=== PATIENT | male | born 1945 | race Caucasian/White ===

== ENCOUNTER → 2019-12-17 | Outpatient (CLI) | payer MEDICARE, OTHER ==
--- NOTE | 2019-12-17 09:33 | Diagnostic Imaging Report ---
X-ray KUB History: Kidney stones Comparison: None. Findings: The study is submitted on 2 images. There is presence of at least 3 calcific densities overlying the right kidney. One measures approximately 7.4 mm. The other measures approximately 20 mm. A third density measures 7 mm. There is no calcific density overlying the left kidney. There is no calcific density seen along the course of the ureters. Multiple small pelvic densities most likely represent pelvic phleboliths. Another density in the right iliac fossa overlies the:. Incidental findings: No aggressive bony lesions. Lung bases clear. Copious amounts of fecal matter in the colon. Surgical clarke in the right inguinal fossa. Vascular calcification. Impression: At least 3 right renal calculi as above. Signed by: Danny Mccall MD on 12/17/2019 9:30 AM
--- NOTE | 2019-12-17 09:41 | Diagnostic Imaging Report ---
Renal ultrasound Comparison: 09/14/2012 Clinical History: UTI Technique: Sonographic evaluation of the kidneys was performed. Multiple images were submitted for interpretation, using a low-frequency curved transducer. Right kidney: The kidney measures 9.7 x 6.2 x 5 cm. The cortical echogenicity is within normal limits. The cortex measures 1.6 cm. There is no evidence of a focal mass. There is no evidence of hydronephrosis. There is no evidence of a shadowing stone. There is no evidence of a cyst. There is no evidence of a perinephric fluid collection. Flow is visualized to the right kidney. Left kidney: The kidney measures 9.9 x 5.6 x 4.9 cm cm. The cortical echogenicity is within normal limits. The cortex measures 1.8 cm. There is no evidence of a focal mass. There is no evidence of hydronephrosis. There is no evidence of a shadowing stone. There is ultrasonographic evidence of a simple midpole renal cyst measuring approximately 0.8 cm. There is no evidence of a perinephric fluid collection. Flow is visualized to the left kidney. Survey images of the bladder demonstrate no abnormality. The post void residual is 109.1 cc. The prostate gland measures 2.6 x 2.6 x 3.2 cm with a volume of 11.3 cc. Impression: No structural abnormality of the visualized kidney and parts of the urinary tract. No calculi. No hydronephrosis. Signed by: Danny Mccall MD on 12/17/2019 9:38 AM
== END ==
LOC: US 08:33
PROVIDERS: ATTEND Urology
DX: N20.0 Calculus of kidney (principal); N39.0 Urinary tract infection, site not specified
CPT/HCPCS: 74018; 76770; 76857

== ENCOUNTER 2020-04-16 14:28 | Emergency (ER) | payer MEDICARE, OTHER ==
--- NOTE | 2020-04-16 14:30 | NUR ---
BLADDER SCAN 115
--- OUTSIDE RECORDS SUMMARY | 2020-04-16 15:09 | XMS REPORT | Clinical Summary ---
Author Author [facility] Address Unknown Phone Unavailable Care Team Providers Care Pusher Operator Name Role Phone Asked, No Pcp PCP Unavailable Allergies Not on File Medications Not on file Active Problems Not on file Encounters Care Team Description Date Type Specialty Jayda Alfonso MD Bilateral pulmonary embolism (HCC) 11/08/2019 Hospital Radiology Encounter Jayda Alfonso MD Acute embolism and thrombosis of unspeci fied deep veins of right lower extremity (HCC) 11/08/2019 [facility] Procedural Cardiolo gy Encounter 11/08/2019 Travel 11/05/2019 Travel 10/27/2019 Travel Jayda Alfonso MD Other pulmonary embolism without acute c or pulmonale (HCC) (Primary Dx); Bilateral pulmonary embolism (HCC); Acute embolism and thrombosis of unspecified deep veins of right lower extremity (HCC); Dyspnea and respiratory abnormalities 10/18/2019 Transcribe Access Orders after 04/16/2019 Social History Date Tobacco Use Types Packs/Day Years Used Never Assessed Sex Assigned at Date Recorded Not on file Last Filed Vital Signs Not on file Plan of Treatment Health Maintenance Due Date Last Done Comments COLONOSCOPY SCREENING 1996 SHINGLES VACCINES (#1) 1996 INFLUENZA VACCINE 01/08/2020 08/17/2019 65+ PNEUMOCOCCAL VACCINE Completed 10/28/2012 Procedures Comments Procedure Name Priority Date/Time Associated Diag nosis NM LUNG PERFUSION IMAGING Routine 11/08/2019 Bila teral pulmonary 12:55 PM CDT embolism (HCC) US DUPLEX VENOUS LOWER Routine 11/08/2019 Acute e mbolism and EXTREMITY RIGHT 11:44 AM CDT thrombosis of unspe cified deep veins of right lower extremity (HCC) after 04/16/2019 Results * NM Lung Perfusion Imaging (11/08/2019 12:55 PM CDT) Specimen Narrative Performed At PROCEDURE: NM LUNG PERFUSION IMAGING [facility] INDICATION: Pulmonary embolism. COMPARISON: No relevant comparison im aging. TECHNIQUE: The patient was injected wit h 5 mCi of Tc-99m MAA, IV. Planar images of the chest were obtained. FINDINGS: Small to moderate-sized def ects are noted in the lung bases. No large size defects. IMPRESSION: 1. Low probability for acute PE. 2. No evidence for significant chroni c PE. [facility]-[id number] Procedure Note Interface, Radiology Results Incoming - 11/08/2019 1:16 PM CDT PROCEDURE: NM LUNG PERFUSION IMAGING INDICATION: Pulmonary embolism. COMPARISON: No relevant comparison imaging. TECHNIQUE: The patient was injected with 5 mCi of Tc-99m MAA, IV. Planar images of the chest were obtained. FINDINGS: Small to moderate-sized defects are noted in the lung bases. No large size defects. IMPRESSION: 1. Low probability for acute PE. 2. No evidence for significant chronic PE. [facility]-[id number] Performing Organization Address City/State/ZIP Code P gurpreet Number [facility] [address] [place] [address] * duplex venous lower extremity (11/08/2019 11:44 AM CDT) Specimen Narrative Performed At [facility] Vascular U ltrasound Laboratory Lower Extr emity Venous Report [id number], [address] [address], [place] [address] Pat.Name: CEASAR ARGUETA.ID: [id number] .Date: 11/08/2019 Refer.MD: JAYDA ALFONSO MD Exam Time: 11:24:00 AM Study Type:LE Venous Height: 67in Weight: 177lb BSA: 1.92 m2 Age: 11 1945,89Y Sex: MALE Sonogrphr: Aarti Harris RVT Pat. Stat.:Outpatient Tape Vol: JJ, CPT - 4: 96720 Echo Event ID:[id number] Order ID: [id number] Reason for Study:Follow up on history o f DVT in RLE. History of PE. Procedures: Colorflow, Grayscale/2D, Pu lsed wave Doppler Race: C SUMMARY: * Normal Reflux Criteria: < 0.5 secon ds * Abnormal Reflux Criteria: > or equa l to 0.5 seconds DUPLEX SCAN OBSERVATIONS Deep Veins Superficial Veins Right Left Right Left EIV GSV (prox) Normal CFV Normal Normal (above knee) Femoral Normal GSV (dist) Normal Profunda Normal (below knee) Popliteal Normal PT (prox) Normal SSV Normal PT (dist) Normal Peroneal Normal Gastrocs Normal RIGHT:There is normal compressibility w ith no evidence of echogenic material noted within the lumen of the visualized veins.Colorflow and Doppler signals are normal. LEFT:There is normal compressibility wi th no evidence of echogenic material noted within the lumen of the common femoral vein.Colorflow and Doppler signals are normal. PRELIMINARY FINDINGS 1. No evidence of venous thrombosis of visualized veins. 2. Incidental finding- enlarged lymph n odes seen in the right groin region. PHYSICIAN INTERPRETATION Venous examination of the right lower e xtremity and left groin demonstrated no evidence of venous thro mbosis in the visualized veins. Normal compressibility and augmentation of all veins visualized. Incidental finding- enlarged lymph node s seen in the right groin region. FINDINGS: Signed 11/08/2019 02:20 PM Polo Flores MD, RPVI Procedure Note Interface, Radiology Results In - 11/08/2019 2:20 PM CDT Vascular Ultrasound Laboratory Lower Extremity Venous Report [id number] [address], [place] [address] Pat.Name: CEASAR ARGUETA.ID: [id number] .Date: 11/08/2019 Refer.MD: JAYDA ALFONSO MD Exam Time: 11:24:00 AM Study Type:LE Venous Height: 67in Weight: 177lb BSA: 1.92 m2 Age: 11 1945,89Y Sex: MALE Sonogrphr: Aarti Harris RVT Pat. Stat.:Outpatient Tape Vol: JJ, CPT - 4: 30762 Echo Event ID:[id number] Order ID: [id number] Reason for Study:Follow up on history of DVT in RLE. History of PE. Procedures: Colorflow, Grayscale/2D, Pulsed wave Doppler Race: C SUMMARY: * Normal Reflux Criteria: < 0.5 seconds * Abnormal Reflux Criteria: > or equal to 0.5 seconds DUPLEX SCAN OBSERVATIONS Deep Veins Superficial Veins Right Left Right Left EIV GSV (prox) Normal CFV Normal Normal (above knee) Femoral Normal GSV (dist) Normal Profunda Normal (below knee) Popliteal Normal PT (prox) Normal SSV Normal PT (dist) Normal Peroneal Normal Gastrocs Normal RIGHT:There is normal compressibility with no evidence of echogenic material noted within the lumen of the visualized veins.Colorflow and Doppler signals are normal. LEFT:There is normal compressibility with no evidence of echogenic material noted within the lumen of the common femoral vein.Colorflow and Doppler signals are normal. PRELIMINARY FINDINGS 1. No evidence of venous thrombosis of v isualized veins. 2. Incidental finding- enlarged lymph no abdirizak seen in the right groin region. PHYSICIAN INTERPRETATION Venous examination of the right lower extremity and left groin demonstrated no evidence of venous thrombosis in the visualized veins. Normal compressibility and augmentation of all veins visualized. Incidental finding- enlarged lymph nodes seen in the right groin region. FINDINGS: Signed 11/08/2019 02:20 PM Polo Flores MD, RPVI Performing Organization Address City/State/ZIP Code [facility] Number [facility] [address] [place] [address] after 04/16/2019 Insurance Type Payer Benefit Subscriber ID Effective Phone Address Plan / Dates Group Medicare MEDICARE MEDICARE [id number] 2011- JAVIER, PART A AND Present [place] Commercial [employer] OF [id number] 2012-P MARGARET rose Advance Directives For more information, please contact: [phone] Patient Mathematician Explanation Type Date Recorded Advance Directives, Living Will and Medical Power of [place]
--- OUTSIDE RECORDS SUMMARY | 2020-04-16 15:09 | XMS REPORT | Clinical Summary ---
Author Author LISET [facility] Address Unknown Phone Unavailable Care Team Providers Care [facility] [employer] Name Role Phone John Garrett MD PCP [phone] Allergies Comments Active Allergy Reactions Severity Noted Date Clopidogrel 06/20/2019 Medications End Date Status Medication Sig Dispensed Refills Start Date Active ALLOPURINOL ORAL Take 300 mg 0 by mouth daily . Active atorvastatin (LIPITOR) 80 Take 80 mg by 0 MG tablet mouth daily. 06/26/2020 Active aspirin 81 MG EC tablet Take 1 tablet 0 (81 mg total) 0 by mouth daily Ok to resume 1 week post op on 06/28/19. 06/26/2020 Active metoprolol (LOPRESSOR) 25 Take 0.5 0 06/09 MG tablet tablets (12.5 0 mg total) by mouth 2 (two) times daily. 01/27/2021 Active busPIRone (BUSPAR) 10 MG Take 1 tablet 0 01/27 tablet (10 mg total) 0 by mouth 2 (two) times daily. Active lactulose (CHRONULAC) 20 Take 15 mLs 0 01/27 gram/30 mL solution (10 g total) 0 by mouth 3 (three) times daily as needed. 01/28/2021 Active alfuzosin (UROXATRAL) 10 Take 1 tablet 0 01/28 mg 24 hr tablet (10 mg total) 0 by mouth daily with dinner You already have this at home. 01/29/2021 Active phenytoin (DILANTIN) 200 Take 1 60 capsule 3 0 MG ER capsule capsule (200 0 mg total) by mouth 2 (two) times daily No more refills through my office.. 01/28/2021 Active amantadine HCL Take 1 0 (SYMMETREL) 100 mg capsule (100 0 capsule mg total) by mouth daily You ALready have this at home. 01/28/2020 Discontinued (Stop Taking at Discharge) omega-3 fatty Take by mouth 0 acids-vitamin E (FISH daily. OIL) 1,000 mg Cap 06/20/2019 Discontinued (Error) lisinopril Take 10 mg by 0 (PRINIVIL,ZESTRIL) 10 MG mouth daily. tablet 06/27/2019 Discontinued (Reorder) aspirin 81 MG EC tablet Take 1 tablet 0 (81 mg total) 9 by mouth daily. 07/16/2019 nitroglycerin (NITROSTAT) Put 1 pill 90 tablet 1 0.4 MG SL tablet under tongue 9 every 5min as needed for chest pain.No more than 3 doses in 15min. 06/21/2019 Discontinued ticagrelor (BRILINTA) 90 Take 1 tablet 60 tablet 3 mg Tab tablet (90 mg total) 9 by mouth 2 (two) times daily. 01/28/2020 Discontinued (Stop Taking at Discharge) losartan (COZAAR) 100 MG Take 100 mg 0 tablet by mouth daily. 06/27/2019 Discontinued (Stop Taking at Discharge) metoprolol (TOPROL-XL) 25 Take 25 mg by 0 MG 24 hr tablet mouth daily. 07/28/2019 amantadine HCl Take 10 mLs 600 mL 0 (SYMMETREL) 50 mg/5 mL (100 mg 0 solution total) by mouth 2 (two) times daily for 30 days. 01/28/2020 Discontinued (Stop Taking at Discharge) amLODIPine (NORVASC) 2.5 Take 1 tablet 0 06/28 MG tablet (2.5 mg 0 total) by mouth daily. 01/28/2020 Discontinued (Stop Taking at Discharge) ondansetron (ZOFRAN) 4 Inject 2 mLs 20 mL 0 mg/2 mL injection (4 mg total) 0 intravenously every 8 (eight) hours as needed. 07/07/2019 HYDROcodone-acetaminophen Take 1 tablet 30 tablet 0 (NORCO 5-325) 5-325 mg by mouth 0 per tablet every 6 (six) hours as needed for Pain (moderate pain 4-6) for up to 10 days. Max Daily Amount: 4 tablets 01/28/2020 Discontinued (Stop Taking at Discharge) morphine 2 mg/mL Inject 1 mL 0 injection (2 mg total) 0 intravenously every 4 (four) hours as needed (severe pain 7-10). Max Daily Amount: 12 mg 01/28/2020 Discontinued (Stop Taking at Discharge) senna-docusate (SENOKOT Take 1 tablet 0 S) 8.6-50 mg per tablet by mouth 2 0 (two) times daily. 07/27/2019 bisacodyl (DULCOLAX) 5 mg Take 2 30 tablet 0 EC tablet tablets (10 0 mg total) by mouth daily as needed for Constipation for up to 30 days. 07/07/2019 bisacodyl (DULCOLAX) 10 Place 1 12 0 mg suppository suppository suppository 0 (10 mg total) rectally daily as needed for up to 10 days. 01/28/2020 Discontinued (Stop Taking at Discharge) hydrALAZINE (APRESOLINE) Inject 0.5 1 mL 0 0 20 mg/mL injection mLs (10 mg 0 total) intravenously every 15 (fifteen) minutes as needed (goal SBP<130). 01/28/2020 Discontinued (Stop Taking at Discharge) labetalol (NORMODYNE, Inject 2 mLs 0 06/27/19 2 TRANDATE) 5 mg/mL Syrg (10 mg total) 0 intravenously every 15 (fifteen) minutes as needed (High Blood Pressure SBP>180). 01/28/2020 Discontinued (Stop Taking at Discharge) white petrolatum-mineral Place 1 0 06/27 oil 80-20 % Oint application 0 into both eyes nightly. 07/11/2019 chlorhexidine (PERIDEX) Use as 120 mL 0 0.12 % solution directed 15 0 mLs in the mouth or throat 2 (two) times daily for 14 days. 01/28/2020 Discontinued (Stop Taking at Discharge) famotidine, PF, 20 mg/2 Inject 2 mLs 0 mL Soln (20 mg total) 0 intravenously 2 (two) times daily. 01/28/2020 Discontinued (Stop Taking at Discharge) midazolam (VERSED) 1 Inject 1 mL 0 mg/mL Soln injection (1 mg total) 0 intravenously every 2 (two) hours as needed (anxiety/agit ation). Max Daily Amount: 12 mg 01/28/2020 Discontinued (Stop Taking at Discharge) pantoprazole (PROTONIX) Inject 40 mg 0 in D5W (MBP) IVPB intravenously 0 daily. 01/28/2020 Discontinued (Stop Taking at Discharge) calcium gluconate IVPB Inject 1 g 0 02 intravenously 0 as needed (For Serum ionized Calcium 1 to 1.1 mMol/L). 01/28/2020 Discontinued (Stop Taking at Discharge) calcium gluconate IVPB Inject 2 g 0 02 intravenously 0 as needed (For Serum ionized Calcium 0.85 to 0.99 mMol/L). 01/28/2020 Discontinued (Stop Taking at Discharge) polyethylene glycol Take 17 g by 14 each 0 06/28 (GLYCOLAX) 17 gram packet mouth daily. 0 07/11/2019 benzoyl peroxide 2.5 % Apply 1 0 02 Crea application 0 topically 2 (two) times daily for 14 days. 01/29/2020 Discontinued amantadine HCL Take 1 0 (SYMMETREL) 100 mg capsule (100 0 capsule mg total) by mouth daily. Active Problems Problem Noted Date Seizure 01/27/2020 Left acute arterial ischemic stroke, MCA (middle cere bral artery) 06/21/2019 Hemorrhagic stroke 06/21/2019 Cerebral edema 06/21/2019 Midline shift of brain due to hematoma 06/21/2019 Encephalopathy 06/21/2019 Bilateral carotid artery disease 06/21/2019 CAD (coronary artery disease) 06/21/2019 HTN (hypertension) 06/21/2019 Acute respiratory failure 06/21/2019 TIA (transient ischemic attack) 06/20/2019 Aphasia 06/20/2019 Chest pain, unspecified type 07/10/2018 NSTEMI (non-ST elevated myocardial infarction) 07/10 CAD S/P percutaneous coronary angioplasty 06/30/2013 Encounters Care Team Description Date Type Specialty Gladys Jaimes MD Daniel, Jamuna V., MD Seizure (HCC) (Primary Dx) 01/27/2020 [facility] dicine - Encounter 01/29/2020 01/27/2020 Travel Jaya Gifford MD 06/21/2019 Anesthesia Event Carlos Mohan MD CRANIOTOMY 06/21/2019 Surgery Steven Srinivasan MD Neason, MD Joe Nunez, MD Jennifer Farnsworth, MD Riya Desai, José Antonio Romero MD TIA (transient ischemic attack) (Primary Dx); Aphasia; Hemorrhagic stroke (HCC); Left acute arterial ischemic stroke, MCA (middle cerebral artery) (HCC); Dysphagia, unspecified type; Impaired mobility and ADLs 06/20/2019 [facility] dicine - Encounter 06/27/2019 06/20/2019 Orders Only [facility] dicine 06/20/2019 Travel after 04/16/2019 Family History Medical History Relation Name Comments Coronary artery disease Father Fatal [place] Deep vein thrombosis Mother Relation Name Status Comments Father Mother Other Social History Date Tobacco Use Types Packs/Day Years Used Quit: 06/30/1978 Former Smoker Smokeless Tobacco: Never Used Drinks/Week oz/Week Comments Alcohol Use No Sex Assigned at Date Recorded Not on file Last Filed Vital Signs Reading Time Taken Comments Vital Sign 147/82 01/29/2020 11:11 AM CDT Blood Pressure 79 01/29/2020 11:11 AM CDT Pulse 36 C (96.8 F) 01/29/2020 11:11 AM CDT Temperature 18 01/29/2020 11:11 AM CDT Respiratory Rate 99% 01/29/2020 11:11 AM CDT Oxygen Saturation 24% 06/23/2019 11:12 PM [facility]ELER Inhaled Oxygen Concentration 88.5 kg (195 lb) 01/27/2020 9:39 AM CDT Weight 182.9 cm (6') 01/27/2020 9:39 AM CDT Height 26.45 01/27/2020 9:39 AM CDT Body Mass Index Plan of Treatment Health Maintenance Due Date Last Done Comments COLON CANCER SCREENING 1945 COLONOSCOPY PNEUMOCOCCAL 65+ YRS (1 2011 of 1 - [id number]) MEDICARE ANNUAL WELLNESS 04/10/2012 (YEAR 2 or FIRST YEAR if no IPPE) INFLUENZA VACCINE (#1) 2020 Implants Device Identifier Shelf Expiration Date Model / Serial / L ot Implanted Type Area Manufactur er 421.527 / / Cvr Bur-Hl Lp-Neuro 17mm Ti Ns IMPLANTS SYNTHES :SY 421.527 - [id number] [employer]TH[employer] [place] Implanted: Qty: 2 on 06/21/2019 by Carlos Mohan MD at [facility] 421.502 / / Plt Str Lp-Neuro 2h 12mm Ti Ns IMPLANTS SYNTHES :SY 421.502 - [id number] [employer]TH[employer] [place] Implanted: Qty: 2 on 06/21/2019 by Carlos Mohan MD at [facility] .104.05 / / Scr Sd Mtrxneu 4mm Ti Ns IMPLANTS SYNTHES:SY .104.05 - [id number] NTHES [place] Implanted: Qty: 12 on 06/21/2019 by Carlos Mohan MD at [facility] [id number] 03/18/2020 [id number] / / [id number] [employer]nergy [employer] 2.50 X 12 [place] Implanted: Qty: 1 on 07/15/2018 by John Garnett MD at [facility] 04/08/2019 [id number] / / 6f Angioseal TERUMO Implanted: Qty: 1 on 07/15/2018 by John Zaidi MD at [facility] Description:6 F angioseal deploed in RFA [id number] / / Synergy 3.0x12mm [place] Implanted: Qty: 1 on 07/15/2018 by John Garnett MD at [facility] Procedures Comments Procedure Name Priority Date/Time Associated Diag nosis PHENYTOIN LEVEL, TOTAL STAT 01/29/2020 2:27 PM CDT PHENYTOIN LEVEL, TOTAL Routine 01/29/2020 AND FREE 5:52 AM CDT CBC (HEMOGRAM ONLY) Routine 01/29/2020 5:52 AM CDT BASIC METABOLIC PANEL (7) Routine 01/29/2020 5:52 AM CDT CARBAMAZEPINE LEVEL Routine 01/29/2020 5:52 AM CDT TROPONIN I STAT 01/29/2020 5:52 AM CDT EEG AWAKE AND DROWSY Routine 01/28/2020 8:11 AM CDT CBC (HEMOGRAM ONLY) Routine 01/28/2020 1:22 AM CDT BASIC METABOLIC PANEL (7) Routine 01/28/2020 1:22 AM CDT TROPONIN I STAT 01/28/2020 1:22 AM CDT COMPREHENSIVE METABOLIC STAT 01/27/2020 PANEL 1:03 PM CDT TROPONIN I STAT 01/27/2020 1:03 PM CDT XR CHEST 1 VIEW STAT 01/27/2020 PORTABLE/BEDSIDE 11:09 AM CDT SARS-COV2/RT-PCR ([facility] & STAT 01/27/2020 REF LABS) 10:45 AM CDT URINALYSIS W/ REFLEX STAT 01/27/2020 URINE CULTURE 10:44 AM CDT CBC W/PLT COUNT & AUTO STAT 01/27/2020 DIFFERENTIAL 10:41 AM CDT CBC W/PLT COUNT & AUTO STAT 01/27/2020 DIFFERENTIAL 10:[address] SPINE CERVICAL WITHOUT STAT 01/27/2020 IV CONTRAST 10:[address] BRAIN WITHOUT IV STAT 01/27/2020 CONTRAST 10:29 AM CDT REPORT OF PROCEDURE - 06/30/2019 ENDOSCOPY SCAN 10:00 AM [facility] UROLOGY REPORT - SCAN 06/29/2019 3:24 PM [facility]AND [facility]OVELER RHYTHM STRIP - SCAN 06/29/2019 3:23 PM [facility]ER POCT-GLUCOSE METER Routine 06/27/2019 1:17 PM [facility]ER POCT-GLUCOSE METER Routine 06/27/2019 5:49 AM [facility]ER PHOSPHORUS Routine 06/27/2019 5:10 AM [facility] MAGNESIUM Routine 06/27/2019 5:10 AM S[facility] SHOVELER CBC (HEMOGRAM ONLY) Routine 06/27/2019 5:10 AM [facility]ER POCT-GLUCOSE METER Routine 06/26/2019 11:57 PM [facility]ER XR ABDOMEN / KUB 1 VIEW STAT 06/26/2019 9:28 PM [facility]ER POCT-GLUCOSE METER Routine 06/26/2019 5:59 PM [facility]ER POCT-GLUCOSE METER Routine 06/26/2019 12:58 PM S[facility]ER POCT-GLUCOSE METER Routine 06/26/2019 6:57 AM [facility]ER PHOSPHORUS Routine 06/26/2019 5:49 AM S[facility]OVELER MAGNESIUM Routine 06/26/2019 5:49 AM SAND SHOVELER CBC (HEMOGRAM ONLY) Routine 06/26/2019 5:49 AM SAND [facility]ELER XR ABDOMEN / KUB 1 VIEW STAT 06/26/2019 5:13 AM SAND SHOVELER POCT-GLUCOSE METER Routine 06/25/2019 10:13 PM [facility]ER RHYTHM STRIP - SCAN 06/25/2019 3:50 PM [facility]ER XR ESOPH SWALLOW FUNCTION Routine 06/25/2019 W/CINE VIDEO 11:34 AM [facility]ER POCT-GLUCOSE METER Routine 06/25/2019 6:23 AM [facility]ER PHOSPHORUS Routine 06/25/2019 4:45 AM [facility]ER MAGNESIUM Routine 06/25/2019 4:45 AM SAND [facility]OVELER CBC (HEMOGRAM ONLY) Routine 06/25/2019 4:45 AM SAND SHOVELER POCT-GLUCOSE METER Routine 06/25/2019 12:51 AM S[facility]OVELER POCT-GLUCOSE METER Routine 06/24/2019 5:30 PM SAND SHOVELER POCT-GLUCOSE METER Routine 06/24/2019 12:28 PM SAND SHOVELER POCT-GLUCOSE METER Routine 06/24/2019 6:13 AM [facility]ER PHOSPHORUS Routine 06/24/2019 3:44 AM [facility]ER MAGNESIUM Routine 06/24/2019 3:44 AM [facility]OVELER BASIC METABOLIC PANEL (7) Routine 06/24/2019 3:44 AM [facility] CBC (HEMOGRAM ONLY) Routine 06/24/2019 3:44 AM [facility]ER POCT-GLUCOSE METER Routine 06/23/2019 11:17 PM [facility]ER TRANSFUSION SERVICE 06/23/2019 REPORT - SCAN 6:[address] BRAIN WITHOUT IV BRAXTON 06/23/2019 CONTRAST 5:00 PM [facility]ER XR CHEST 1 VIEW Routine 06/23/2019 PORTABLE/BEDSIDE 2:19 PM [facility] POCT-GLUCOSE METER Routine 06/23/2019 12:57 PM S[facility]OVELER POCT-GLUCOSE METER Routine 06/23/2019 6:05 AM [facility]ER PHOSPHORUS Routine 06/23/2019 5:42 AM S[facility]ELER MAGNESIUM Routine 06/23/2019 5:42 AM SAND [facility]OVELER BASIC METABOLIC PANEL (7) Routine 06/23/2019 5:42 AM [facility]ER CBC (HEMOGRAM ONLY) Routine 06/23/2019 5:42 AM [facility]ER LIPID PANEL Routine 06/23/2019 5:42 AM SAND SHOVELER POCT-GLUCOSE METER Routine 06/23/2019 12:27 AM SAND SHOVELER PREPARE LEUKO-REDUCED STAT 06/22/2019 PLATELETS 11:54 PM SAND SHOVELER ECHOCARDIOGRAM REPORT - 06/22/2019 SCAN 9:22 PM [facility]ER POCT-GLUCOSE METER Routine 06/22/2019 6:29 PM [facility]ER PHOSPHORUS Routine 06/22/2019 6:24 PM [facility]ER POTASSIUM Routine 06/22/2019 6:24 PM S[facility]ER MAGNESIUM Routine 06/22/2019 6:24 PM [facility] TRANSFUSION SERVICE 06/22/2019 REPORT - SCAN 6:02 PM [facility]ER XR ABDOMEN / KUB 1 VIEW STAT 06/22/2019 12:06 PM [facility]ER 2D ECHO W/ DOPPLER Routine 06/22/2019 (CW/PW/COLOR) 9:23 AM [facility] PHOSPHORUS Routine 06/22/2019 3:12 AM S[facility]ER MAGNESIUM Routine 06/22/2019 3:12 AM S[facility] SHOVELER BASIC METABOLIC PANEL (7) Routine 06/22/2019 3:12 AM [facility]ER CBC (HEMOGRAM ONLY) Routine 06/22/2019 3:12 AM [facility]ER LIPID PANEL Routine 06/22/2019 3:12 AM S[facility]ELER TRANSFUSE LEUKO-REDUCED STAT(After 06/21/2019 PLATELETS Hours 12:23 PM SAND SHOVELER Page Staff) TISSUE EXAM AP Routine 06/21/2019 10:56 AM [facility]ER CRANIOTOMY 06/21/2019 Brain bleed (HCC) 9:05 AM [facility]ER POCT-P2Y12 PLATELET Routine 06/21/2019 AGGREGATION 8:00 AM [facility] HEMOGLOBIN A1C Routine 06/21/2019 7:19 AM [facility]ER POCT-GLUCOSE METER Routine 06/21/2019 6:[address] BRAIN WITHOUT IV BRAXTON 06/21/2019 CONTRAST 6:05 AM [facility]ER TRANSFUSE LEUKO-REDUCED STAT(After 06/21/2019 PLATELETS Hours 5:28 AM SAND SHOVELER Page Staff) ABORH, MANUAL STAT 06/21/2019 2:16 AM [facility]ER CBC W/PLT COUNT & AUTO Routine 06/21/2019 DIFFERENTIAL 1:43 AM [facility]ER LIPID PANEL Routine 06/21/2019 1:43 AM [facility]ER HEPATIC FUNCTION PANEL Routine 06/21/2019 1:43 AM [facility]ER MAGNESIUM Routine 06/21/2019 1:43 AM S[facility]ER CBC W/PLT COUNT & AUTO Routine 06/21/2019 DIFFERENTIAL 1:43 AM SAND [facility]ELER BASIC METABOLIC PANEL (7) Routine 06/21/2019 1:43 AM [facility]ER POCT-GLUCOSE METER Routine 06/21/2019 1:32 AM S[facility]ER TYPE AND SCREEN, STAT 06/21/2019 AUTOMATED 1:[address]/CTA CAROTID STAT 06/20/2019 11:32 PM S[facility]ER CTA BRAIN STAT 06/20/2019 11:32 PM [facility]ER POCT-GLUCOSE METER Routine 06/20/2019 10:55 PM S[facility]ER MR BRAIN WITHOUT IV STAT 06/20/2019 CONTRAST 10:24 PM [facility]ER CONT WAVE PULSED DOPPLER Routine 06/20/2019 9:11 PM S[facility]ER CTA BRAIN STAT 06/20/2019 6:[address]/CTA CAROTID STAT 06/20/2019 6:51 PM SAND SHOVELER CBC W/PLT COUNT & AUTO STAT 06/20/2019 DIFFERENTIAL 6:27 PM S[facility] SH[facility]ER B-TYPE NATRIURETIC FACTOR STAT 06/20/2019 (BNP) 6:27 PM SAND SH[facility]ER PT/APTT STAT 06/20/2019 6:27 PM SAND SH[facility]ER CBC W/PLT COUNT & AUTO STAT 06/20/2019 DIFFERENTIAL 6:27 PM SAND SHOVELER TROPONIN I STAT 06/20/2019 6:27 PM SAND SHOVELER MAGNESIUM STAT 06/20/2019 6:27 PM SAND SHOVELER BASIC METABOLIC PANEL (7) STAT 06/20/2019 6:27 PM SAND SHOVELER POCT-GLUCOSE METER Routine 06/20/2019 6:[address] BRAIN/STROKE TEST STAT 06/20/2019 DESIGN 6:14 PM SAND [facility]ER ECG 12-LEAD Routine 06/20/2019 6:06 PM SAND [facility]ELER Procedure Note - Interface, External Ris In - 06/21/2019 6:17 AM S[facility]ER Ventricula r Rate 67 BPM Atrial Rate 67 BPM P-R Interval 178 ms QRS Duration 88 ms Q-T Interval 370 ms QTC Calculatio n(Bazett) 390 ms P [place] 36 degrees R [place] 9 degrees T [place] 22 degrees Normal sinus rhythm Inferior infarct (cited on or before 6) Cannot rule out Anterior infarct , age undetermin ed Abnormal ECG When compared with ECG of 9 18:05, Nonspecifi c T wave abnormalit y now evident in Inferior leads QT has shortened ECG 12-LEAD STAT 06/20/2019 6:06 PM SAND SH[facility]ER after 04/16/2019 Results * Phenytoin level, total (01/29/2020 2:27 PM CDT) Pathologist [facility] Phenytoin 7.0 (L) 10.0 - 20.0 ug/mL [facility] Specimen Blood Narrative Performed At Jingle Writer ID - GRANT Leal [facility] Performing Organization Address City/State/Zipcode Ph one Number [place] [phone] [place], [place] [address] [facility] * Troponin I (01/29/2020 5:52 AM CDT) Only the most recent of 4 results within the time period is included. Pathologist [facility] Troponin I 0.01 0.00 - 0.03 ng/mL [facility] Specimen Blood Narrative Performed At Troponin I (TnI) levels must be interpreted in the co ntext of the presenting [facility] symptoms and the clinical findings. Elevated TnI leve ls indicate myocardial [facility] damage, but are not specific for ischem ic heart disease. Elevated TnI levels are seen in patients with other cardiac con ditions (including myocarditis and congestive heart failure), and slight T nI elevations occur in patients with other conditions, including sepsis, shae al failure, acidosis, acute neurological disease, and persistent tachyarrhythmia . Jingle Writer ID - GRANT M Performing Organization Address City/State/Zipcode Ph one Number [address] [place] * CBC (Hemogram only) (01/29/2020 5:52 AM CDT) Only the most recent of 8 results within the time period is included. WBC 6.9 3.5 - 10.5 K/L [facility] RBC 3.88 (L) 4.63 - 6.08 M/L [facility] Hemoglobin 12.2 (L) 13.7 - 17.5 GM/DL [facility] Hematocrit 35.8 (L) 40.1 - 51.0 % [facility] MCV 92.3 (H) 79.0 - 92.2 fL [facility] MCH 31.4 25.7 - 32.2 pg [facility] MCHC 34.1 32.3 - 36.5 GM/DL [facility] RDW 15.9 (H) 11.6 - 14.4 % [facility] Platelets 275 150 - 450 K/CU MM [facility] MPV 8.9 (L) 9.4 - 12.4 fL [facility] nRBC 0 0 - 0 /100 WBC [facility] Specimen Blood Performing Organization Address City/State/Zipcode Ph one Number [facility] [address] [place], [place] [address] [facility] * Phenytoin level, total and free (01/29/2020 5:52 AM CDT) Phenytoin 9.0 (L) 10.0 - 20.0 ug/mL [facility] MAN Comment: HOSPITAL Testing performed at [facility]. Dilantin, Free 0.55 (L) 1.00 - 2.00 mcg/ml [facility] RMAN Comment: HOSPITAL Testing performed at [facility]. Specimen Blood Performing Organization Address City/[facility] Ph one Number [facility] [address], [address] [place] [address] * Carbamazepine level (01/29/2020 5:52 AM CDT) Carbamazepine 4.1 4.0 - 12.0 ug/mL [facility] Specimen Blood Narrative Performed At Jingle Writer ID - GRANT Leal [facility] Performing Organization Address City/[facility] Ph one [facility] [place] [phone] [place], [place] [address] [facility] * Basic Metabolic Panel (01/29/2020 5:52 AM CDT) Only the most recent of 7 results within the time period is included. Sodium 132 (L) 136 - 145 meq/L [facility] Potassium 4.4 3.5 - 5.1 meq/L [facility] Chloride 99 98 - 107 meq/L [facility] CO2 24 22 - 29 meq/L [facility] BUN 12 7 - 21 mg/dL [facility] Creatinine 0.92 0.57 - 1.25 mg/dL [facility] Glucose 103 70 - 105 mg/dL [facility] Calcium 9.7 8.4 - 10.2 mg/dL [facility] EGFR 81Comment: ESTIMATED GFR IS mL/min/1.[address] [facility] NOT ACCURATE CREATININE [facility] CLEARANCE IN PREDICTING MEDICAL CENTER GLOMERULAR FILTRATION RATE. ESTIMATED GFR IS NOT APPLICABLE FOR DIALYSIS PATIENTS. Specimen Blood Narrative Performed At Jingle Writer SHEN - GRANT Leal [facility] Performing Organization Address City/State/Zipcode Ph one Number [facility] [address] [place], [place] [address] [facility] * EEG AWAKE AND DROWSY (01/28/2020 8:11 AM CDT) Specimen Narrative Performed At Date(s) of EE01/28/2020 GE RIS Date of report: 01/28/2020 Start time: 7:36 AM Stop time: 8:11 AM ACC#: [id number] EEG #: [id number] CPT: 53626 ICD10: R56.9 HISTORY: 74 year old male had witnessed GTC with postictal confusion, last seizure was 09/2019. Patient had ac ethan ischemic that progressed to hemorrhagic stroke 06/2019 MEDICATIONS THAT COULD AFFECT EEG: Allo purinol, amlodipine, Aspirin, Atorvastatin, Famotidine, Hydralazine, Labetalol, Losartan, Metoprolol, Midazolam, Morphine, Ondans etron, Pantoprazole, Senna docusate TECHNICAL SUMMARY: This is a digital video-EEG recorded wi 32 input channels reviewed with bipolar and referential montages u sing the modified combinatorial system nomenclature. DESCRIPTION OF RECORD: During a maximally alert state, the pos terior dominant rhythm was 8 Hz and well regulated over the right oc cipital area. The background over the right hemisphere is represente d by 5-7 hz frequencies. The activity over the left hemisphere is do minated by a moderate voltage 1.5 - 3 hz slow waves. The background a mplitudes over the left fronto-central region are higher in vol tage and sharply configured. Rare epileptiform sharp waves are prese nt in the left central region (C3). Drowsy or sleep patterns were not observed. EVENTS: No clinical or electrographic s eizures were recorded. HV: Hyperventilation was not performed. PHOTIC STIMULATION: Flash stimulation w as performed 1-33 Hz. Photic stimulation was physiologic and didn't elicit any abnormal discharges IMPRESSION: Abnormal awake EEG - Mild diffuse background slowing - Focal slowing over the left hemispher e - amplitude asymmetry in the left front o-central area (breach effect) - Rare epileptiform sharp waves in the left central region (C3. CLINICAL CORRELATION: The background sl owing as seen in this record indicate the presence of a mild encepha lopathy. The focal slow activity indicates the presence of a le alvaro affecting broadly the left hemisphere. The background asymmet ry suggests the presence of an underlying skull defect (breach effect) . The epileptiform sharp waves indicate the presence of a lesion with a propensity towards the generation of epileptic seizures. Olivia Keenan MD Neurophysiology/Epilepsy Fellow Attending note: I reviewed this EEG rec ord and I agree with the details of the report. Janel Jalloh MD, PhD Neurophysiology/Epilepsy attending. Procedure Note Interface, External Ris In - 01/28/2020 2:35 PM CDT Date(s) of EE01/28/2020 Date of report: 01/28/2020 Start time: 7:36 AM Stop time: 8:11 AM ACC#: [id number] EEG #: [id number] CPT: 90963 ICD10: R56.9 HISTORY: 74 year old male had witnessed GTC with postictal confusion, last seizure was 09/2019. Patient had acute ischemic that progressed to hemorrhagic stroke 06/2019 MEDICATIONS THAT COULD AFFECT EEG: Allopurinol, amlodipine, Aspirin, Atorvastatin, Famotidine, Hydralazine, Labetalol, Losartan, Metoprolol, Midazolam, Morphine, Ondansetron, Pantoprazole, Senna docusate TECHNICAL SUMMARY: This is a digital video-EEG recorded with 32 input channels reviewed with bipolar and referential montages using the modified combinatorial system nomenclature. DESCRIPTION OF RECORD: During a maximally alert state, the posterior dominant rhythm was 8 Hz and well regulated over the right occipital area. The background over the right hemisphere is represented by 5-7 hz frequencies. The activity over the left hemisphere is dominated by a moderate voltage 1.5 - 3 hz slow waves. The background am plitudes over the left fronto-central region are higher in voltage and sharply configured. Rare epileptiform sharp waves are present in the left central region (C3). Drowsy or sleep patterns were not observed. EVENTS: No clinical or electrographic seizures were recorded. HV: Hyperventilation was not performed. PHOTIC STIMULATION: Flash stimulation was performed 1-33 Hz. Photic stimulation was physiologic and didn't elicit any abnormal discharges IMPRESSION: Abnormal awake EEG - Mild diffuse background slowing - Focal slowing over the left hemisphere - amplitude asymmetry in the left fronto -central area (breach effect) - Rare epileptiform sharp waves in the l eft central region (C3. CLINICAL CORRELATION: The background slowing as seen in this record indicate the presence of a mild encephalopathy. The focal slow activity indicates the presence of a lesion affecting broadly the left hemisphere. The background asymmetry suggests the presence of an underlying skull defect (breach effect). The epileptiform sharp waves indicate the presence of a lesion with a propensity towards the generation of epileptic seizures. Olivia Keenan MD Neurophysiology/Epilepsy Fellow Attending note: I reviewed this EEG record and I agree with the details of the report. Janel Jalloh MD, PhD Neurophysiology/Epilepsy attending. Performing Organization Address City/State/Zipcode Ph one Number GE RIS * Comprehensive metabolic panel (01/27/2020 1:03 PM CDT) Protein, Total 7.3 6.0 - 8.3 gm/dL [facility] Albumin 4.1 3.5 - 5.0 g/dL [facility] Alkaline 128 40 - 150 U/L [facility] Total Bilirubin 0.4 0.2 - 1.2 mg/dL [facility] Sodium 129 (L) 136 - 145 meq/L [facility] Potassium 4.5 3.5 - 5.1 meq/L [facility] Chloride 94 (L) 98 - 107 meq/L [facility] CO2 25 22 - 29 meq/L [facility] BUN 8 7 - 21 mg/dL [facility] Creatinine 0.80 0.57 - 1.25 mg/dL [facility] Glucose 106 (H) 70 - 105 mg/dL [facility] Calcium 9.2 8.4 - 10.2 mg/dL [facility] AST 18 5 - 34 U/L [facility] ALT 23 6 - 55 U/L [facility] EGFR 95Comment: ESTIMATED GFR IS mL/min/1.[address] [facility] NOT ACCURATE CREATININE [facility] CLEARANCE IN PREDICTING [facility] CENTER GLOMERULAR FILTRATION RATE. ESTIMATED GFR IS NOT APPLICABLE FOR DIALYSIS PATIENTS. Specimen Blood Narrative Performed At Jingle Writer ID - NTP [facility] Performing Organization Address City/State/Zipcode Ph one Number [facility] [address] [address] [facility] C[facility] * XR chest 1 view portable / bedside (01/27/2020 11:09 AM CDT) Only the most recent of 2 results within the time period is included. Specimen Narrative Performed At FINAL REPORT [facility] CLINICAL HISTORY: sob TECHNIQUE: 1 view of the chest. COMPARISON: 06/23/2019 IMPRESSION: There are mildly prominent lung marking s. There is no lobar consolidation or significant pleural fl uid. The cardiomediastinal silhouette is magnified by technique. Signed: Waylon Trevino MD Report Verified Date/Time: 01/27/2020 11:25:20 Reading [facility] Reading Room Procedure Note Interface, External Ris In - 01/27/2020 11:30 AM CDT FINAL REPORT CLINICAL HISTORY: sob TECHNIQUE: 1 view of the chest. COMPARISON: 06/23/2019 IMPRESSION: There are mildly prominent lung markings. There is no lobar consolidation or significant pleural fluid. The cardiomediastinal silhouette is magnified by technique. Signed: Waylon Trevino MD Report Verified Date/Time: 01/27/2020 11:25:20 Reading Location: [facility] Radiology Reading Room Performing Organization Address City/State/Zipcode Ph one Number GE R[facility] * SARS-CoV2/RT-PCR (Asymptomatic ONLY) (01/27/2020 10:45 AM CDT) SARS-COV2/RT-PC Negative Not Detected, [facility] R Negative, See [facility] external report for MEDICAL CENTER linked test SARS-COV-2 [facility]ON [facility] PERFORMING LAB [facility] Specimen Other - Nasopharyngeal wall structure (body structure) Narrative Performed At Negative result for this test determine s that SARS-CoV-2 RNA was not present in [facility] the specimen above the Limit of Detecti on (LOD). However, Negative results do [facility] not preclude SARS-CoV-2 infection and s hould not be used as the sole basis for treatment or patient management decisio ns. Negative results must be combined with clinical observations, patient his tory, and epidemiological information. A false negative result may occur if a sp ecimen is improperly collected, transported or handled. A false negat jackie result should be considered if patient's recent exposures or clinical presentation indicate that COVID-19 (SARS-CoV-2) is likely and diagnostic t ests for other causes of illness are negative. Re-testing should be consid ered in cases of suspected false negatives. The limit of detection for this assay i s 800 copies/mL. This SARS CoV-2 test is a real-time RT- PCR test intended for the qualitative detection of nucleic acid from SARS-CoV -2 in a nasopharyngeal swab specimen collected from individuals suspected of COVID-19 by their healthcare provider. This test has not been Food and Drug Ad ministration (FDA) cleared or approved. This is a modified version of an appr caroline Emergency Use Authorization (EUA) and is in the process of review by the FDA. Once authorized by the FDA, the issued EUA will be effective until the declaration that circumstances exist justifying the authorization of the robert rgency use of in vitro diagnostic tests for detection and/or diagnosis of COVID -19 is terminated under Section 564(b)(2) of the Act or the EUA is revoked under Section 564(g) of the Act. Fact Sheet for Healthcare Providers: https://www.JobSerf/sites/default/files/product/documents/Fact_Sheet_HC_Provi bwgc_Btmf_NEAG-JmO-6.pdf Fact Sheet for Healthcare Patients: https://www.[employer]/sites/default/files/product/documents/Fact_Sheet_Patients _Stnm_WEHA-JxW-6.pdf Performing Laboratory: [place] [address] Performing Organization Address City/State/Zipcode Ph one Number [address] [facility] * Urinalysis w/Microscopic + Reflex to Culture (01/27/2020 10:44 AM CDT) Color, UA Light Yellow [facility] Clarity, UA Clear [facility] Specific 1.014 1.001 - 1.035 [facility] [place] pH, UA 6.0 5.0 - 8.0 [facility] Protein, UA 30 mg/dL (A) Negative [facility] Glucose, UA Negative Negative [facility] Ketones, UA Trace (A) Negative [facility] Bilirubin, UA Negative Negative [facility] Blood, UA Negative Negative [facility] Nitrite, UA Negative Negative [facility] Leukocytes, UA Negative Negative [facility] Urobilinogen, 0.2 0.2 - 1.0 mg/dL [facility] RBC, UA <1 /HPF [facility] WBC, UA 1 /HPF [facility] Mucus Rare [facility] Specimen Source [facility] Specimen Urine Narrative Performed At Jingle Writer ID - [auto] [facility] Jingle Writer ID - [facility] Performing Organization Address City/State/Zipcode Ph one Number [facility] [address] [facility], [place] [address] MEDICAL CENTER * CBC with platelet count + automated diff (01/27/2020 10:41 AM CDT) Only the most recent of 3 results within the time period is included. WBC 4.9 3.5 - 10.5 K/L [facility] RBC 2.74 (L) 4.63 - 6.08 M/L [facility] Hemoglobin 8.5 (L) 13.7 - 17.5 GM/DL [facility] Hematocrit 26.1 (L) 40.1 - 51.0 % [facility] MCV 95.3 (H) 79.0 - 92.2 fL [facility] MCH 31.0 25.7 - 32.2 pg [facility] MCHC 32.6 32.3 - 36.5 GM/DL [facility] RDW 15.7 (H) 11.6 - 14.4 % [facility] Platelets 143 (L) 150 - 450 K/CU MM [facility] MPV 9.0 (L) 9.4 - 12.4 fL [facility] nRBC 0 0 - 0 /100 WBC [facility] % Neutros 73 % [facility] % Lymphs 11 % [facility] % Monos 11 % [facility] % Eos 4 % [facility] % Baso 1 % [facility] # Neutros 3.57 1.78 - 5.38 K/L [facility] # Lymphs 0.55 (L) 1.32 - 3.57 K/L [facility] # Monos 0.51 0.30 - 0.82 K/L [facility] # Eos 0.18 0.04 - 0.54 K/L [facility] # Baso 0.05 0.01 - 0.08 K/L [facility] Immature 0 0 - 1 % [facility] Specimen Blood Performing Organization Address City/State/Zipcode Ph one Number [facility] [address] [place], [place] [address] [address] * CT spine cervical without IV contrast (01/27/2020 10:29 AM CDT) Specimen Narrative Performed At FINAL REPORT [facility] [place]) CT Cervical spine CLINICAL HISTORY: Neck pain, initial ex am SEIZURES TECHNIQUE: Contiguous axial images of t he cervical spine with coronal and sagittal reformations to assess the alignment. This exam was performed according to the departmental dose optimization program which includes automated exposure contr ol, adjustment of the mA and/or kV according to the patient size , and/or use of an iterative reconstruction technique. COMPARISON: None FINDINGS: The vertebral body heights are preserve d without fracture or dislocation. There is no prevertebral s oft tissue swelling. There is straightening of the cervical curvature with maintained alignment. Allowing for the lack of intrathecal co ntrast, there is no critical appearing central canal stenosis. There are scattered subcentimeter lymph nodes in the neck. There is biapical emphysematous disease. IMPRESSION: No cervical fracture or dislocation. Signed: Waylon Trevino MD Report Verified Date/Time: 01/27/2020 11:49:52 Reading Location: [facility] Reading Room Procedure Note Interface, External Ris In - 01/27/2020 11:52 AM CDT FINAL REPORT CT Cervical spine CLINICAL HISTORY: Neck pain, initial exam SEIZURES TECHNIQUE: Contiguous axial images of the cervical spine with coronal and sagittal reformations to assess the alignment. This exam was performed according to the departmental dose optimization program which includes automated exposure control, adjustment of the mA and/or kV according to the patient size, and/or use of an iterative reconstruction technique. COMPARISON: None FINDINGS: The vertebral body heights are preserved without fracture or dislocation. There is no prevertebral soft tissue swelling. There is straightening of the cervical curvature with maintained alignment. Allowing for the lack of intrathecal contrast, there is no critical appearing central canal stenosis. There are scattered subcentimeter lymph nodes in the neck. There is biapical emphysematous disease. IMPRESSION: No cervical fracture or dislocation. Signed: Waylon Trevino MD Report Verified Date/Time: 01/27/2020 11:49:52 Reading Location: [facility] Radiology Reading Room Performing Organization Address City/State/Zipcode Ph one Number [employer] [facility] * CT brain without IV contrast (01/27/2020 10:29 AM CDT) Only the most recent of 3 results within the time period is included. Specimen Narrative Performed At FINAL REPORT [facility] CT Head without contrast CLINICAL HISTORY: Altered mental status SEIZURES TECHNIQUE: Contiguous axial CT images t hrough the head without contrast. This exam was performed accor ding to the departmental dose optimization program which includes aut omated exposure control, adjustment of the mA and/or kV accordin g to the patient size, and/or use of an iterative reconstruction tech nique. COMPARISON: 06/23/2019 FINDINGS: There is no CT evidence of acute infarc t or intracranial hemorrhage. The previously acute left middle cerebr al artery distribution infarct is now chronic with encephalomalacia pr imarily in the posterior division. There is periventricular and subcortical white matter hypodensity which is nonspecific but co mpatible with chronic microvascular ischemic change. There ar e atherosclerotic calcifications of the intracranial circ ulation. There is generalized parenchymal volume loss without hydroce phalus, midline shift, or apparent mass effect. There are no extr a-axial fluid collections. A left-sided craniotomy is again seen. Th e visualized paranasal sinuses are well-aerated. IMPRESSION: No CT evidence of acute infarct, hemorr zahira, or hydrocephalus. Chronic left middle cerebral artery dis tribution infarct. Signed: Waylon Trevino MD Report Verified Date/Time: 01/27/2020 11:42:33 Reading Location: [facility] Radiolo [facility] Reading Room Procedure Note Interface, External Ris In - 01/27/2020 11:44 AM CDT FINAL REPORT CT Head without contrast CLINICAL HISTORY: Altered mental status SEIZURES TECHNIQUE: Contiguous axial CT images through the head without contrast. This exam was performed according to the departmental dose optimization program which includes automated exposure control, adjustment of the mA and/or kV according to the patient size, and/or use of an iterative reconstruction technique. COMPARISON: 06/23/2019 FINDINGS: There is no CT evidence of acute infarct or intracranial hemorrhage. The previously acute left middle cerebral artery distribution infarct is now chronic with encephalomalacia primarily in the posterior division. There is periventricular and subcortical white matter hypodensity which is nonspecific but compatible with chronic microvascular ischemic change. There are atherosclerotic calcifications of the intracranial circulation. There is generalized parenchymal volume loss without hydrocephalus, midline shift, or apparent mass effect. There are no extra-axial fluid collections. A left-sided craniotomy is again seen. The visualized paranasal sinuses are well-aerated. IMPRESSION: No CT evidence of acute infarct, hemorrhage, or hydrocephalus. 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 Signed: Waylon Trevino MD Report Verified Date/Time: 01/27/2020 11:42:33 Reading Location: [facility] Radiology Reading Room Performing Organization Address City/State/Zipcode Ph one Number [facility] * EKG-SCANNED (06/30/2019 10:00 AM SAND SHOVELER) Narrative Performed At This result has an attachment that is n ot available. * UROLOGY REPORT - SCAN (06/29/2019 3:24 PM SAND SHOVELER) Narrative Performed At This result has an attachment that is n ot available. * RHYTHM STRIP - SCAN (06/29/2019 3:23 PM SAND SHOVELER) Only the most recent of 2 results within the time period is included. Narrative Performed At This result has an attachment that is n ot available. * POC-Glucose meter (06/27/2019 1:17 PM SAND SHOVELER) Only the most recent of 21 results within the time period is included. POC-Glucose 134 (H)Comment: : TESTED AT 70 - 110 mg/dL [facility] [address] [place] [id number]: Jingle Writer/Meeting Planner ID MEDICAL [facility]ENTER = [id number] for ARLENE HAGAIL Specimen Blood Performing Organization Address [facility] one [address] [facility] * Phosphorus (06/27/2019 5:10 AM SAND SHOVELER) Only the most recent of 7 results within the time period is included. Phosphorus 2.9 2.3 - 4.7 mg/dL [facility] Specimen Blood Narrative Performed At Jingle Writer ID - PAPA Collins [facility] Performing Organization Address [facility] one [address] [facility] * Magnesium (06/27/2019 5:10 AM SAND SHOVELER) Only the most recent of 9 results within the time period is included. Magnesium 2.0 1.6 - 2.6 mg/dL [facility] Specimen Blood Narrative Performed At Jingle Writer ID - PAPA L [facility] Performing Organization Address [facility] one [address] [facility] * XR abdomen / KUB 1 view (06/26/2019 9:28 PM SAND SHOVELER) Only the most recent of 3 results within the time period is included. Specimen Narrative Performed At FINAL REPORT [facility] CLINICAL HISTORY: to check [employer] placm ent TECHNIQUE: RAD, ABDOMEN/KUB, 1 VIEW AP COMPARISON: Plain radiograph the abdome n dated 06/26/2019. FINDINGS: Interval retraction of the weighted tip feeding tube with tip overlying the expected location of the first portion the duodenum. Otherwise unchanged examination the int erval. Nonspecific bowel gas pattern. Retained contrast material in the large bowel. Signed: Doug Mays MD Report Verified Date/Time: 06/26/2019 21:46:50 Procedure Note Interface, External Ris In - 06/26/2019 9:49 PM SAND SHOVELER FINAL REPORT CLINICAL HISTORY: to check [employer] placment TECHNIQUE: RAD, ABDOMEN/KUB, 1 VIEW AP COMPARISON: Plain radiograph the abdomen dated 06/26/2019. FINDINGS: Interval retraction of the weighted tip feeding tube with tip overlying the expected location of the first portion the duodenum. Otherwise unchanged examination the interval. Nonspecific bowel gas pattern. Retained contrast material in the large bowel. Signed: Doug Mays MD Report Verified Date/Time: 06/26/2019 21:46:50 Performing Organization Address City/State/Zipcode Ph one Number GE [facility] * FL esoph swallow funct with cine video (06/25/2019 11:34 AM SAND SHOVELER) Specimen Narrative Performed At FINAL REPORT GE [facility] Modified barium swallow exam with [facility] h pathology service CLINICAL HISTORY: Evaluation for aspira tion - discussed with GEOGRAPHY PROFESSOR, MBSS 06/25 IMPRESSION: Please see the speech pathology service report for details. Barium contrast of multiple consistenci es is given to the patient to swallow. Fluoroscopic observation is pe rformed during swallowing. Aspiration was observed with administra tion of thin liquid. Deep penetration was observed with administr ation of nectar thick liquid. Fluoro time: 2.1 min Number of images: 1 Signed: Dominick Holman MD Report Verified Date/Time: 06/25/2019 15:09:11 Reading Location: [address] [address] Procedure Note Interface, External Ris In - 06/25/2019 3:11 PM SAND SHOVELER FINAL REPORT Modified barium swallow exam with speech pathology service CLINICAL HISTORY: Evaluation for aspiration - discussed with GEOGRAPHY PROFESSOR, MBSS 06/25 IMPRESSION: Please see the speech pathology service report for details. Barium contrast of multiple consistencies is given to the patient to swallow. Fluoroscopic observation is performed during swallowing. Aspiration was observed with administration of thin liquid. Deep penetration was observed with administration of nectar thick liquid. Fluoro time: 2.1 min Number of images: 1 Signed: Dominick Holman MD Report Verified Date/Time: 06/25/2019 15:09:11 Reading Location: [address] [address] Performing Organization Address [facility]/[place] Ph one Number GE [facility] * TRANSFUSION SERVICE REPORT - SCAN (06/23/2019 6:01 PM SAND SHOVELER) Only the most recent of 2 results within the time period is included. Narrative Performed At This result has an attachment that is n ot available. * Lipid panel (06/23/2019 5:42 AM SAND SHOVELER) Only the most recent of 3 results within the time period is included. Triglycerides 58 mg/dL [facility] Cholesterol 110 mg/dL [facility] HDL 43 mg/dL [facility] LDL Calculated 55 mg/dL [facility] Specimen Blood Narrative Performed At Triglyceride Reference Range: [facility] Low Risk <150 [facility] Borderline 150-199 High Risk 200-499 Very High Risk >=500 Cholesterol Reference Range: Low Risk <200 Borderline 200-239 High Risk >240 HDL Cholesterol Reference Range: Low Risk >=60 High Risk <40 LDL Cholesterol Reference Range: Optimal <100 Near Optimal 100-129 Borderline 130-159 High 160-189 Very High >=190 Jingle Writer ID - [place] Performing Organization Address [facility]/[place] Ph one Number [place] [address] MEDICAL CENTER * Prepare Leuko-Red PLT (06/22/2019 11:54 PM SAND SHOVELER) Unit ABO O Pos SAFETRACE TX UNIT NUMBER [id number] SAFETRACE TX Status TX_TIMEINCHART SAFETRACE TX Blood Bank PLATELETS SAFETRACE TX Product PRODUCT CODE [id number] SAFETRACE TX Unit ABO O Pos SAFETRACE TX UNIT NUMBER [id number] SAFETRACE TX Status TX_TIMEINCHART SAFETRACE TX Blood Bank PLATELETS SAFETRACE TX Product PRODUCT CODE [id number] SAFETRACE TX Specimen Blood Performing Organization Address City/State/Zipcode Ph one Number SAFETRACE [place] * ECHOCARDIOGRAM REPORT - SCAN (06/22/2019 9:22 PM SAND SHOVELER) Narrative Performed At This result has an attachment that is n ot available. * Potassium (06/22/2019 6:24 PM SAND SHOVELER) Potassium 4.0 3.5 - 5.1 meq/L [facility] Specimen Blood Narrative Performed At Jingle Writer ID - DB [facility] 8 hours after PO replacement completed [facility] Performing Organization Address City/State/[facility] Ph one Number [place] [address] MEDICAL CENTER * 2D Echo W/Doppler(CW/PW/Color) (06/22/2019 9:23 AM SAND SHOVELER) Ejection SLE ECHO Fraction [facility] Specimen Narrative Performed At Transthoracic Echocardiography Report (TTE) [facility] ECH O HEARTLAB Demographics [facility] Patient Name CEASAR ARGUETA ate of Study 06/22/2019 BERNY Gender Male Visit Number [id number] Race Unknown Room Number 7519 Number Date of 1945 Referring Physician Age 74 year(s) Product Development Chemist Macie Blanco [facility] Interpreting Physician BISMARK Cmaarena Procedure Type of Study TTE procedure:LIMITED 2D EC HOCARDIOGRAM, 2DECHO W DOPPLER(CW/PW/COLOR) (Ro utine) Indications:Stroke . Clinical History CAD;PCIX2 07/28;NSTEMI;HTN;HLD;CVA/TIA. Contrast Medium: Definity. Height: 68 inches Weight: 90.72 kg (200 lbs) BSA: 2.04 m^2 BMI: 30.41 kg/m^2 HR: 89 bpm BP: 161/96 mmHg Summary IV saline contrast injection was negati ve for a PFO (patent foramen ovale) at rest and post Valsalva . The left ventricle is chamber size (by PSLAX dimension) is normal (male - LVIDd 4.2-5.8cm) . Mild septal hypertro phy is present. The following segment(s) appear hypokinetic: apical s eptum . The other segments contract normally. Estimated LVEF by qualitative assessment is normal (>60%) . There is minimal aortic stenosis. AoV a alvin at rest by continuity equation is in the range of 2.0 cm2. AoV area by planimtery is in the range of 2.0 cm2. Estimated peak systolic PA pressure is 30-35 mmHg . Signature Findings Left Ventricle The left rahel tricle is chamber size (by PSLAX dime nsion) is normal (male - LVIDd 4.2-5.8cm) . Mild septal hypertrophy is present. The following segment(s) appear hypokinetic: apical sept um . The other segments contract normally. Maren mated LVEF by qualitative assessment is normal (>60 %) . Left Atrium LA size is normal (16-34 ml/m2) . Right Ventricle The right ve ntricular chamber size and systolic func tion are within normal limits. Right Atrium RA size is normal. Atrial Septum IV saline c ontrast injection was negative for a PFO (pat ent foramen ovale) at rest and post Valsalva . Aortic Valve Mild AoV cu sp thickening. Mild AoV cusp calcification. Ther e is minimal aortic stenosis. AoV area at rest by continuity equation is in the rang e of 2.0 cm2. AoV area by planimtery is in the range of 2.0 cm2. Mitral Valve Mild MV jules flet thickening. Tricuspid Valve TV structure is normal. Maren mated peak systolic PA pressure is 30-35 mmHg . Pulmonic Valve Normal PV st ructure and function by limited views and Doppler. Aorta Aortic root size (Sinus of Valsalva diameter) is mild ly dilated. 3.7 cm Pericardium No signifi cant pericardial effusion is visualized. IVC/SVC/PA/PV/Pleural The estimated R A pressure by IVC dynamics 5-10mmHg . Chambers/Structures Left Atrium LA Volume: 48.69 ml LA Area: 17.86 cm^2 LA Vol. Index: 24 ml/m^2 Left Ventricle LVIDd: 4.21 cm LVEDV:79.09 ml LVIDs: 2.86 cm LVESV:23.44 ml LV Septum Diastolic: 1.36 cm LVEF 2D Cube: 68.6 % LV PW Diastolic: 1.09 cm LV FS: 32.1 % LVOT Diameter: 2.14 cm LVEF: 70.4 % Doppler/Quantitative Measurements Mitral Valve MV Peak E-Wave: 0.88 m/s MV Peak A-Wave: 0.94 m/s E/A Ratio: 0.93 Peak Gradient: 3.11 mmHg Deceleration Time: 296.1 msec MV Davi. Peak: Aortic Valve Peak Velocity: 3.02 m/s Mean Velocity: 1.9 m/s Peak Gradient: 36.39 mmHg Mean Gradient: 17.43 mmHg AV Area (continuity): 2.02 cm^2 AV VTI: 52.6 cm AV DVI: 0.56 LVOT Peak Velocity: 1.6 m/s Peak Gradient: 10.18 mmHg Mean Velocity: 1 m/s Mean Gradient: 5.02 mmHg LVOT Diameter: 2.14 cm LVOT VTI: 29.51 cm LVOT Area: 3.6 cm^2 LVOT SV:106.09 ml LVOT CO: 9.44 l/min LVOT CI: 4.63 l/min/m^2 Procedure Note Interface, External Ris In - 06/22/2019 2:49 PM SAND SHOVELER Transthoracic Echocardiography Report (TTE) Demographics Patient Name CEASAR ARGUETA Date of Study 06/22/2019 BERNY Gender Male Visit Number [id number] Race Unknown Room Number 7519 Number Date of 1945 Referring Physician Age 74 year(s) Product Development Chemist Macie Blanco RDCS Interpreting Physician BISMARK Camarena Procedure Type of Study TTE procedure:LIMITED 2D ECHOCARDIOGRAM, 2DECHO W DOPPLER(CW/PW/COLOR) (Routine) Indications:Stroke . Clinical History CAD;PCIX2 07/28;NSTEMI;HTN;HLD;CVA/TIA. Contrast Medium: Definity. Height: 68 inches Weight: 90.72 kg (200 lbs) BSA: 2.04 m^2 BMI: 30.41 kg/m^2 HR: 89 bpm BP: 161/96 mmHg Summary IV saline contrast injection was negative for a PFO (patent foramen ovale) at rest and post Valsalva . The left ventricle is chamber size (by PSLAX dimension) is normal (male - LVIDd 4.2-5.8cm) . Mild septal hypertrophy is present. The following segment(s) appear hypokinetic: apical septum . The other segments contract normally. Estimated LVEF by qualitative assessment is normal (>60%) . There is minimal aortic stenosis. AoV area at rest by continuity equation is in the range of 2.0 cm2. AoV area by planimtery is in the range of 2.0 cm2. Estimated peak systolic PA pressure is 30-35 mmHg . Signature Findings Left Ventricle The left ventricle is chamber size (by PSLAX dimension) is normal (male - LVIDd 4.2-5.8cm) . Mild septal hypertrophy is present. The following segment(s) appear hypokinetic: apical septum . The other segments contract normally. Estimated LVEF by qualitative assessment is normal (>60%) . Left Atrium LA size is normal (16-34 ml/m2) . Right Ventricle The right ventricular chamber size and systolic function are within normal limits. Right Atrium RA size is normal. Atrial Septum IV saline contrast injection was negative for a PFO (patent foramen ovale) at rest and post Valsalva . Aortic Valve Mild AoV cusp thickening. Mild AoV cusp calcification. There is minimal aortic stenosis. AoV area at rest by continuity equation is in the range of 2.0 cm2. AoV area by planimtery is in the range of 2.0 cm2. Mitral Valve Mild MV leaflet thickening. Tricuspid Valve TV structure is normal. Estimated peak systolic PA pressure is 30-35 mmHg . Pulmonic Valve Normal PV structure and function by limited views and Doppler. Aorta Aortic root size (Sinus of Valsalva diameter) is mildly dilated. 3.7 cm Pericardium No significant pericardial effusion is visualized. IVC/SVC/PA/PV/Pleural The estimated RA pressure by IVC dynamics 5-10mmHg . Chambers/Structures Left Atrium LA Volume: 48.69 ml LA Area: 17.86 cm^2 LA Vol. Index: 24 ml/m^2 Left Ventricle LVIDd: 4.21 cm LVEDV:79.09 ml LVIDs: 2.86 cm LVESV:23.44 ml LV Septum Diastolic: 1.36 cm LVEF 2D Cube: 68.6 % LV PW Diastolic: 1.09 cm LV FS: 32.1 % LVOT Diameter: 2.14 cm LVEF: 70.4 % Doppler/Quantitative Measurements Mitral Valve MV Peak E-Wave: 0.88 m/s MV Peak A-Wave: 0.94 m/s E/A Ratio: 0.93 Peak Gradient: 3.11 mmHg Deceleration Time: 296.1 msec MV Davi. Peak: Aortic Valve Peak Velocity: 3.02 m/s Mean Velocity: 1.9 m/s Peak Gradient: 36.39 mmHg Mean Gradient: 17.43 mmHg AV Area (continuity): 2.02 cm^2 AV VTI: 52.6 cm AV DVI: 0.56 LVOT Peak Velocity: 1.6 m/s Peak Gradient: 10.18 mmHg Mean Velocity: 1 m/s Mean Gradient: 5.02 mmHg LVOT Diameter: 2.14 cm LVOT VTI: 29.51 cm LVOT Area: 3.6 cm^2 LVOT SV:106.09 ml LVOT CO: 9.44 l/min LVOT CI: 4.63 l/min/m^2 Performing Organization Address City/State/Zipcode Ph one Number [facility]ART[facility] MKCKESSON CPACS * Transfuse Leuko-Red PLT (06/21/2019 12:23 PM SAND SHOVELER) Only the most recent of 2 results within the time period is included. * Tissue Exam (06/21/2019 10:56 AM SAND SHOVELER) Case Report Surgical Pathology Report [facility] Case: [id number] [facility] Authorizing Provider: Carlos Mohan MD Collected: 06/21/2019 1056 Ordering Location: [place] [address] ICU Received: 06/21/2019 1103 Pathologist: Kelton Brewer MD Specimen: Soft Tissue, Other, left temporal hemorrhage DIAGNOSIS BRAIN, LEFT TEMPORAL, [facility] [place] Electro nically CRANIOTOMY AND EVACUATION: [facility] signed by Kelton Brewer - BLOOD CLOT [facility] MD Celso on -SMALL FRAGMENTS OF 06/29/2019 at 6:37 LEPTOMENINGES PM Signing Pathologist Direct Phone Line: [phone] CPT Code(s) 38463 [facility] CLINICAL Pre and postop diagnosis: LISET ALVAREZ HISTORY Brain bleed [facility] SPECIMEN SOURCE Left temporal hemorrhage [facility] Received fresh labeled with [facility] DANIELA KRAFT DESCRIPTION the patient's name, accession [facility] number and "left temporal MEDICAL CENTER hemorrhage" is a 4 x 3 x 1.5 cm aggregate of multiple, irregular clotted blood fragments. The specimen is serially sectioned and no gross lesions are identified. The specimen is entirely submitted in A1-A5. CG/pl MICROSCOPIC A. Performed. [facility] Specimen Tissue - Soft tissue (navigational concept) Performing Organization Address City/State/Zipcode Ph one Number [facility] [address] [place] [address] MEDICAL CENTER * POCT-P2Y12 PLATELET AGGREGATION (06/21/2019 8:00 AM SAND SHOVELER) POC-P2Y12 Plt 119 [facility]U [facility] Specimen Blood - Entire left upper arm (body structure) Narrative Performed At RANGE INFORMATION: PRU reference range is 194-418. Post Drug Results: Lower PRU [facility] levels are associated with expected ant iplatelet effect. Values may be below the [facility] stated reference range above. The post- drug PRU values reported in the [employer]Now P2Y12 package insert are [id number]. Performing Organization Address City/[facility] Ph one Number [address] [address] [facility] * Hemoglobin A1c (06/21/2019 7:19 AM SAND SHOVELER) Hemoglobin A1C 6.8 (H) 4.3 - 6.1 % [facility] Specimen Blood Performing Organization Address [facility] Ph one Number [address] [facility] * ABORH, manual (06/21/2019 2:16 AM SAND SHOVELER) ABO Grouping A [facility] Rh Factor POS [facility] Specimen Blood Performing Organization Address [facility]/[place] Ph one Number [address] [address] [facility] * Hepatic function panel (06/21/2019 1:43 AM SAND SHOVELER) Protein, Total 7.1Comment: Specimen slightly 6.0 - 8.3 gm/dL [facility] hemformerly [facility] Albumin 3.7Comment: Specimen slightly 3.5 - 5.0 g/dL [facility] hemolyzed [facility] Total Bilirubin 0.4Comment: Specimen slightly 0.2 - 1.2 mg/dL [facility] Bilirubin, 0.2Comment: Specimen slightly 0.1 - 0.5 mg/dL [facility] Alkaline 82 40 - 150 U/L [facility] Phosphatase [facility] AST 36 (H)Comment: Specimen 5 - 34 U/L [facility] ALT 54Comment: Specimen slightly 6 - 55 U/L C HI [facility] hemolyzed [facility] Specimen Blood Narrative Performed At Jingle Writer ID - GRANT Elvis [facility] Performing Organization Address City/[facility]/[place] Ph one Number [facility] [address] [place], [place] [address] [facility] * Type and screen, automated (06/21/2019 1:17 AM SAND SHOVELER) ABO/RH A POSITIVE [facility] Ab Scrn NEGATIVE [facility] Specimen Blood Performing Organization Address [facility]/[place] Ph one Haresh [address] [address] [phone] [facility] * CTA carotid (06/20/2019 11:32 PM SAND SHOVELER) Only the most recent of 2 results within the time period is included. Specimen Narrative Performed At FINAL REPORT [facility] [facility] EXAM: CT, CTANGIO BRAIN, CT, CAROTID, ANGIO CLINICAL INDICATION: Intracranial hemor rhage suspected. Worsening mental status. TECHNIQUE: Helical CT of the head witho ut IV contrast. Postcontrast CTA of the head and CTA of the neck wit h IV contrast. Multiplanar reconstructed images. 3D reconstruction s with MIP images were performed. This exam was performed acco rding to our departmental dose-optimization program, which includ es automated exposure control, adjustment of the mA and/or kV accordin g to patient size and/or use of iterative reconstruction technique. COMPARISON: CTA from four hours prior. FINDINGS: CT HEAD: Parenchyma: There is new acute intrapar enchymal hemorrhage centered at the posterior left temporal lobe con sistent with hemorrhagic conversion of the posterior left MCA te rritory infarction with measurements of approximately 7.5 x 4.1 x 5.2 cm (80 cc). There is associated effacement of the left later al ventricle with trace 0.2 shift of midline structures from left t o right increased compared to prior. No evidence of intraventricular extension of hemorrhage. No evidence of active extravasation when c orrelated to CTA. Extra-axial Collection: None Ventricular System: No hydrocephalus. Paranasal Sinuses: Predominantly prashant r Tympanomastoid Cavities: Normal Other: Atherosclerotic intracranial c alcifications are present. CTA HEAD: Anterior Circulation: Right intracranial internal carotid art cecilia (ICA): Moderate atherosclerotic narrowing of the cavern ous and supraclinoid segments. Right anterior cerebral artery (HELENA): N ormal Right middle cerebral artery (MCA): Nor mal Left intracranial internal carotid magdalena ry (ICA): Mild atherosclerotic narrowing of the cavernous and supracli noid segments. Left anterior cerebral artery (HELENA): No rmal Left middle cerebral artery (MCA): Norm al Anterior communicating artery (AComm): Present Posterior communicating arteries (PComm ): Left PComm present. Right PComm not well visualized. Posterior Circulation: Right posterior cerebral artery (TRUCKING MANAGER): Normal Left posterior cerebral artery (TRUCKING MANAGER): H ypoplastic P1 segment with the remainder of the left TRUCKING MANAGER supplied by t he left posterior communicating artery. Right vertebral artery (VA): Normal Left vertebral artery (VA): Normal Basilar artery (BA): Normal Other: Normal Dural Venous Sinuses: Normal CTA NECK: Aortic arch and proximal great vessels: Atherosclerotic changes without significant narrowing. Right carotid arterial system: Mild (<5 0%) internal carotid artery narrowing from atherosclerosis of the b ifurcation. Left carotid arterial system: Mild (<50 %) internal carotid artery narrowing within the ICA stent secondar y to posterior mural thrombus not changed compared to recent prior. Right vertebral artery: Severe atherosc lerotic narrowing at the origin with patency distally. Left vertebral artery: Severe atheroscl erotic narrowing at the origin Where applicable, evaluation of interna l carotid artery (ICA) stenosis was performed using NASCET-lik e criteria, where the site of greatest stenosis is compared to the di ameter of the ICA distal to the stenosis at a point where the ICA w alls become parallel. Neck Soft Tissues: Unremarkable Osseous Structures: No acute osseous abnormality Included Lung Apices: Centrilobular emp hysema. IMPRESSION: 1. 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 Trace shift of midline stru ctures from left to right increased compared to prior. 2. No short-term interval change on CTA of the head and neck. No acute interval vascular abnormality. Critical findings were relayed to the n eurology resident at 11:36 PM 06/20/2019. Signed: Scot Sotomayor MD Report Verified Date/Time: 06/21/2019 00:01:37 Procedure Note Interface, External Ris In - 06/21/2019 12:03 AM SAND SHOVELER FINAL REPORT EXAM: CT, CTANGIO BRAIN, CT, CAROTID, ANGIO CLINICAL INDICATION: Intracranial hemorrhage suspected. Worsening mental status. TECHNIQUE: Helical CT of the head without IV contrast. Postcontrast CTA of the head and CTA of the neck with IV contrast. Multiplanar reconstructed images. 3D reconstructions with MIP images were performed. This exam was performed according to our departmental dose-optimization program, which includes automated exposure control, adjustment of the mA and/or kV according to patient size and/or use of iterative reconstruction technique. COMPARISON: CTA from four hours prior. FINDINGS: CT HEAD: Parenchyma: There is new acute intraparenchymal hemorrhage centered at the posterior left temporal lobe consistent with hemorrhagic conversion of the posterior left MCA territory infarction with measurements of approximately 7.5 x 4.1 x 5.2 cm (80 cc). There is associated effacement of the left lateral ventricle with trace 0.2 shift of midline structures from left to right increased compared to prior. No evidence of intraventricular extension of hemorrhage. No evidence of active extravasation when correlated to CTA. Extra-axial Collection: None Ventricular System: No hydrocephalus. Paranasal Sinuses: Predominantly clear Tympanomastoid Cavities: Normal Other: Atherosclerotic intracranial calcifications are present. CTA HEAD: Anterior Circulation: Right intracranial internal carotid artery (ICA): Moderate atherosclerotic narrowing of the cavernous and supraclinoid segments. Right anterior cerebral artery (HELENA): Normal Right middle cerebral artery (MCA): Normal Left intracranial internal carotid artery (ICA): Mild atherosclerotic narrowing of the cavernous and supraclinoid segments. Left anterior cerebral artery (HELENA): Normal Left middle cerebral artery (MCA): Normal Anterior communicating artery (AComm): Present Posterior communicating arteries (PComm): Left PComm present. Right PComm not well visualized. Posterior Circulation: Right posterior cerebral artery (TRUCKING MANAGER): Normal Left posterior cerebral artery (TRUCKING MANAGER): Hypoplastic P1 segment with the remainder of the left TRUCKING MANAGER supplied by the left posterior communicating artery. Right vertebral artery (VA): Normal Left vertebral artery (VA): Normal Basilar artery (BA): Normal Other: Normal Dural Venous Sinuses: Normal CTA NECK: Aortic arch and proximal great vessels: Atherosclerotic changes without significant narrowing. Right carotid arterial system: Mild (<50%) internal carotid artery narrowing from atherosclerosis of the bifurcation. Left carotid arterial system: Mild (<50%) internal carotid artery narrowing within the ICA stent secondary to posterior mural thrombus not changed compared to recent prior. Right vertebral artery: Severe atherosclerotic narrowing at the origin with patency distally. Left vertebral artery: Severe atherosclerotic narrowing at the origin Where applicable, evaluation of internal carotid artery (ICA) stenosis was performed using NASCET-like criteria, where the site of greatest stenosis is compared to the diameter of the ICA distal to the stenosis at a point where the ICA schmid become parallel. Neck Soft Tissues: Unremarkable Osseous Structures: No acute osseous abnormality Included Lung Apices: Centrilobular emphysema. IMPRESSION: 1. Left MCA territory infarction with in terval large hemorrhagic conversion. Trace shift of midline structures from left to right increased compared to prior. 2. No short-term interval change on CTA of the head and neck. No acute interval vascular abnormality. Critical findings were relayed to the neurology resident at 11:36 PM 06/20/2019. Signed: Scot Sotomayor MD Report Verified Date/Time: 06/21/2019 00:01:37 Performing Organization Address City/State/Zipcode Ph one Number [employer] * CTA brain (06/20/2019 11:32 PM SAND SHOVELER) Only the most recent of 2 results within the time period is included. Specimen Narrative Performed At FINAL REPORT [facility] [facility] EXAM: CT, CTANGIO BRAIN, CT, CAROTID, ANGIO CLINICAL INDICATION: Intracranial hemor rhage suspected. Worsening mental status. TECHNIQUE: Helical CT of the head witho ut IV contrast. Postcontrast CTA of the head and CTA of the neck wit h IV contrast. Multiplanar reconstructed images. 3D reconstruction s with MIP images were performed. This exam was performed acco rding to our departmental dose-optimization program, which includ es automated exposure control, adjustment of the mA and/or kV accordin g to patient size and/or use of iterative reconstruction technique. COMPARISON: CTA from four hours prior. FINDINGS: CT HEAD: Parenchyma: There is new acute intrapar enchymal hemorrhage centered at the posterior left temporal lobe con sistent with hemorrhagic conversion of the posterior left MCA te rritory infarction with measurements of approximately 7.5 x 4.1 x 5.2 cm (80 cc). There is associated effacement of the left later al ventricle with trace 0.2 shift of midline structures from left t o right increased compared to prior. No evidence of intraventricular extension of hemorrhage. No evidence of active extravasation when c orrelated to CTA. Extra-axial Collection: None Ventricular System: No hydrocephalus. Paranasal Sinuses: Predominantly prashant r Tympanomastoid Cavities: Normal Other: Atherosclerotic intracranial c alcifications are present. CTA HEAD: Anterior Circulation: Right intracranial internal carotid art cecilia (ICA): Moderate atherosclerotic narrowing of the cavern ous and supraclinoid segments. Right anterior cerebral artery (HELENA): N ormal Right middle cerebral artery (MCA): Nor mal Left intracranial internal carotid magdalena ry (ICA): Mild atherosclerotic narrowing of the cavernous and supracli noid segments. Left anterior cerebral artery (HELENA): No rmal Left middle cerebral artery (MCA): Norm al Anterior communicating artery (AComm): Present Posterior communicating arteries (PComm ): Left PComm present. Right PComm not well visualized. Posterior Circulation: Right posterior cerebral artery (TRUCKING MANAGER): Normal Left posterior cerebral artery (TRUCKING MANAGER): H ypoplastic P1 segment with the remainder of the left TRUCKING MANAGER supplied by t he left posterior communicating artery. Right vertebral artery (VA): Normal Left vertebral artery (VA): Normal Basilar artery (BA): Normal Other: Normal Dural Venous Sinuses: Normal CTA NECK: Aortic arch and proximal great vessels: Atherosclerotic changes without significant narrowing. Right carotid arterial system: Mild (<5 0%) internal carotid artery narrowing from atherosclerosis of the b ifurcation. Left carotid arterial system: Mild (<50 %) internal carotid artery narrowing within the ICA stent secondar y to posterior mural thrombus not changed compared to recent prior. Right vertebral artery: Severe atherosc lerotic narrowing at the origin with patency distally. Left vertebral artery: Severe atheroscl erotic narrowing at the origin Where applicable, evaluation of interna l carotid artery (ICA) stenosis was performed using NASCET-lik e criteria, where the site of greatest stenosis is compared to the di ameter of the ICA distal to the stenosis at a point where the ICA w alls become parallel. Neck Soft Tissues: Unremarkable Osseous Structures: No acute osseous abnormality Included Lung Apices: Centrilobular emp hysema. IMPRESSION: 1. 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 Trace shift of midline stru ctures from left to right increased compared to prior. 2. No short-term interval change on CTA of the head and neck. No acute interval vascular abnormality. Critical findings were relayed to the n eurology resident at 11:36 PM 06/20/2019. Signed: Scot Sotomayor MD Report Verified Date/Time: 06/21/2019 00:01:37 Procedure Note Interface, External Ris In - 06/21/2019 12:03 AM SAND SHOVELER FINAL REPORT EXAM: CT, CTANGIO BRAIN, CT, CAROTID, ANGIO CLINICAL INDICATION: Intracranial hemorrhage suspected. Worsening mental status. TECHNIQUE: Helical CT of the head without IV contrast. Postcontrast CTA of the head and CTA of the neck with IV contrast. Multiplanar reconstructed images. 3D reconstructions with MIP images were performed. This exam was performed according to our departmental dose-optimization program, which includes automated exposure control, adjustment of the mA and/or kV according to patient size and/or use of iterative reconstruction technique. COMPARISON: CTA from four hours prior. FINDINGS: CT HEAD: Parenchyma: There is new acute intraparenchymal hemorrhage centered at the posterior left temporal lobe consistent with hemorrhagic conversion of the posterior left MCA territory infarction with measurements of approximately 7.5 x 4.1 x 5.2 cm (80 cc). There is associated effacement of the left lateral ventricle with trace 0.2 shift of midline structures from left to right increased compared to prior. No evidence of intraventricular extension of hemorrhage. No evidence of active extravasation when correlated to CTA. Extra-axial Collection: None Ventricular System: No hydrocephalus. Paranasal Sinuses: Predominantly clear Tympanomastoid Cavities: Normal Other: Atherosclerotic intracranial calcifications are present. CTA HEAD: Anterior Circulation: Right intracranial internal carotid artery (ICA): Moderate atherosclerotic narrowing of the cavernous and supraclinoid segments. Right anterior cerebral artery (HELENA): Normal Right middle cerebral artery (MCA): Normal Left intracranial internal carotid artery (ICA): Mild atherosclerotic narrowing of the cavernous and supraclinoid segments. Left anterior cerebral artery (HELENA): Normal Left middle cerebral artery (MCA): Normal Anterior communicating artery (AComm): Present Posterior communicating arteries (PComm): Left PComm present. Right PComm not well visualized. Posterior Circulation: Right posterior cerebral artery (TRUCKING MANAGER): Normal Left posterior cerebral artery (TRUCKING MANAGER): Hypoplastic P1 segment with the remainder of the left TRUCKING MANAGER supplied by the left posterior communicating artery. Right vertebral artery (VA): Normal Left vertebral artery (VA): Normal Basilar artery (BA): Normal Other: Normal Dural Venous Sinuses: Normal CTA NECK: Aortic arch and proximal great vessels: Atherosclerotic changes without significant narrowing. Right carotid arterial system: Mild (<50%) internal carotid artery narrowing from atherosclerosis of the bifurcation. Left carotid arterial system: Mild (<50%) internal carotid artery narrowing within the ICA stent secondary to posterior mural thrombus not changed compared to recent prior. Right vertebral artery: Severe atherosclerotic narrowing at the origin with patency distally. Left vertebral artery: Severe atherosclerotic narrowing at the origin Where applicable, evaluation of internal carotid artery (ICA) stenosis was performed using NASCET-like criteria, where the site of greatest stenosis is compared to the diameter of the ICA distal to the stenosis at a point where the ICA schmid become parallel. Neck Soft Tissues: Unremarkable Osseous Structures: No acute osseous abnormality Included Lung Apices: Centrilobular emphysema. IMPRESSION: 1. Left MCA territory infarction with in terval large hemorrhagic conversion. Trace shift of midline structures from left to right increased compared to prior. 2. No short-term interval change on CTA of the head and neck. No acute interval vascular abnormality. Critical findings were relayed to the neurology resident at 11:36 PM 06/20/2019. Signed: Scot Sotomayor MD Report Verified Date/Time: 06/21/2019 00:01:37 Performing Organization Address City/State/Zipcode Ph one Number [facility] * MR brain without IV contrast (06/20/2019 10:24 PM SAND SHOVELER) Specimen Narrative Performed At FINAL REPORT [facility] EXAM: MR, BRAIN, WITHOUT CONTRAST CLINICAL INDICATION: TIA. Neurologic deficit. TECHNIQUE: Sagittal and coronal T1-w an d axial T2-FLAIR, GRE, fat-saturated T2-w, and diffusion-w doc ges of the brain with ADC maps. COMPARISON: None. FINDINGS: Parenchyma: There is a late acute to cheney bacute infarction with mild restricted diffusion in the left superi or temporal gyrus of the posterior left MCA territory (putative Wernicke territory). Associated T2/FLAIR signal. Petechial h emorrhage is present. Mild associated edema and mass effect withou t shift of midline structures. Scattered foci of T2 hyperintensity are present in the cerebral white matter that are nonspecific but compati ble with mild chronic microvascular ischemic changes. Extra-axial Collection: FLAIR nonsupp ression and the sulci adjacent to the infarction. Ventricular System: No hydrocephalus Major Intracranial Flow Voids: Normal Osseous Structures: Expected marrow s ignal. Included Orbits: Prior bilateral lens s urgery Paranasal Sinuses: Predominantly prashant r Tympanomastoid Cavities: Normal IMPRESSION: Late acute to subacute infarction in th e left superior temporal gyrus with petechial hemorrhage. Adjacent sul ci with FLAIR nonsuppression suggestive of either venous congestion or small subarachnoid hemorrhage. Background of mild chronic white matter ischemic changes. Signed: Scot Sotomayor MD Report Verified Date/Time: 06/20/2019 22:53:06 Procedure Note Interface, External Ris In - 06/20/2019 10:56 PM SAND SHOVELER FINAL REPORT EXAM: MR, BRAIN, WITHOUT CONTRAST CLINICAL INDICATION: TIA. Neurologic deficit. TECHNIQUE: Sagittal and coronal T1-w and axial T2-FLAIR, GRE, fat-saturated T2-w, and diffusion-w images of the brain with ADC maps. COMPARISON: None. FINDINGS: Parenchyma: There is a late acute to subacute infarction with mild restricted diffusion in the left superior temporal gyrus of the posterior left MCA territory (putative Wernicke territory). Associated T2/FLAIR signal. Petechial hemorrhage is present. Mild associated edema and mass effect without shift of midline structures. Scattered foci of T2 hyperintensity are present in the cerebral white matter that are nonspecific but compatible with mild chronic microvascular ischemic changes. Extra-axial Collection: FLAIR nonsuppression and the sulci adjacent to the infarction. Ventricular System: No hydrocephalus Major Intracranial Flow Voids: Normal Osseous Structures: Expected marrow signal. 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 Adjacent sulci with FLAIR nonsuppression suggestive of either venous congestion or small subarachnoid hemorrhage. Background of mild chronic white matter ischemic changes. Signed: Scot Sotomayor MD Report Verified Date/Time: 06/20/2019 22:53:06 Performing Organization Address [facility] one Number RIS * PT/PTT (06/20/2019 6:27 PM SAND SHOVELER) Protime 13.3 11.9 - 14.2 seconds [facility] INR 1.0 <=5.9 [facility] PTT 27.6 22.5 - 36.0 seconds [facility] Specimen Blood Narrative Performed At Effective 11/04/2018: PT Reference Range Change [facility] New: 11.9-14.2 Previous: 11.7-14.7 [facility] [place] [address] RECOMMENDED COUMADIN/WARFARIN INR THERA PY RANGES STANDARD DOSE: 2.0-3.0 Includes: PROP HYLAXIS for venous thrombosis, systemic embolization; TREATMENT for venous thro mbosis and/or pulmonary embolus. HIGH RISK: Target INR is 2.5-3.5 for pa tients wiht mechanical heart valves. Performing Organization Address [facility] one Number [place] [phone] * B-type Natriuretic Factor (BNP) (06/20/2019 6:27 PM SAND SHOVELER) BNP 50 0 - 100 pg/mL [facility] Specimen Blood Narrative Performed At Jingle Writer ID - RIANNA Medina [facility] Performing Organization Address [facility] one Number [place] [phone] [place] [address] * CT brain/stroke protocol (06/20/2019 6:14 PM SAND SHOVELER) Specimen Narrative Performed At FINAL REPORT GE RIS CT, BRAIN/STROKE PROTOCOL CLINICAL INDICATION: Neuro deficit(s) , subacute r/o cva COMPARISON: None TECHNIQUE: Noncontrast axial CT imagi ng of the brain and skull. DOSE REDUCTION: Dose modulation, iterat jackie reconstruction, and/or weight-based adjustment of the mA/kV wa s utilized to reduce the radiation dose to as low as reasonably achievable. FINDINGS: No intracranial hemorrhage, midline anthony ft or mass effect. Midline structures are normally developed. Mild chronic microvascular ischemic changes of the periventricular and subcortical white matter are present. No hydrocephalus. Orbits are within normal limits. No obstructive paranasal sinus disease. IMPRESSION: No acute intracranial findings Findings discussed with ED staff by Dr. Sharma If there is persistent clinical concern for intracranial pathology, MR examination is recommended for furth er characterization. Signed: Evette Sharma MD Report Verified Date/Time: 06/20/2019 18:17:13 Reading Location: [facility] C013 Neuro Re ading Room Procedure Note Interface, External Ris In - 06/20/2019 6:19 PM SAND SHOVELER FINAL REPORT CT, BRAIN/STROKE PROTOCOL CLINICAL INDICATION: Neuro deficit(s), subacute r/o cva COMPARISON: None TECHNIQUE: Noncontrast axial CT imaging of the brain and skull. DOSE REDUCTION: Dose modulation, iterative reconstruction, and/or weight-based adjustment of the mA/kV was utilized to reduce the radiation dose to as low as reasonably achievable. FINDINGS: No intracranial hemorrhage, midline shift or mass effect. Midline structures are normally developed. Mild chronic microvascular ischemic changes of the periventricular and subcortical white matter are present. No hydrocephalus. Orbits are within normal limits. No obstructive paranasal sinus disease. IMPRESSION: No acute intracranial findings Findings discussed with ED staff by Dr. Sharma If there is persistent clinical concern for intracranial pathology, MR examination is recommended for further characterization. Signed: Evette Sharma MD Report Verified Date/Time: 06/20/2019 18:17:13 Reading Location: [facility] B1 C013V Neuro Reading Room Performing Organization Address City/State/Zipcode Ph one Number [facility] RIS * ECG 12 lead (06/20/2019 6:06 PM SAND SHOVELER) Specimen Narrative Performed At Ventricular Rate 67 BPM GE MUSE Atrial Rate 67 BPM P-R Interval 178 ms QRS Duration 88 ms Q-T Interval 370 ms QTC Calculation(Bazett) 390 ms P [place] 36 degrees R [place] 9 degrees T [place] 22 degrees Normal sinus rhythm Inferior infarct (cited on or before ) Cannot rule out Anterior infarct , age undetermined Abnormal ECG When compared with ECG of 10-JUL-2018 1 8:05, Nonspecific T wave abnormality now evid ent in Inferior leads QT has shortened Confirmed by MD ETHEL, PEE ([id number] ) on 06/22/2019 6:48:24 AM Procedure Note Interface, External Ris In - 06/22/2019 6:48 AM SAND SHOVELER Ventricular Rate 67 BPM Atrial Rate 67 BPM P-R Interval 178 ms QRS Duration 88 ms Q-T Interval 370 ms QTC Calculation(Bazett) 390 ms P [place] 36 degrees R [place] 9 degrees T [place] 22 degrees Normal sinus rhythm Inferior infarct (cited on or before 17-OCT-2005) Cannot rule out Anterior infarct , age undetermined Abnormal ECG When compared with ECG of 10-JUL-2018 18:05, Nonspecific T wave abnormality now evident in Inferior leads QT has shortened Confirmed by MD ETHEL, PEE ([id number]) on 06/22/2019 6:48:24 AM Performing Organization Address City/State/Zipcode Ph one Number GE DAT after 04/16/2019 Insurance Type Payer Benefit Subscriber ID Effective Phone Address Plan / Dates Group Medicare MEDICARE MEDICARE A [id number] 2011- B Present [facility] SUPPLEMENT/INDIVIDUAL MUTUAL OF [id number] 2012-P MARGARET rose CDC REVIEW CDC REVIEW [id number] 2020- [place] [address] [phone] (Home) [place] [address] Advance Directives For more information, please contact: [phone] Date Inactivated Comments Code Status Date Activated 06/27/2019 10:13 PM Full Code 06/21/2019 12:24 AM This code status was determined by: Spouse 06/21/2019 12:22 AM Full Code 06/20/2019 9:04 PM This code status was determined by: Patient 06/20/2019 6:02 PM Full Code 07/15/2018 11:51 AM This code status was determined by: Patient 07/15/2018 11:49 AM Full Code 07/10/2018 6:56 PM This code status was determined by: Patient 06/30/2013 6:12 PM All possible means of suppor t including;cardiac massage, mechanical ventilation, and defibrillation will be used to support life. Code ONE 06/30/2013 6:55 AM
--- OUTSIDE RECORDS SUMMARY | 2020-04-16 15:10 | XMS REPORT | Continuity of Care Document ---
Author Author [facility] t Organization [facility] Address [address] [place] [address] Phone Unavailable Care Team Providers Care Space Officer Name Role Phone Asked, Pcp No PCP Unavailable KIRTI BIRD Attphys Unavailable Fiona SOFIA, Kirti Attphys Tony SOFIA, Darian Resendiz Attphys CEDRIC BLEVINS Attphys Unavailable Kaden SOFIA, Ruel Attphys LOWELL SRINIVASAN Attphys Unavailable Craig SOFIA, Lowell Harris Attphys Rob SOFIA, Shirley Noriega Attphys Joe SOFIA, Berny Bear Attphys Jennifer SOFIA, Lynn Fox Attphys Riya SOFIA, Nick Chou Attphys Ирина SOFIA, [place] Attphys [phone] Marques SOFIA, Neel Gonzalez Attphys CLIFTON SEGURA Attphys Unavailable Darian MALDONADO Admphys Unavailable SHIRLEY RIVAS Admphys Unavailable LISANDRA TARANGO Admphys Unavailable Payers Payer Name Policy Type Policy Number Effective Date Expiration Date S david MEDICAREMEDICARE A [id number] 2010-PresentMedicare [id number] 2011 00:00:00 [facility]PPLE[facility]/INDIVIDUALMUTUAL OF [id number] 2012-Pre sentMedigap [id number] 2012 00:00:00 [facility] REVIEWCDC [id number] [id number] 2020 00:00:00 [facility] MEDICAREMEDICARE PART A AND [id number] 2010-PresentHOU [place], [place]Med[place] [id number] 2011 00:00:00 Javier Oliver MUTUAL OF OMAHAMUTUAL OF [id number] 2012-PresentCommercia l [id number] 2012 00:00:00 Javier Coxist Problems Condition Name Condition Details Condition Category Status Onset Date Resolution Date Last Treatment Date Treating Clinician Comments Source Seizure Seizure Disease Active 2020-01-27 00:00:00 [facility] Left acute arterial ischemic stroke, MCA (middle cereb ral artery) Left acute arterial ischemic stroke, MCA (middle cerebral artery) Disease Activ e 2019-06-21 00:00:00 [facility] Hemorrhagic stroke Hemorrhagic stroke Disease Active 2019-06-21 00:00:0 0 [facility] Cerebral edema Cerebral edema Disease Active 2019-06-21 00:00:00 [facility] Midline shift of brain due to hematoma Midline shift of brai n due to hematoma Disease Active 2019-06-21 00:00:00 [facility] Encephalopathy Encephalopathy Disease Active 2019-06-21 00:00:00 [facility] Bilateral carotid artery disease Bilateral carotid artery diseas e Disease Active 2019-06-21 00:00:00 [facility] CAD (coronary artery disease) CAD (coronary artery disease) Disease Active 2019-06-21 00:00:00 [facility] HTN (hypertension) HTN (hypertension) Disease Active 2019-06-21 00:00:0 0 [facility] Acute respiratory failure Acute respiratory failure Disease Ac tive 2019-06-21 00:00:00 [facility] TIA (transient ischemic attack) TIA (transient ischemic attack) Dis ease Active 2019-06-20 00:00:00 [facility] Aphasia Aphasia Disease Active 2019-06-20 00:00:00 [facility] Chest pain, unspecified type Chest pain, unspecified type Disease Active 2018-07-10 00:00:00 [facility] NSTEMI (non-ST elevated myocardial infarction) NSTEMI (non-ST elevated myocardial infarction) Disease Active 2018-07-10 00:00:00 [facility] CAD S/P percutaneous coronary angioplasty CAD S/P perc utaneous coronary angioplasty Disease Active 2013-06-30 00:00:00 [facility] Allergies, Adverse Reactions, Alerts Allergy Name Allergy Type Status Severity Reaction(s) Onset Date Inacti ve Date Treating Clinician Comments Source No Known Allergies DA Active U 2019-10-04 00:00:00 [facility] Clopidogrel Propensity to adverse reactions Active 2019 00:00:00 [facility] No Known Contrast Allergies DA Active U 2001-01-26 00:00: 00 [facility] No Known Drug Allergies DA Active U 2001-01-26 00:00:00 [facility] No Known Food Allergies DA Active U 2001-01-26 00:00:00 [facility] No Known Other Allergies DA Active U 2001-01-26 00:00:00 [facility] Family History Family Member Diagnosis Comments Start Date Stop Date Source Natural father Coronary artery disease [facility] Natural mother Deep vein thrombosis [facility] Social History Social Habit Start Date Stop Date Quantity Comments Source Sex Assigned At [facility] Tobacco use and exposure 2020-01-27 00:00:00 2020-01-27 00:00:00 Chuy kimball [facility] Alcohol intake 2020-01-27 00:00:00 2020-01-27 00:00:00 Current non-drinker of alcohol (finding) [facility] Humerae blaire History of tobacco use 1977-06-30 00:00:00 Current smoker [facility] Smoking Status Start Date Stop Date Source Former smoker 2020-01-27 00:00:00 2020-01-27 00:00:00 [facility] Medications Ordered Medication Name Filled Medication Name Start Date Stop Da te Current Medication? Ordering Clinician Indication Dosage Frequency Signature (SIG) Comments Components Source phenytoin (DILANTIN) 200 MG ER capsule 2020-01-09 3 00:00:00 2021-01-29 23:59:00 Yes 200mg Q.5D Take 1 capsule (200 mg total) by mouth 2 (two) times daily No more refills through my office.. [facility] ALLOPURINOL ORAL 2020-01-29 16:54:26 Yes 3 00mg QD Take 300 mg by mouth daily . [facility] atorvastatin (LIPITOR) 80 MG tablet 2020-01-29 16:54:26 Yes 80mg QD Take 80 mg by mouth daily. [facility] alfuzosin (UROXATRAL) 10 mg 24 hr tablet 2020-01 00:00:00 2021-01-28 23:59:00 Yes 10mg Take 1 tablet (10 mg total) by mouth daily with dinner You already have this at home. [facility] amantadine HCL (SYMMETREL) 100 mg capsule 01-28 00:00:00 2021-01-28 23:59:00 Yes 100mg QD Take 1 capsule (100 mg total) by mouth daily You ALready have this at home. [facility] amantadine HCL (SYMMETREL) 100 mg capsule 01-28 00:00:00 2020-01-29 00:00:00 No 100mg QD Take 1 capsule (100 mg total) b y mouth daily. [facility] omega-3 fatty acids-vitamin E (FISH OIL) 1,000 mg Cap 2020-01-28 12:01:01 2020-01-28 00:00:00 No QD Take by mouth daily. [facility] losartan (COZAAR) 100 MG tablet 2020-01-28 12:01: 00:00:00 No 100mg QD Take 100 mg by mouth daily. [facility] lactulose (CHRONULAC) 20 gram/30 mL solution 2020-01-28 00:00:00 Yes 10g Take 15 mLs (10 g total) by mouth 3 (three) times viktoria y as needed. [facility] busPIRone (BUSPAR) 10 MG tablet 2020-01-28 00:00:00 23:59:00 Yes 10mg Q.5D Take 1 tablet (10 mg total) by mouth 2 (two) ti mes daily. [facility] amLODIPine (NORVASC) 2.5 MG tablet 2019-06-28 00:00:00 00:00:00 No 2.5mg QD Take 1 tablet (2.5 mg total) by mouth keiko webb. [facility] pantoprazole (PROTONIX) in D5W (MBP) IVPB 06-28 00:00:00 2020-01-28 00:00:00 No 40mg QD Inject 40 mg intravenously viktoria y. [facility] polyethylene glycol (GLYCOLAX) 17 gram packet 20 28-06-19 00:00:00 2020-01-28 00:00:00 No 17g QD Take 17 g by mouth daily. [facility] amantadine HCl (SYMMETREL) 50 mg/5 mL solution 2 00:00:00 2019-07-28 23:59:00 No 100mg Q.5D Take 10 mLs (1 00 mg total) by mouth 2 (two) times daily for 30 days. [facility] metoprolol (TOPROL-XL) 25 MG 24 hr tablet 06-27 14:35:39 2019-06-27 00:00:00 No 25mg QD Take 25 mg by mouth daily. [facility] aspirin 81 MG EC tablet 2019-06-27 00:00:00 2020-06-26 23:59:00 No 81mg QD Take 1 tablet (81 mg total) by mouth blanquita ly Ok to resume 1 week post op on 1/20/20. [facility] metoprolol (LOPRESSOR) 25 MG tablet 2019-06-27 00:00:0 0 2020-06-26 23:59:00 No 12.5mg Q.5D Take 0.5 tablets (12.5 mg total) by mouth 2 (two) times daily. [facility] ondansetron (ZOFRAN) 4 mg/2 mL injection 2019-06 00:00:00 2020-01-28 00:00:00 No 4mg Inject 2 mLs ( 4 mg total) intravenously every 8 (eight) hours as needed. [facility] morphine 2 mg/mL injection 2019-06-27 00:00:00 2020-01-28 00:00: 00 No 2mg Inject 1 mL (2 mg total) intravenously e very 4 (four) hours as needed (severe pain 7-10). Max Daily Amount: 12 mg [facility] senna-docusate (SENOKOT S) 8.6-50 mg per tablet 2019-06-27 00:00:00 2020-01-28 00:00:00 No 1{tbl} Q.5D Take 1 tablet by mouth 2 (two) times daily. [facility] hydrALAZINE (APRESOLINE) 20 mg/mL injection 2019 00:00:00 2020-01-28 00:00:00 No 10mg Inject 0.5 mLs (10 mg total) intravenously every 15 (fifteen) minutes as needed (goal SBP<130). [facility] labetalol (NORMODYNE, TRANDATE) 5 mg/mL Syrg 00:00:00 2020-01-28 00:00:00 No 10mg Inject 2 mLs ( 10 mg total) intravenously every 15 (fifteen) minutes as needed (High Blood Pressure SBP>180). [facility] white petrolatum-mineral oil 80-20 % Oint 06-27 00:00:00 2020-01-28 00:00:00 No 1{application} QD Place 1 application into both eyes nightly. [facility] famotidine, PF, 20 mg/2 mL Soln 2019-06-27 00:00:00 00:00:00 No 20mg Q.5D Inject 2 mLs (20 mg total) intravenously 2 (two ) times daily. [facility] midazolam (VERSED) 1 mg/mL Soln injection 06-27 00:00:00 2020-01-28 00:00:00 No 1mg Inject 1 mL (1 mg total) intravenously every 2 (two) hours as needed (anxiety/agitation). Max Daily Amount: 12 mg [facility] calcium gluconate IVPB 2019-06-27 00:00:00 2020-01-28 00:00:00 No 1g Inject 1 g intravenously as needed (For Serum ionized Calcium 1 to 1.1 mMol/L). [facility] glucon[facility] 2019-06-27 00:00:2020-01-28 00:00:00 No 2g Inject 2 g intravenously as needed (For Serum ionized Calcium 0.85 to 0.99 mMol/L). [facility] bisacodyl (DULCOLAX) 5 mg EC tablet 2019-06-27 00:00:0 0 2019-07-27 23:59:00 No 10mg Take 2 tablets (10 mg total) by mouth daily as needed for Constipation for up to 30 days. [facility] chlorhexidine (PERIDEX) 0.12 % solution 00:00:00 2019-07-11 23:59:00 No 15mL Q.5D Use as directe d 15 mLs in the mouth or throat 2 (two) times daily for 14 days. [facility] benzoyl peroxide 2.5 % Crea 2019-06-27 00:00:00 2019-07-11 23:59 :00 No 1{application} Q.5D Apply 1 application topicall y 2 (two) times daily for 14 days. [facility] HYDROcodone-acetaminophen (NORCO 5-325) 5-325 mg per tablet 2019-06-27 00:00:00 2019-07-07 23:59:00 No 1{tbl} Take 1 tablet by mouth every 6 (six) hours as needed for Pain (moderate pain 4-6) for up to 10 days. Max Daily Amount: 4 tablets [facility] bisacodyl (DULCOLAX) 10 mg suppository 2019-06-09 9 00:00:00 2019-07-07 23:59:[address] 1 suppos itory (10 mg total) rectally daily as needed for up to 10 days. [facility] lisinopril (PRINIVIL,ZESTRIL) 10 MG tablet 06-20 20:51:44 2019-06-20 00:00:00 No 10mg QD Take 10 mg by mouth daily. [facility] nitroglycerin (NITROSTAT) 0.4 MG SL tablet 07-16 00:00:00 2019-07-16 23:59:00 No Put 1 pill und er tongue every 5min as needed for chest pain.No more than 3 doses in 15min. [facility] aspirin 81 MG EC tablet 2018-07-16 00:00:00 2019-06-27 00:00:00 No 81mg QD Take 1 tablet (81 mg total) by mouth daily. [facility] ticagrelor (BRILINTA) 90 mg Tab tablet 7 00:00:00 2019-06-21 00:00:00 No 90mg Q.5D Take 1 tablet (90 mg total) by m outh 2 (two) times daily. [facility] Vital Signs Vital Name Observation Time Observation Value Comments Source Systolic blood pressure 2020-01-29 11:11:00 147 mm[Hg] [facility] Diastolic blood pressure 2020-01-29 11:11:00 82 mm[Hg] [facility] Heart rate 2020-01-29 11:11:00 79 /min [facility] Body temperature 2020-01-29 11:11:00 36 Zenobia [facility] Respiratory rate 2020-01-29 11:11:00 18 /min [facility] Oxygen saturation in Arterial blood by Pulse oximetry 01-28 11:11:00 99 /min [facility] Body height 2020-01-27 09:39:00 182.9 cm [facility] Body weight 2020-01-27 09:39:00 88.451 kg [facility] BMI 2020-01-27 09:39:00 26.45 kg/m2 [facility] Procedures Procedure Date / Time Performed Performing Clinician Sour e PHENYTOIN LEVEL, TOTAL 2020-01-29 14:27:00 Pancho Rader [facility] TROPONIN I 2020-01-29 05:52:00 Fiona [facility] CARBAMAZEPINE LEVEL 2020-01-29 05:52:00 [facility] BASIC METABOLIC PANEL (7) 2020-01-29 05:52:00 [facility] CBC (HEMOGRAM ONLY) 2020-01-29 05:52:00 [facility] PHENYTOIN LEVEL, TOTAL AND FREE 2020-01-29 05:52:00 Pepe Sotelo [facility] EEG AWAKE AND DROWSY 2020-01-28 08:11:00 [facility] TROPONIN I 2020-01-28 01:22:00 Fiona [facility] BASIC METABOLIC PANEL (7) 2020-01-28 01:22:00 [facility] CBC (HEMOGRAM ONLY) 2020-01-28 01:22:00 [facility] TROPONIN I 2020-01-27 13:03:00 Fiona [facility] COMPREHENSIVE METABOLIC PANEL 2020-01-27 13:03:00 Fiona [facility] XR CHEST 1 VIEW PORTABLE/BEDSIDE 2020-01-27 11:09:00 [facility] REF LAB[facility]) 2020-01-27 10:45:00 [facility] URINALYSIS W/ REFLEX URINE CULTURE 2020-01-27 10:44:00 Kirti Bird [facility] CBC W/PLT COUNT & AUTO DIFFERENTIAL 2020-01-27 10:41:00 Fiona [place] [facility] CT BRAIN WITHOUT IV CONTRAST 2020-01-27 10:29:00 Bee Bird [facility] CT SPINE CERVICAL WITHOUT IV CONTRAST 2020-01-27 10:29:00 Dion cooper [place] [facility] NM LUNG PERFUSION IMAGING 2019-11-08 12:55:22 [place] US DUPLEX VENOUS LOWER EXTREMITY RIGHT 2019-11-08 11:44:00 Colom keshawn, Ruel Oliver REPORT OF PROCEDURE - ENDOSCOPY SCAN 2019-06-30 10:00:08 Pro vider, Default Scanning [facility] UROLOGY REPORT - SCAN 2019-06-29 15:24:09 Provider, Default Scan [facility] RHYTHM STRIP - SCAN 2019-06-29 15:23:54 Provider, Default Scanni [facility] POCT-GLUCOSE METER 2019-06-27 13:17:00 Riya [place] POCT-GLUCOSE METER 2019-06-27 05:49:00 Riya [place] CBC (HEMOGRAM ONLY) 2019-06-27 05:10:00 Minda Moreno [facility] MAGNESIUM 2019-06-27 05:10:00 Minda Moreno [facility] PHOSPHORUS 2019-06-27 05:10:00 Minda Moreno [facility] POCT-GLUCOSE METER 2019-06-26 23:57:00 Riya [place] XR ABDOMEN / KUB 1 VIEW 2019-06-26 21:28:00 Riya [place] POCT-GLUCOSE METER 2019-06-26 17:59:00 Riya [place] POCT-GLUCOSE METER 2019-06-26 12:58:00 Riya [place] POCT-GLUCOSE METER 2019-06-26 06:57:00 JenniferDominique nguyen [facility] CBC (HEMOGRAM ONLY) 2019-06-26 05:49:00 [facility] 2019-06-26 05:49:00 Minda Moreno [facility] PHOSPHORUS 2019-06-26 05:49:00 Minda Moreno [facility] XR ABDOMEN / KUB 1 VIEW 2019-06-26 05:13:00 José Antonio Ritter [facility] POCT-GLUCOSE METER 2019-06-25 22:13:00 Jennifer [facility] RHYTHM STRIP - SCAN 2019-06-25 15:50:13 Luh Robb [facility] XR ESOPH SWALLOW FUNCTION W/CINE VIDEO 2019-06-25 11:34:00 [facility]SE [facility] 2019-06-25 06:23:00 Jennifer [facility] CBC (HEMOGRAM ONLY) 2019-06-25 04:45:00 Minda Moreno [facility] MAGNESIUM 2019-06-25 04:45:00 Minda Moreno [facility] PHOSPHORUS 2019-06-25 04:45:00 Minda Moreno [facility] POCT-GLUCOSE METER 2019-06-25 00:51:00 Jennifer [facility] POCT-GLUCOSE METER 2019-06-24 17:30:00 Jennifer, [facility] POCT-GLUCOSE METER 2019-06-24 12:28:00 Jennifer, [facility] POCT-GLUCOSE METER 2019-06-24 06:13:00 Jennifer, [facility] CBC (HEMOGRAM ONLY) 2019-06-24 03:44:00 Moreno[facility] BASIC METABOLIC PANEL (7) 2019-06-24 03:44:00 Minda Moreno [facility] MAGNESIUM 2019-06-24 03:44:00 [facility] PHOSPHORUS 2019-06-24 03:44:00 Minda Moreno [facility] POCT-GLUCOSE METER 2019-06-23 23:17:00 Dominique Rodriguez [facility] TRANSFUSION SERVICE REPORT - SCAN 2019-06-23 18:01:49 Provid er, Default Scanning [facility] CT BRAIN WITHOUT IV CONTRAST 2019-06-23 17:00:00 Anderson Romano [facility] XR CHEST 1 VIEW PORTABLE/BEDSIDE 2019-06-23 14:19:00 Marissa Rodriguez [facility] POCT-GLUCOSE METER 2019-06-23 12:57:00 [facility] PO[facility]SE METER 2019-06-23 06:05:00 Jennifer, [facility] LIPID PANEL 2019-06-23 05:42:00 Coleman [facility] CBC (HEMOGRAM ONLY) 2019-06-23 05:42:00 Minda Moreno [facility] BASIC METABOLIC PANEL (7) 2019-06-23 05:42:00 Minda Moreno [facility] MAGNESIUM 2019-06-23 05:42:00 [facility] PHOSPHORUS 2019-06-23 05:42:00 Minda Moreno [facility] POCT-GLUCOSE METER 2019-06-23 00:27:00 [facility] PREPARE LEUKO-REDUCED PLATELETS 2019-06-22 23:54:00 Lashay Luevano [facility] ECHOCARDIOGRAM REPORT - SCAN 2019-06-22 21:22:08 Richardson Robb lt Scanning [facility] POCT-GLUCOSE METER 2019-06-22 18:29:00 JenniferDominique Lynn [facility] MAGNESIUM 2019-06-22 18:24:00 [facility] 2019-06-22 18:24:00 [facility] PHOSPHORUS 2019-06-22 18:24:00 Minda Moreno [facility] TRANSFUSION SERVICE REPORT - SCAN 2019-06-22 18:02:59 Provid er, Default Scanning [facility] XR ABDOMEN / KUB 1 VIEW 2019-06-22 12:06:00 Chema Diaz [facility] 2D ECHO W/ DOPPLER (CW/PW/COLOR) 2019-06-22 09:23:08 Ranjeet Montoya [facility] LIPID PANEL 2019-06-22 03:12:00 Coleman [facility] CBC (HEMOGRAM ONLY) 2019-06-22 03:12:00 Minda Moreno [facility] BASIC METABOLIC PANEL (7) 2019-06-22 03:12:00 Minda Moreno [facility] MAGNESIUM 2019-06-22 03:12:00 Minda Moreno [facility] PHOSPHORUS 2019-06-22 03:12:00 Minda Moreno [facility] TRANSFUSE LEUKO-REDUCED PLATELETS 2019-06-21 12:23:02 Edgar Luevano [facility] TISSUE EXAM 2019-06-21 10:56:00 Carlos Mohan [facility] CRANIOTOMY 2019-06-21 09:05:00 Carlos Mohan [facility] POCT-P2Y12 PLATELET AGGREGATION 2019-06-21 08:00:00 Holland Hampton [facility] HEMOGLOBIN A1C 2019-06-21 07:19:00 Coleman [facility] POCT-GLUCOSE METER 2019-06-21 06:34:00 Hari Rivas [facility] CT BRAIN WITHOUT IV CONTRAST 2019-06-21 06:05:00 Raymon Luevano [facility] TRANSFUSE LEUKO-REDUCED PLATELETS 2019-06-21 05:28:29 Edgar Luevano nini Gisselle [facility] ABORH, MANUAL 2019-06-21 02:16:00 Amanda Barakat [facility] BASIC METABOLIC PANEL (7) 2019-06-21 01:43:00 Markie Briones [facility] MAGNESIUM 2019-06-21 01:43:00 Kemnade [facility] HEPATIC FUNCTION PANEL 2019-06-21 01:43:00 Kemnade [facility] LIPID PANEL 2019-06-21 01:43:00 Kemnade [facility] CBC W/PLT COUNT & AUTO DIFFERENTIAL 2019-06-21 01:43:00 Markie Estevez [facility] POCT-GLUCOSE METER 2019-06-21 01:32:00 Hari Rivas [facility] TYPE AND SCREEN, AUTOMATED 2019-06-21 01:17:00 Raymon Luevano [facility] CTA BRAIN 2019-06-20 23:32:00 Lashay Hagan I [facility] CT/CTA CAROTID 2019-06-20 23:32:00 Lashay Hagan CH I [facility] POCT-GLUCOSE METER 2019-06-20 22:55:00 Hari Rivas [facility] MR BRAIN WITHOUT IV CONTRAST 2019-06-20 22:24:00 Coleman Dover [facility] CONT WAVE PULSED DOPPLER 2019-06-20 21:11:51 Coleman Dover [facility] CT/CTA CAROTID 2019-06-20 18:51:00 Luis E Martel, Markie Au [facility] CTA BRAIN 2019-06-20 18:51:00 Markie Briones [facility] BASIC METABOLIC PANEL (7) 2019-06-20 18:27:00 Craig Steven Martinezsayda jones [facility] MAGNESIUM 2019-06-20 18:27:00 Craig [facility] TROPONIN I 2019-06-20 18:27:00 Craig [facility] PT/APTT 2019-06-20 18:27:00 Craig [facility] B-TYPE NATRIURETIC FACTOR (BNP) 2019-06-20 18:27:00 Craig [facility] CBC W/PLT COUNT & AUTO DIFFERENTIAL 2019-06-20 18:27:00 Craig [facility] POCT-GLUCOSE METER 2019-06-20 18:19:00 Craig [facility] BRAIN/STROKE TEST DESIGN 2019-06-20 18:14:00 Steven Srinivasan [facility] ECG 12-LEAD 2019-06-20 18:06:52 Unknown, Hl7 Doctor [facility] Plan of Care Planned Activity Planned Date Details Comments Source Future Scheduled Test 2020-02-08 00:00:00 INFLUENZA VACCINE (#1) [code = INFLUENZA VACCINE (#1)] [facility] Future Scheduled Test 2020-01-08 00:00:00 INFLUENZA VACCINE [code = INFLUENZA VACCINE] Javier Oliver Future Scheduled Test 2012-04-10 00:00:00 MEDICARE ANNUAL WE LLNESS (YEAR 2 or FIRST YEAR if no IPPE) [code = MEDICARE ANNUAL WELLNESS (YEAR 2 or FIRST YEAR if no IPPE)] [facility] Future Scheduled Test 2011 00:00:00 PNEUMOCOCCAL 65+ Y RS (1 of 1 - [id number] PCV13) [code = PNEUMOCOCCAL 65+ YRS (1 of 1 - [id number] PCV13)] [facility] Future Scheduled Test 1996 00:00:00 COLONOSCOPY SCREEN ING [code = COLONOSCOPY SCREENING] [facility] Scheduled Test 1996 00:00:00 SHINGLES VACCINES (#1) [code = SHINGLES VACCINES (#1)] [facility] Scheduled Test 1946 00:00:00 Screening for lyle head neoplasm of colon (procedure) [code = 382946216] [facility] Encounters Start Date/Time End Date/Time Encounter Type [facility] ID Source 2019-11-08 00:00:00 2019-11-08 00:00:00 Outpatient COLOMER, ALBE RTO [facility] [id number] [facility] 2019-11-08 00:00:00 2019-11-08 00:00:00 Outpatient COLOMER, ALBE RTO [facility] [id number] [facility] 2019-08-04 20:09:00 2019-08-04 17:42:00 Inpatient E [facility] MED 7502 [facility] Results Test Description Test Time Test Comments Results Result Comments Source Phenytoin level, total and free 2020-02-01 12:00:00 Test Item Phenytoin (test code = 3968-5) 9.0 ug/mL 10-20 L Testing performed at [facility]. Dilantin, Free (test code = 3969-3) 0.55 1.00- 2.00 mcg/ml L Testing performed at [facility]. Lab Interpretation (test code = 41774-0) [facility] AND [id number] 12:00:00 * Test Item Value Reference Range Interpretation Comments PHENYTOIN (DILANTIN) (BEAKER) (test code = 605) 9.0 ug/mL 10.0-2 0.0 L Testing performed at [facility]. PHENYTOIN FREE (BEAKER) (test code = 847) 0.55 mcg/ml 1.00-2.00 L Testing performed at [facility]. Phenytoin level, [id number] 15:25:00* Test Item Value Reference Range Interpretation Comments Phenytoin (test code = 3968-5) 7.0 ug/mL 10-20 L ANA (test code = ANA) Crayon Painter ID - GRANT M Lab Interpretation (test code = 16271-4) [facility], [id number] 15:25:00* Test Item Value Reference Range Interpretation Comments PHENYTOIN (DILANTIN) (BEAKER) (test code = 605) 7.0 ug/mL 10.0-2 0.0 L Crayon Painter ID - GRANT MCarbamazepine [id number] 07:24:00* Test Item Value Reference Range Interpretation Comments Carbamazepine Lvl (test code = 3432-2) 4.1 ug/mL 4-12 ANA (test code = ANA) Crayon Painter ID - GRANT M Lab Interpretation (test code = 47040-6) [facility] 07:24:00* Test Item Value Reference Range Interpretation Comments CARBAMAZEPINE LEVEL (BEAKER) (test code = 696) 4.1 ug/mL 4.0-12. 0 Crayon Painter ID - [facility] MTroponin [id number] 07:14:00* Test Item Value Reference Range Interpretation Comments Troponin I (test code = 56159-6) 0.01 ng/mL 0-0.03 ANA (test code = ANA) Troponin I (TnI) levels must be interpreted in the context of the presenting symptoms and the clinical findings. Elevated TnI levels indicate myocardial damage, but are not specific for ischemic heart disease. Elevated TnI levels are seen in patients with other cardiac conditions (including myocarditis and congestive heart failure), and slight TnI elevations occur in patients with other conditions, including sepsis, renal failure, acidosis, acute neurological disease, and persistent tachyarrhythmia.Crayon Painter ID - GRANT M Lab Interpretation (test code = 57551-6) [facility] [id number] 07:14:00* Test Item Value Reference Range Interpretation Comments TROPONIN I (BEAKER) (test code = 397) 0.01 ng/mL 0.00-0.03 Troponin I (TnI) levels must be interpreted in the context of the presenting sym ptoms and the clinical findings. Elevated TnI levels indicate myocardial damage, but are not specific for ischemic heart disease. Elevated TnI levels are seen in patients with other cardiac conditions (including myocarditis and congestive h eart failure), and slight TnI elevations occur in patients with other conditions , including sepsis, renal failure, acidosis, acute neurological disease, and per sistent tachyarrhythmia.Crayon Painter ID - GRANT MBasic Metabolic [id number] 07:05:00* Test Item Value Reference Range Interpretation Comments Sodium (test code = 2951-2) 132 meq/L 136-145 L Potassium (test code = 2823-3) 4.4 meq/L 3.5-5.1 Chloride (test code = 2075-0) 99 meq/L 98-107 CO2 (test code = 8-9) 24 meq/L 22-29 BUN (test code = 3094-0) 12 mg/dL 7-21 Creatinine (test code = 2160-0) 0.92 mg/dL 0.57-1.25 Glucose (test code = 2345-7) 103 mg/dL 70-105 Calcium (test code = 72499-5) 9.7 mg/dL 8.4-10.2 EGFR (test code = 90040-0) 81 mL/min/1.73 sq m ESTIMATED GFR IS NOT ACCURATE CREATININE CLEARANCE IN PREDICTING GLOMERULAR FILTRATION RATE. ESTIMATED GFR IS NOT APPLICABLE FOR DIALYSIS PATIENTS. ANA (test code = ANA) Crayon Painter ID - GRANT M Lab Interpretation (test code = 49696-8) Abnormal [facility] METABOLIC [id number] 07:05:00* Test Item Value Reference Range Interpretation Comments SODIUM (BEAKER) (test code = 381) 132 meq/L 136-145 L POTASSIUM (BEAKER) (test code = 379) 4.4 meq/L 3.5-5.1 CHLORIDE (BEAKER) (test code = 382) 99 meq/L 98-107 CO2 (BEAKER) (test code = 355) 24 meq/L 22-29 BLOOD UREA NITROGEN (BEAKER) (test code = 354) 12 mg/dL 7-21 CREATININE (BEAKER) (test code = 358) 0.92 mg/dL 0.57-1.25 GLUCOSE RANDOM (BEAKER) (test code = 652) 103 mg/dL 70-105 CALCIUM (BEAKER) (test code = 697) 9.7 mg/dL 8.4-10.2 EGFR (BEAKER) (test code = 1092) 81 mL/min/1.73 sq m ESTIMATED GFR IS NOT ACCURATE CREATININE CLEARANCE IN PREDICTING GLOMERULAR FILTRATION RATE. ESTIMATED GFR IS NOT APPLICABLE FOR DIALYSIS PATIENTS. Crayon Painter [facility] [place] [facility]2020-01-29 06:25:00* Test Item Value Reference Range Interpretation Comments WBC (test code = 6690-2) 6.9 3.5- 10.5 K/L RBC (test code = 789-8) 3.88 4.63- 6.08 M/L L MCHC (test code = 786-4) 34.1 32.3- 36.5 GM/DL L Hematocrit (test code = 4544-3) 35.8 % 40.1-51 L MCV (test code = 787-2) 92.3 fL 79-92.2 H MCH (test code = 785-6) 31.4 pg 25.7-32.2 RDW (test code = 788-0) 15.9 % 11.6-14.4 H Platelets (test code = 777-3) 275 150- 450 K/CU MM MPV (test code = 89970-2) 8.9 fL 9.4-12.4 L nRBC (test code = 413) 0 0- 0 /100 WBC Lab Interpretation (test code = 42145-5) Abnormal [facility] (HEMOGRAM ONLY)2020-01-29 06:25:00* Test Item Value Reference Range Interpretation Comments WHITE BLOOD CELL COUNT (BEAKER) (test code = 775) 6.9 K/ L 3.5- 10.5 RED BLOOD CELL COUNT (BEAKER) (test code = 761) 3.88 M/ L 4.63-6 .08 L HEMOGLOBIN (BEAKER) (test code = 410) 12.2 GM/DL 13.7-17.5 L HEMATOCRIT (BEAKER) (test code = 411) 35.8 % 40.1-51.0 L MEAN CORPUSCULAR VOLUME (BEAKER) (test code = 753) 92.3 fL 79. 0-92.2 H MEAN CORPUSCULAR HEMOGLOBIN (BEAKER) (test code = 751) 31.4 pg 25.7-32.2 MEAN CORPUSCULAR HEMOGLOBIN CONC (BEAKER) (test code = 752) 34.1 GM/DL 32.3-36.5 RED CELL DISTRIBUTION WIDTH (BEAKER) (test code = 412) 15.9 % 11.6-14.4 H PLATELET COUNT (BEAKER) (test code = 756) 275 K/CU MM 150-450 MEAN PLATELET VOLUME (BEAKER) (test code = 754) 8.9 fL 9.4-12 .4 L NUCLEATED RED BLOOD CELLS (BEAKER) (test code = 413) 0 /100 WBC 0 -0 EEG AWAKE AND [id number] 14:35:00Reason for exam:->SEIZURESDate(s) of EE01/28/2020 Date of report: 01/28/2020Start time: 7:36 AMStop time: 8:11 AM ACC#: [id number] #: [id number] CPT: 58990 ICD10: R56.9HISTORY: 74 year old male had witnessed GTC with postictal confusion, last seizure was 09/2019. Patient had acute ischemic that progressed to hemorrhagic stroke 06/2019MEDICATIONS THAT COULD AFFECT EEG: Allopurinol, amlodipine, Aspirin, Atorvastatin, Famotidine, Hydralazine, Labetalol, Losartan, Metoprolol, Midazolam, Morphine, Ondansetron, Pantoprazole, Senna docusateTECHNICAL SUMMARY: This is a digital video-EEG r ecorded with 32 input channels reviewed with bipolar and referential montages us ing the modified combinatorial system nomenclature. DESCRIPTION OF RECORD: Durin g a maximally alert state, the posterior dominant rhythm was 8 Hz and well regul ated over the right occipital area. The background over the right hemisphere is represented by 5-7 hz frequencies. The activity over the left hemisphere is sander nated by a moderate voltage 1.5 - 3 hz slow waves. The background amplitudes ove r the left fronto-central region are higher in voltage and sharply configured. R are epileptiform sharp waves are present in the left central region (C3). Drowsy or sleep patterns were not observed.EVENTS: No clinical or electrographic seizu res were recorded. HV: Hyperventilation was not performed. PHOTIC STIMULATION: F lash stimulation was performed 1-33 Hz. Photic stimulation was physiologic and d idn't elicit any abnormal discharges IMPRESSION: Abnormal awake EEG - Mild diffu se background slowing - Focal slowing over the left hemisphere- amplitude asymme try in the left fronto-central area (breach effect)- Rare epileptiform sharp wav es in the left central region (C3.CLINICAL CORRELATION: The background slowing a s seen in this record indicate the presence of a mild encephalopathy. The focal slow activity indicates the presence of a lesion affecting broadly the left syeda sphere. The background asymmetry suggests the presence of an underlying skull de fect (breach effect). The epileptiform sharp waves indicate the presence of a le alvaro with a propensity towards the generation of epileptic seizures.Olivia kaye MDNeurophysiology/Epilepsy FellowAttending note: I reviewed this EEG record and I agree with the details of the report.Corie Jalloh MD, PhDNeurophysiology /Epilepsy attending.ꦆ&#[id number]; AWAKE AND [id number] 14:35:00 Interface, External Ris In - 01/28/2020 2:35 PM CDTDate(s) of EE01/28/2020 D ate of report: 01/28/2020Start time: 7:36 AMStop time: 8:11 AM ACC#: [id number] #: [id number] CPT: 95808 ICD10: R56.9HISTORY: 74 year old male had witnessed GTC w ith postictal confusion, last seizure was 09/2019. Patient had acute ischemic evangelina t progressed to hemorrhagic stroke 06/2019MEDICATIONS THAT COULD AFFECT EEG: Allo purinol, amlodipine, Aspirin, Atorvastatin, Famotidine, Hydralazine, Labetalol, Losartan, Metoprolol, Midazolam, Morphine, Ondansetron, Pantoprazole, Senna docu sateTECHNICAL SUMMARY: This is a digital video-EEG recorded with 32 input channe ls reviewed with bipolar and referential montages using the modified combinatori al system nomenclature. DESCRIPTION OF RECORD: During a maximally alert state, t he posterior dominant rhythm was 8 Hz and well regulated over the right occipita l area. The background over the right hemisphere is represented by 5-7 hz freque ncies. The activity over the left hemisphere is dominated by a moderate voltage 1.5 - 3 hz slow waves. The background amplitudes over the left fronto-central re gion are higher in voltage and sharply configured. Rare epileptiform sharp waves are present in the left central region (C3). Drowsy or sleep patterns were not observed.EVENTS: No clinical or electrographic seizures were recorded. HV: Hyper ventilation was not performed. PHOTIC STIMULATION: Flash stimulation was perform ed 1-33 Hz. Photic stimulation was physiologic and didn't elicit any abnormal di scharges IMPRESSION: Abnormal awake EEG - Mild diffuse background slowing - Foca l slowing over the left hemisphere- amplitude asymmetry in the left fronto-centr al area (breach effect)- Rare epileptiform sharp waves in the left central regio n (C3.CLINICAL CORRELATION: The background slowing as seen in this record indica te the presence of a mild encephalopathy. The focal slow activity indicates the presence of a lesion affecting broadly the left hemisphere. The background asymm etry suggests the presence of an underlying skull defect (breach effect). The ep ileptiform sharp waves indicate the presence of a lesion with a propensity towar ds the generation of epileptic seizures.Olivia Keenan MDNeurophysiology/Epilep sy FellowAttending note: I reviewed this EEG record and I agree with the details of the report.Corie Jalloh MD, PhDNeurophysiology/Epilepsy attending.ⱊ& #[id number]; [facility] METABOLIC [id number] 02:18:00* Test Item Value Reference Range Interpretation Comments SODIUM (BEAKER) (test code = 381) 130 meq/L 136-145 L POTASSIUM (BEAKER) (test code = 379) 3.8 meq/L 3.5-5.1 CHLORIDE (BEAKER) (test code = 382) 97 meq/L 98-107 L CO2 (BEAKER) (test code = 355) 24 meq/L 22-29 BLOOD UREA NITROGEN (BEAKER) (test code = 354) 8 mg/dL 7-21 CREATININE (BEAKER) (test code = 358) 0.77 mg/dL 0.57-1.25 GLUCOSE RANDOM (BEAKER) (test code = 652) 92 mg/dL 70-105 CALCIUM (BEAKER) (test code = 697) 9.3 mg/dL 8.4-10.2 EGFR (BEAKER) (test code = 1092) 99 mL/min/1.73 sq m ESTIMATED GFR IS NOT ACCURATE CREATININE CLEARANCE IN PREDICTING GLOMERULAR FILTRATION RATE. ESTIMATED GFR IS NOT APPLICABLE FOR DIALYSIS PATIENTS. Crayon Painter ID - PIAYA LTROPONIN [id number] 02:17:00* Test Item Value Reference Range Interpretation Comments TROPONIN I (BEAKER) (test code = 397) 0.04 ng/mL 0.00-0.03 H Troponin I (TnI) levels must be interpreted in the context of the presenting sym ptoms and the clinical findings. Elevated TnI levels indicate myocardial damage, but are not specific for ischemic heart disease. Elevated TnI levels are seen in patients with other cardiac conditions (including myocarditis and congestive h eart failure), and slight TnI elevations occur in patients with other conditions , including sepsis, renal failure, acidosis, acute neurological disease, and per sistent tachyarrhythmia.Crayon Painter ID - PIAYA [facility] (HEMOGRAM ONLY)2020-01-28 02:03:00* Test Item Value Reference Range Interpretation Comments WHITE BLOOD CELL COUNT (BEAKER) (test code = 775) 5.6 K/ L 3.5- 10.5 RED BLOOD CELL COUNT (BEAKER) (test code = 761) 3.71 M/ L 4.63-6 .08 L HEMOGLOBIN (BEAKER) (test code = 410) 11.4 GM/DL 13.7-17.5 L HEMATOCRIT (BEAKER) (test code = 411) 33.7 % 40.1-51.0 L MEAN CORPUSCULAR VOLUME (BEAKER) (test code = 753) 90.8 fL 79. 0-92.2 Discordant MCV results compared to previous results; clinical correlation required. MEAN CORPUSCULAR HEMOGLOBIN (BEAKER) (test code = 751) 30.7 pg 25.7-32.2 MEAN CORPUSCULAR HEMOGLOBIN CONC (BEAKER) (test code = 752) 33.8 GM/DL 32.3-36.5 RED CELL DISTRIBUTION WIDTH (BEAKER) (test code = 412) 15.3 % 11.6-14.4 H PLATELET COUNT (BEAKER) (test code = 756) 242 K/CU MM 150-450 Discordant PLT results compared to previous results; clinical correlation required. MEAN PLATELET VOLUME (BEAKER) (test code = 754) 9.0 fL 9.4-12 .4 L NUCLEATED RED BLOOD CELLS (BEAKER) (test code = 413) 0 /100 WBC 0 -0 SARS-CoV2/RT-PCR (Asymptomatic ONLY)2020-01-27 15:36:00* Test Item Value Reference Range Interpretation Comments SARS-COV2/RT-PCR (test code = 89175-8) Negative N ot Detected, Negative, See external report for linked test SARS-COV-2 PERFORMING LAB (test code = 60874-8) [facility] ANA (test code = ANA) Negative result for this jena t determines that SARS-CoV-2 RNA was not present in the specimen above the Limit of Detection (LOD). However, Negative results do not preclude SARS-CoV-2 infection and should not be used as the sole basis for treatment or patient management decisions. Negative results must be combined with clinical observations, patient history, and epidemiological information. A false negative result may occur if a specimen is improperly collected, transported or handled. A false negative result should be considered if patient's recent exposures or clinical presentation indicate that COVID-19 (SARS-CoV-2) is likely and diagnostic tests for other causes of illness are negative. Re-testing should be considered in cases of suspected false negatives. The limit of detection for this assay is 800 copies/mL. This SARS CoV-2 test is a real-time RT-PCR test intended for the qualitative detection of nucleic acid from SARS-CoV-2 in a nasopharyngeal swab specimen collected from individuals suspected of COVID-19 by their healthcare provider. This test has not been Food and Drug Administration (FDA) cleared or approved. This is a modified version of an approved Emergency Use Authorization (EUA) and is in the process of review by the FDA. Once authorized by the FDA, the issued EUA will be effective until the declaration that circumstances exist justifying the authorization of the emergency use of in vitro diagnostic tests for detection and/or diagnosis of COVID-19 is terminated under Section 564(b)(2) of the Act or the EUA is revoked under Section 564(g) of the Act. Fact Sheet for Healthcare Providers:https://www.[employer].com/sites/default/files/product/documents/Fact_Shee g_DW_Zbtomywgi_Rncg_EYXE-HkY-2.pdf Fact Sheet for Healthcare Patients:https://www.[employer]/sites/default/files/pro duct/documents/Fuao_Zqpgs_Vyeqsrfp_Ojnf_SYZG-EcT-9.pdf Performing Laboratory:[facility] [place] [address] [facility] ([facility])2020-01-27 15:36:00* Test Item Value Reference Range Interpretation Comments SARS-COV2/RT-PCR (test code = 5142083) Negative N ot Detected, Negative, See external report for linked test SARS-COV-2 PERFORMING LAB (test code = 6394270) [facility] Negative result for this test determines that SARS-CoV-2 RNA was not present in the specimen above the Limit of Detection (LOD). However, Negative results do n ot preclude SARS-CoV-2 infection and should not be used as the sole basis for tr eatment or patient management decisions. Negative results must be combined with clinical observations, patient history, and epidemiological information. A false negative result may occur if a specimen is improperly collected, transported or handled. A false negative result should be considered if patient's recent expo sures or clinical presentation indicate that COVID-19 (SARS-CoV-2) is likely and diagnostic tests for other causes of illness are negative. Re-testing should be considered in cases of suspected false negatives.The limit of detection for this assay is 800 copies/mL.This SARS CoV-2 test is a real-time RT-PCR test intended for the qualitative detection of nucleic acid from SARS-CoV-2 in a nasopharyn geal swab specimen collected from individuals suspected of COVID-19 by their [facility] provider.This test has not been Food and Drug Administration (FDA) clear ed or approved. This is a modified version of an approved Emergency Use Authori zation (EUA) and is in the process of review by the FDA. Once authorized by [facility] FDA, the issued EUA will be effective until the declaration that circumstances exist justifying the authorization of the emergency use of in vitro diagnostic tests for detection and/or diagnosis of COVID-19 is terminated under Section 564 (b)(2) of the Act or the EUA is revoked under Section 564(g) of the Act.Fact She et for Healthcare Providers:https://www.[employer]/sites/default/files/product/d ocuments/Yabe_Yasyc_AZ_Qlorhgkoa_Givm_NGBR-RyC-1.pdfFact Sheet for Healthcare Pa johnshakas:https://www.[employer]/sites/default/files/product/documents/Fact_Sheet_P bhusuoo_Dkzf_RSTV-FjU-1.pdfPerforming Laboratory:[facility] r[address], [place] [address]AZCQGMIZ [id number] 13:43:00* Test Item Value Reference Range Interpretation Comments TROPONIN I (BEAKER) (test code = 397) < ng/mL 0.00-0.03 Troponin I (TnI) levels must be interpreted in the context of the presenting sym ptoms and the clinical findings. Elevated TnI levels indicate myocardial damage, but are not specific for ischemic heart disease. Elevated TnI levels are seen in patients with other cardiac conditions (including myocarditis and congestive h eart failure), and slight TnI elevations occur in patients with other conditions , including sepsis, renal failure, acidosis, acute neurological disease, and per sistent tachyarrhythmia.Crayon Painter ID - NTPComprehensive metabolic [id number] 13:34:00* Test Item Value Reference Range Interpretation Comments Protein, Total (test code = 2885-2) 7.3 6.0- 8.3 gm/dL Albumin (test code = 87674-7) 4.1 g/dL 3.5-5 Alkaline Phosphatase (test code = 6768-6) 128 U/L 40-150 Total Bilirubin (test code = 1975-2) 0.4 mg/dL 0.2-1.2 Sodium (test code = 2951-2) 129 meq/L 136-145 L Potassium (test code = 2823-3) 4.5 meq/L 3.5-5.1 Chloride (test code = 2075-0) 94 meq/L 98-107 L CO2 (test code = 2027-9) 25 meq/L 22-29 BUN (test code = 3094-0) 8 mg/dL 7-21 Creatinine (test code = 2160-0) 0.80 mg/dL 0.57-1.25 Glucose (test code = 2345-7) 106 mg/dL 70-105 H Calcium (test code = 79806-0) 9.2 mg/dL 8.4-10.2 AST (test code = 1920-8) 18 U/L 5-34 ALT (test code = 1742-6) 23 U/L 6-55 EGFR (test code = 61129-0) 95 mL/min/1.73 sq m ESTIMATED GFR IS NOT ACCURATE CREATININE CLEARANCE IN PREDICTING GLOMERULAR FILTRATION RATE. ESTIMATED GFR IS NOT APPLICABLE FOR DIALYSIS PATIENTS. ANA (test code = ANA) Crayon Painter ID - NTP Lab Interpretation (test code = 98020-7) [facility] [id number] 13:34:00* Test Item Value Reference Range Interpretation Comments TOTAL PROTEIN (BEAKER) (test code = 770) 7.3 gm/dL 6.0-8.3 ALBUMIN (BEAKER) (test code = 1145) 4.1 g/dL 3.5-5.0 ALKALINE PHOSPHATASE (BEAKER) (test code = 346) 128 U/L 40-150 BILIRUBIN TOTAL (BEAKER) (test code = 377) 0.4 mg/dL 0.2-1.2 SODIUM (BEAKER) (test code = 381) 129 meq/L 136-145 L POTASSIUM (BEAKER) (test code = 379) 4.5 meq/L 3.5-5.1 CHLORIDE (BEAKER) (test code = 382) 94 meq/L 98-107 L CO2 (BEAKER) (test code = 355) 25 meq/L 22-29 BLOOD UREA NITROGEN (BEAKER) (test code = 354) 8 mg/dL 7-21 CREATININE (BEAKER) (test code = 358) 0.80 mg/dL 0.57-1.25 GLUCOSE RANDOM (BEAKER) (test code = 652) 106 mg/dL 70-105 H CALCIUM (BEAKER) (test code = 697) 9.2 mg/dL 8.4-10.2 AST (SGOT) (BEAKER) (test code = 353) 18 U/L 5-34 ALT (SGPT) (BEAKER) (test code = 347) 23 U/L 6-55 EGFR (CLAY) (test code = 1092) 95 mL/min/1.73 sq m ESTIMATED GFR IS NOT ACCURATE CREATININE CLEARANCE IN PREDICTING GLOMERULAR FILTRATION RATE. ESTIMATED GFR IS NOT APPLICABLE FOR DIALYSIS PATIENTS. Crayon Painter ID - NTPCT, SPINE, CERVICAL, WO [id number] 11:49:00Reason for exam:->SEIZURESWhat is the patient's sedation requirement?->No SedationFINAL REPORT CT Cervical spine CLINICAL HISTORY: Neck pain, initial examSEIZURES TECHNIQUE: Contiguous axial images of the cervical spine with coronal and sagittal reformations to assess the alignment. This exam was p erformed according to the departmental dose optimization program which includes automated exposure control, adjustment of the mA and/or kV according to the romeo ent size, and/or use of an iterative reconstruction technique. COMPARISON: None FINDINGS: The vertebral body heights are preserved without fracture or dislocati on. There is no prevertebral soft tissue swelling. There is straightening of the cervical curvature with maintained alignment. Allowing for the lack of intrathe devin contrast, there is no critical appearing central canal stenosis. There are s cattered subcentimeter lymph nodes in the neck. There is biapical emphysematous disease. IMPRESSION: No cervical fracture or dislocation. Signed: Waylon Esteves MDReport Verified Date/Time: 01/27/2020 11:49:52 Reading Location: [facility] Radiology Reading Room spine cervical without IV [id number] 11:49:00 Interface, External Ris In - 01/27/2020 11:52 AM CDTFINAL REPORT PATIENT ID: [id number] Cervical spine CLINICAL HISTORY: Neck pain, initial examSEIZURES TECH NIQUE: Contiguous axial images of the cervical spine with coronal and sagittal r eformations to assess the alignment. This exam was performed according to the de partmental dose optimization program which includes automated exposure control, adjustment of the mA and/or kV according to the patient size, and/or use of an i terative reconstruction technique. COMPARISON: None FINDINGS: The vertebral body heights are preserved without fracture or dislocation. There is no prevertebral soft tissue swelling. There is straightening of the cervical curvature with fernando ntained alignment. Allowing for the lack of intrathecal contrast, there is no cr itical appearing central canal stenosis. There are scattered subcentimeter lymph nodes in the neck. There is biapical emphysematous disease. IMPRESSION: No cerv ical fracture or dislocation. Signed: Waylon Estevesort Verified Date/Time: 01/27/2020 11:49:52 Reading Location: [facility] Radiology Reading [facility], WITHOUT [id number] 11:42:00Reason for exam:->SEIZURESWhat is the patient's sedation requirement?->No SedationFINAL REPORT CT Head without contrast CLINICAL HISTORY: Altered mental statusSEIZURES TECHNIQUE: Contiguous axial CT images through the head without contrast. This exam was performed according to the departmental dose optimization program which includes automated exposure control, adjustment of t he mA and/or kV according to the patient size, and/or use of an iterative recons truction technique. COMPARISON: 06/23/2019 FINDINGS: There is no CT evidence of a cute infarct or intracranial hemorrhage. The previously acute left middle cerebr al artery distribution infarct is now chronic with encephalomalacia primarily in the posterior division. There is periventricular and subcortical white matter h ypodensity which is nonspecific but compatible with chronic microvascular ischem ic change. There are atherosclerotic calcifications of the intracranial circulat ion. There is generalized parenchymal volume loss without hydrocephalus, midline shift, or apparent mass effect. There are no extra-axial fluid collections. A l eft-sided craniotomy is again seen. The visualized paranasal sinuses are well-ae rated. IMPRESSION: No CT evidence of acute infarct, hemorrhage, or hydrocephalu s. 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 Signed: Andres Esteves MDReport Verified Date/Time: 01/27/2020 11:42:33 Reading Location: [facility] Radiology Reading Room brain without IV [id number] 11:42:00Interface, External Ris In - 01/27/2020 11:[address] Head without contrast CLINICAL HISTORY: Altered mental statusSEIZURES TECHNIQUE: Contiguous axial CT images through the [...] previously acute left middle cerebral artery distribution infar ct is now chronic with encephalomalacia primarily in the posterior division. The re is periventricular and subcortical white matter hypodensity which is nonspeci fic but compatible with chronic microvascular ischemic change. There are atheros clerotic calcifications of the intracranial circulation. There is generalized pa renchymal volume loss without hydrocephalus, midline shift, or apparent mass eff ect. There are no extra-axial fluid collections. A left-sided craniotomy is agai n seen. The visualized paranasal sinuses are well-aerated. IMPRESSION: No CT ev idence of acute infarct, hemorrhage, or hydrocephalus. Chronic left middle cereb ral artery distribution infarct. Signed: Waylon Esteves Verified Date/Ti me: 01/27/2020 11:42:33 Reading Location: [facility], 1 VIEW, NON [id number] 11:25:00Reason for exam:->sobShould this be performed at the bedside?->YesFINAL REPORT CLINICAL HISTORY: sob TECHNIQUE: 1 view of the chest. COMPARISON: 06/23/2019 IMPRESSION: There are mildly prominent lung markings. There is no lobar consolidation or significant pleural fluid. The cardiomediastinal silhouette is magnified by technique. Signed: Waylon Esteves Verified Date/Time: 01/27/2020 11:25:20 Reading Location: [facility] Radiology Reading Room chest 1 view portable / [id number] 11:25:00Interface, External Ris In - 01/27/2020 11:30 AM CDTFINAL REPORT CLINICAL HISTORY: sob TECHNIQUE: 1 view of the chest. COMPARISON: 06/23/2019 IMPRESSION: There are mildly prominent lung markings. There is no lobar con solidation or significant pleural fluid. The cardiomediastinal silhouette is mag nified by technique. Signed: Waylon Esteves MDReport Verified Date/Time: 020 11:25:20 Reading Location: [facility] Radiology Reading Room Electro nically signed by: WAYLON ESTEVES M.D. on 01/27/2020 11:25 AM [facility] w/Microscopic + Reflex to [id number] 11:02:00* Test Item Value Reference Range Interpretation Comments Color, UA (test code = 5778-6) Light Yellow Clarity, UA (test code = 5767-9) Clear Specific [place], UA (test code = 5811-5) 1.014 1.001-1.035 pH, UA (test code = 5803-2) 6.0 5.0-8.0 Protein, UA (test code = 92985-8) 30 mg/dL Negative A Glucose, UA (test code = 365) Negative Negative Ketones, UA (test code = 2514-8) Trace Negative A Bilirubin, UA (test code = 59065-2) Negative Negative Blood, UA (test code = 33348-8) Negative Negative Nitrite, UA (test code = 5802-4) Negative Negative Leukocytes, UA (test code = 5799-2) Negative Negative Urobilinogen, UA (test code = 84900-2) 0.2 mg/dL 0.2-1 RBC, UA (test code = 00861-4) <1 /HPF WBC, UA (test code = 5821-4) 1 /HPF Mucus (test code = 8247-9) Rare Specimen Source (test code = 2795) ANA (test code = ANA) Crayon Painter ID - [auto]Crayon Painter ID - alonso Lab Interpretation (test code = 18681-9) Abnormal [facility]/ REFLEX URINE [id number] 11:02:00* Test Item Value Reference Range Interpretation Comments COLOR (BEAKER) (test code = 470) Light Yellow CLARITY (BEAKER) (test code = 469) Clear SPECIFIC GRAVITY UA (BEAKER) (test code = 468) 1.014 1.001-1 .035 PH UA (BEAKER) (test code = 467) 6.0 5.0-8.0 PROTEIN UA (BEAKER) (test code = 464) 30 mg/dL Negative A GLUCOSE UA (BEAKER) (test code = 365) Negative Negative KETONES UA (BEAKER) (test code = 371) Trace Negative A BILIRUBIN UA (BEAKER) (test code = 462) Negative Negative BLOOD UA (BEAKER) (test code = 461) Negative Negative NITRITE UA (BEAKER) (test code = 465) Negative Negative LEUKOCYTE ESTERASE UA (BEAKER) (test code = 466) Negative Negat jackie UROBILINOGEN UA (BEAKER) (test code = 463) 0.2 mg/dL 0.2-1.0 RBC UA (BEAKER) (test code = 519) < /HPF WBC UA (BEAKER) (test code = 520) 1 /HPF MUCUS (BEAKER) (test code = 1574) Rare SOURCE(BEAKER) (test code = 2795) Crayon Painter ID - [auto]Crayon Painter ID - hankCBC with platelet count + automated diff 2020-01-27 10:55:00* Test Item Value Reference Range Interpretation Comments WBC (test code = 6690-2) 4.9 3.5- 10.5 K/L RBC (test code = 789-8) 2.74 4.63- 6.08 M/L L MCHC (test code = 786-4) 32.6 32.3- 36.5 GM/DL L Hematocrit (test code = 4544-3) 26.1 % 40.1-51 L MCV (test code = 787-2) 95.3 fL 79-92.2 H MCH (test code = 785-6) 31.0 pg 25.7-32.2 RDW (test code = 788-0) 15.7 % 11.6-14.4 H Platelets (test code = 777-3) 143 150- 450 K/CU MM L MPV (test code = 23602-9) 9.0 fL 9.4-12.4 L nRBC (test code = 413) 0 0- 0 /100 WBC % Neutros (test code = 429) 73 % % Lymphs (test code = 430) 11 % % Monos (test code = 431) 11 % % Eos (test code = 432) 4 % % Baso (test code = 437) 1 % # Neutros (test code = 670) 3.57 1.78- 5.38 K/L # Lymphs (test code = 414) 0.55 1.32- 3.57 K/L L # Monos (test code = 415) 0.51 0.30- 0.82 K/L # Eos (test code = 416) 0.18 0.04- 0.54 K/L # Baso (test code = 417) 0.05 0.01- 0.08 K/L Immature Granulocytes-Relative (test code = 2801) 0 % 0-1 Lab Interpretation (test code = 24871-7) Abnormal [facility] W/PLT COUNT & AUTO [id number] 10:55:00* Test Item Value Reference Range Interpretation Comments WHITE BLOOD CELL COUNT (BEAKER) (test code = 775) 4.9 K/ L 3.5- 10.5 RED BLOOD CELL COUNT (BEAKER) (test code = 761) 2.74 M/ L 4.63-6 .08 L HEMOGLOBIN (BEAKER) (test code = 410) 8.5 GM/DL 13.7-17.5 L HEMATOCRIT (BEAKER) (test code = 411) 26.1 % 40.1-51.0 L MEAN CORPUSCULAR VOLUME (BEAKER) (test code = 753) 95.3 fL 79. 0-92.2 H MEAN CORPUSCULAR HEMOGLOBIN (BEAKER) (test code = 751) 31.0 pg 25.7-32.2 MEAN CORPUSCULAR HEMOGLOBIN CONC (BEAKER) (test code = 752) 32.6 GM/DL 32.3-36.5 RED CELL DISTRIBUTION WIDTH (BEAKER) (test code = 412) 15.7 % 11.6-14.4 H PLATELET COUNT (BEAKER) (test code = 756) 143 K/CU MM 150-450 L MEAN PLATELET VOLUME (BEAKER) (test code = 754) 9.0 fL 9.4-12 .4 L NUCLEATED RED BLOOD CELLS (BEAKER) (test code = 413) 0 /100 WBC 0 -0 NEUTROPHILS RELATIVE PERCENT (BEAKER) (test code = 429) 73 % LYMPHOCYTES RELATIVE PERCENT (BEAKER) (test code = 430) 11 % MONOCYTES RELATIVE PERCENT (BEAKER) (test code = 431) 11 % EOSINOPHILS RELATIVE PERCENT (BEAKER) (test code = 432) 4 % BASOPHILS RELATIVE PERCENT (BEAKER) (test code = 437) 1 % NEUTROPHILS ABSOLUTE COUNT (BEAKER) (test code = 670) 3.57 K/ L 1.78-5.38 LYMPHOCYTES ABSOLUTE COUNT (BEAKER) (test code = 414) 0.55 K/ L 1.32-3.57 L MONOCYTES ABSOLUTE COUNT (BEAKER) (test code = 415) 0.51 K/ L 0. 30-0.82 EOSINOPHILS ABSOLUTE COUNT (BEAKER) (test code = 416) 0.18 K/ L 0.04-0.54 BASOPHILS ABSOLUTE COUNT (BEAKER) (test code = 417) 0.05 K/ L 0. 01-0.08 IMMATURE GRANULOCYTES-RELATIVE PERCENT (BEAKER) (test code = 2801) 0 % 0-1 CT ABDOMEN/PELVIS [id number] 14:36:00 [place] [address] Patient Name: JUANITO ARGUETA MR #: [id number] : 1945 Age/Sex: 74/M Req #: [id number] Adm Physician: Ordered by: CEDRIC BLEVINS MD Report #: [id number] Location: CT Room/Bed: Procedure: [id number] CT/CT ABDOMEN/ PELVIS WO Exam Date: 12/30/19 Exam Time: 1400 REPORT STATUS: Signed EXAM: CT Abdomen and Pelvis WITHOUT intravenous contrast INDICATION: Renal calculi C OMPARISON: Renal ultrasound 12/17/2019, KUB 12/17/2019 TECHNIQUE: Abdomen and pelvis were scanned utilizing a multidetector helical scanner from the lung b ase to the pubic symphysis without administration of IV contrast. Coronal and sagittal reformations were obtained. IV CONTRAST: None ORAL CONTRAS T: None COMPLICATIONS: None RADIATION DOSE: Total DLP: 825 mGy*cm Dose modulation, iterative reconstruction, and/or weight based a djustment of the mA/kV was utilized to reduce the radiation dose to as low as reasonably achievable. FINDINGS: LOWER THORAX: Bibasilar dependent sub segmental atelectasis. Coronary artery atherosclerotic calcifications. HE PATOBILIARY: No focal liver lesions. Unremarkable gallbladder. SPLEEN: No s plenomegaly. PANCREAS: No focal masses or ductal dilatation. ADRENALS: No adrenal nodules. KIDNEYS/URETERS: 2 mm right lower pole nonobstructive shae al calculi. No left renal calculi. No hydronephrosis or hydroureter. PELVIC ORGANS/BLADDER: The prostate measures 5.5 x 3.4 x 4.2 cm (volume estimate of 4 1 cc). PERITONEUM / RETROPERITONEUM: No free air or fluid. LYMPH NODES: N o lymphadenopathy. VESSELS: Moderate scattered atherosclerotic calcifications of the nonaneurysmal abdominal aorta and major branches. GI TRACT: No abn ormal bowel thickening. No bowel obstruction. Increased stool burden throughou t the colon. BONES AND SOFT TISSUES: No acute osseous injury. No suspicious lytic or blastic lesions. IMPRESSION: 2 mm nonobstructive right lower pole renal calculi. No hydronephrosis or hydroureter. Prostatomegaly. Signed by: Carl Pringle MD on 12/30/2019 2:42 PM Dictated By: CARL PRINGLE MD 1442 Transcribed By : LORI on 12/30/19 1442 COPY TO: CEDRIC BLEVINS MD RENAL RETROPERITONEAL [id number] 09:34:00 [place] [address] Patient Name: JUANITO ARGUETA MR #: [id number] : 1945 Age/Sex: 74/M Req #: [id number] [facility] Physician: Ordered by: CEDRIC BLEVINS MD Report #: [id number] Location: Room/Bed: Procedure: [id number] US/US RENAL RE TROPERITONEAL COMP Exam Date: 12/17/19 Exam Time: REPORT STATUS: Signed Renal u ltrasound Comparison: 09/14/2012 Clinical History: UTI Technique: Sonographic evaluation of the kidneys was performed. Multiple images were s ubmitted for interpretation, using a low-frequency curved transducer. Right kidney: The kidney measures 9.7 x 6.2 x 5 cm. The cortical echogenicity is w ithin normal limits. The cortex measures 1.6 cm. There is no evidence of a f ocal mass. There is no evidence of hydronephrosis. There is no evidence of a shadowing stone. There is no evidence of a cyst. There is no evidence of a perinephric fluid collection. Flow is visualized to the right kidney. Le ft kidney: The kidney measures 9.9 x 5.6 x 4.9 cm cm. The cortical echogenici ty is within normal limits. The cortex measures 1.8 cm. There is no evidence of a focal mass. There is no evidence of hydronephrosis. There is no eviden ce of a shadowing stone. There is ultrasonographic evidence of a simple midpo le renal cyst measuring approximately 0.8 cm. There is no evidence of a perin ephric fluid collection. Flow is visualized to the left kidney. Surve y images of the bladder demonstrate no abnormality. The post void residual is 109.1 cc. The prostate gland measures 2.6 x 2.6 x 3.2 cm with a volume of 1 1.3 cc. Impression: No structural abnormality of the visualized kidney an d parts of the urinary tract. No calculi. No hydronephrosis. Signed by: Esteban Rose MD on 12/17/2019 9:38 AM Dictated By: DANNY ROSE MD El ectronically Signed By: DANNY ROSE MD on 12/20/19848 Transcribed By: JACK SOLO on 12/20/19848 COPY TO: CEDRIC BLEVINS MD US PELVIC (NON OB) PÉREZ OR [id number] 09:34:00 [place] [address] Patient Name: JUANITO ARGUETA MR #: [id number] : 1945 Age/Sex: 74/M Req #: [id number] Adm Physician: Ordered by: CEDRIC BLEVINS MD Report #: [id number] Location: Room/Bed: Procedure: [id number] US/US PELVIC ( NON OB) PÉREZ OR F/U Exam Date: 12/17/19 Exam Time: 08 57 REPORT STATUS: Signed Renal u ltrasound Comparison: 09/14/2012 Clinical History: UTI Technique: Sonographic evaluation of the kidneys was performed. Multiple images were s ubmitted for interpretation, using a low-frequency curved transducer. Right kidney: The kidney measures 9.7 x 6.2 x 5 cm. The cortical echogenicity is w ithin normal limits. The cortex measures 1.6 cm. There is no evidence of a f ocal mass. There is no evidence of hydronephrosis. There is no evidence of a shadowing stone. There is no evidence of a cyst. There is no evidence of a perinephric fluid collection. Flow is visualized to the right kidney. Le ft kidney: The kidney measures 9.9 x 5.6 x 4.9 cm cm. The cortical echogenici ty is within normal limits. The cortex measures 1.8 cm. There is no evidence of a focal mass. There is no evidence of hydronephrosis. There is no eviden ce of a shadowing stone. There is ultrasonographic evidence of a simple midpo le renal cyst measuring approximately 0.8 cm. There is no evidence of a perin ephric fluid collection. Flow is visualized to the left kidney. Surve y images of the bladder demonstrate no abnormality. The post void residual is 109.1 cc. The prostate gland measures 2.6 x 2.6 x 3.2 cm with a volume of 1 1.3 cc. Impression: No structural abnormality of the visualized kidney an d parts of the urinary tract. No calculi. No hydronephrosis. Signed by: Esteban Rose MD on 12/17/2019 9:38 AM Dictated By: DANNY ROSE MD El ectronically Signed By: DANNY ROSE MD on 12/20/19848 Transcribed By: COM SOLO on 12/20/19848 COPY TO: CEDRIC BLEVINS MD ABDOMEN-1VIEW (KUB) 2019-12-17 09:26:00 [place] [address] Patient Name: JUANITO ARGUETA MR #: [id number] : 1945 Age/Sex: 74/M Req #: [id number] Adm Physician: Ordered by: CEDRIC BLEVINS MD Report #: [id number] Location: US Room/Bed: Procedure: [id number] DX/ABDOMEN-1VI EW (KUB) Exam Date: 12/17/19 Exam Time: 0830 REPORT STATUS: Signed X-ray KUB Hi story: Kidney stones Comparison: None. Findings: The study is submitte d on 2 images. There is presence of at least 3 calcific densities overlying th e right kidney. One measures approximately 7.4 mm. The other measures approxim ately 20 mm. A third density measures 7 mm. There is no calcific density overl katherin the left kidney. There is no calcific density seen along the course of th e ureters. Multiple small pelvic densities most likely represent pelvic phlebo liths. Another density in the right iliac fossa overlies the:. Incidental findings: No aggressive bony lesions. Lung bases clear. Copious amounts of fe devin matter in the colon. Surgical clarke in the right inguinal fossa. Vascula r calcification. Impression: At least 3 right renal calculi as above. Signed by: Danny Rose MD on 12/17/2019 9:30 AM Dictated By: DANNY BAHENA MD 9 Transcr ibed By: LORI on 12/17/19929 COPY TO: CEDRIC BLEVINS MD Us duplex venous lower [id number] 14:20:00Interface, Radiology Results In - 11/08/2019 2:20 PM CDT Vascular Ultrasound Laboratory Lower Extremity Venous Report [id number] [place] [address] Pat.Name: JUANITO ARGUETA Pat.ID: [id number] .Date: 11/08/2019 Refer.MD: RUEL PARK MD Exam Time: 11:24:00 AM Study Type:LE Venous Height: 67in Weight: 177lb BSA: 1.92 m2 Age: 11 1945,89Y Sex: MALE Sonogrphr: Aarti Harris RVT Pat. Stat.:Outpatient Tape Vol: JJ, CPT - 4: 60903 Echo Event ID:[id number] Order ID: [id number] Reason for Study:Follow up on history of DVT in RLE. History of PE.Procedures: Colorflow, Grayscale/2D, Pulsed wave DopplerRace: C -- SUMMARY: * Normal Reflux Criteria: < 0.5 seconds * Abnormal Reflux Criteria: > or equal to 0.5 secondsDUPLEX SCAN OBSERVATIONS Deep Veins Superficial Veins Right Left Right LeftEIV GSV (prox) Normal CFV Normal Normal (above knee)F emoral Normal GSV (dist) Normal Profunda Normal (below knee)Popliteal Normal P T (prox) Normal SSV Normal PT (dist) Normal Peroneal Normal Gastrocs Normal RIGHT:There is normal compressibility with no evidence of echogenicmaterial not ed within the lumen of the visualized veins.Colorflow andDoppler signals are nor mal. LEFT:There is normal compressibility with no evidence of echogenicmaterial noted within the lumen of the common femoral vein.Colorflowand Doppler signals are normal. PRELIMINARY FINDINGS1. No evidence of venous thrombosis of visua lized veins.2. Incidental finding- enlarged lymph nodes seen in the right groinr egion.PHYSICIAN INTERPRETATION Venous examination of the right lower extremity a nd left groindemonstrated no evidence of venous thrombosis in the visualized ve ins. Normal compressibility and augmentation of all veins visualized. Incidental finding- enlarged lymph nodes seen in the right groinregion. FINDINGS: Signed 11/08/2019 02:20 PMPolo Flores MD, RPVIChildress Regional Medical Center [facility] 2019-11-08 13:13:06 Interface, Radiology Results 11/08/2019 1:16 PM CDTPROCEDURE: MN LUNG PERFUSION IMAGINGINDICATION: Pulmonary embolism. COMPARISON: No relevant comparison imaging.TECHNIQUE: The patient was injected with 5 mCi of Tc-99m MAA, IV. Planar images of the chest were obtained. FINDINGS: Small to moderate-sized defects are noted in the lung bases. No large size defects. IMPRESSION: 1. Low probability for acute PE.2. No evidence for significant chronic PE.[facility]-[id number] METABOLIC [id number] 08:23:00* Test Item Value Reference Range Interpretation Comments SODIUM (test code = NA) 139 mEq/L 134-147 N POTASSIUM (test code = K) 3.6 mEq/L 3.4-5.0 N CHLORIDE (test code = CL) 103 mEq/L 100-108 N CARBON DIOXIDE (test code = CO2) 30 mEq/L 21-33 N ANION GAP (test code = GAP) 10 0-20 N GLUCOSE (test code = GLU) 102 mg/dL 70-110 N BLOOD UREA NITROGEN (test code = BUN) 13 mg/dL 7-18 N GLOMERULAR FILTRATION RATE (test code = GFR) 73.2 70-80 N Units of measure = ml/min/1.73 m2 CREATININE (test code = CREAT) 1.0 mg/dL 0.6-1.3 N CALCIUM (test code = CA) 9.2 mg/dL 8.0-10.5 N CBC W/AUTO [id number] 07:24:00* Test Item Value Reference Range Interpretation Comments WHITE BLOOD CELL (test code = WBC) 6.79 x10 3/uL 4.5-11.0 N RED BLOOD CELL (test code = RBC) 3.78 x10 6/uL 4.00-5.60 L HEMOGLOBIN (test code = HGB) 11.6 g/dL 12.5-16.9 L HEMATOCRIT (test code = HCT) 36.0 % 37.5-50.7 L MEAN CELL VOLUME (test code = MCV) 95.2 fL 81.0-99.0 N MEAN CELL HGB (test code = MCH) 30.7 pg 27.0-33.0 N MEAN CELL HGB CONCETRATION (test code = MCHC) 32.2 g/dL 33.0-37. 0 L RED CELL DISTRIBUTION WIDTH CV (test code = RDW) 15.7 % 11.5- 14.5 H RED CELL DISTRIBUTION WIDTH SD (test code = RDW-SD) 54.2 fL 37 .0-54.0 H PLATELET COUNT (test code = PLT) 273 x10 3/uL 150-400 N MEAN PLATELET VOLUME (test code = MPV) 10.6 fL 7.0-9.0 H NEUTROPHIL % (test code = NT%) 57.3 % 56.0-77.0 N IMMATURE GRANULOCYTE % (test code = IG%) 0.3 % 0.0-2.0 N LYMPHOCYTE % (test code = LY%) 28.6 % 14.0-32.0 N MONOCYTE % (test code = MO%) 9.0 % 4.8-9.0 N EOSINOPHIL % (test code = EO%) 3.8 % 0.3-3.7 H BASOPHIL % (test code = BA%) 1.0 % 0.0-2.0 N NUCLEATED RBC % (test code = NRBC%) 0.0 % 0-0 N NEUTROPHIL # (test code = NT#) 3.89 x10 3/uL 2.0-7.6 N IMMATURE GRANULOCYTE # (test code = IG#) 0.02 x10 3/uL 0.00-0.03 N LYMPHOCYTE # (test code = LY#) 1.94 x10 3/uL 1.0-3.8 N MONOCYTE # (test code = MO#) 0.61 x10 3/uL 0.1-0.8 N EOSINOPHIL # (test code = EO#) 0.26 x10 3/uL 0.0-0.2 H BASOPHIL # (test code = BA#) 0.07 x10 3/uL 0.0-0.2 N NUCLEATED RBC # (test code = NRBC#) 0.00 x10 3/uL 0.0-0.1 N MANUAL DIFF REQUIRED (test code = MDIFF) NO PROTHROMBIN [id number] 05:52:00* Test Item Value Reference Range Interpretation Comments PROTHROMBIN TIME PATIENT (test code = PTP) 38.3 SECONDS 9.3-12.9 H INTERNATIONAL NORMAL RATIO (test code = INR) 3.4 0.8-1.2 H TARGET INR BY INDICATION Indication INR1. Prophylaxis of venous thrombosis 2.0 - 3.0 (orthopedic surgery), Prophylaxis of venous thrombosis (other than high-risk surgery), Treatment of Deep Vein Thrombosis/Pulmonary Embolism, Prevention of systemic embolism - Tissue heart valves, Acute Myocardial Infarction (to prevent systemic embolism), Valvular heart disease, Atrial Fibrillation, Bileaflet mechanical valve in aortic position.2. Mechanical prosthetic valves (high risk), 2.5 - 3.5 Presence of Lupus Anticoagulant or Antiphospholipid Antibodies, Prevention of systemic embolism - Acute Myocardial Infarction (to prevent recurrent infarct). COMMENTS: INR X 10 DAYSBASIC METABOLIC [id number] 04:43:00* Test Item Value Reference Range Interpretation Comments SODIUM (test code = NA) 141 mEq/L 134-147 N POTASSIUM (test code = K) 3.6 mEq/L 3.4-5.0 N CHLORIDE (test code = CL) 108 mEq/L 100-108 N CARBON DIOXIDE (test code = CO2) 27 mEq/L 21-33 N ANION GAP (test code = GAP) 10 0-20 N GLUCOSE (test code = GLU) 87 mg/dL 70-110 N BLOOD UREA NITROGEN (test code = BUN) 11 mg/dL 7-18 N GLOMERULAR FILTRATION RATE (test code = GFR) 94.8 70-80 H Units of measure = ml/min/1.73 m2 CREATININE (test code = CREAT) 0.8 mg/dL 0.6-1.3 N CALCIUM (test code = CA) 8.7 mg/dL 8.0-10.5 N PROTHROMBIN [id number] 04:42:00* Test Item Value Reference Range Interpretation Comments PROTHROMBIN TIME PATIENT (test code = PTP) 39.2 SECONDS 9.3-12.9 H INTERNATIONAL NORMAL RATIO (test code = INR) 3.5 0.8-1.2 H TARGET INR BY INDICATION Indication INR1. Prophylaxis of venous thrombosis 2.0 - 3.0 (orthopedic surgery), Prophylaxis of venous thrombosis (other than high-risk surgery), Treatment of Deep Vein Thrombosis/Pulmonary Embolism, Prevention of systemic embolism - Tissue heart valves, Acute Myocardial Infarction (to prevent systemic embolism), Valvular heart disease, Atrial Fibrillation, Bileaflet mechanical valve in aortic position.2. Mechanical prosthetic valves (high risk), 2.5 - 3.5 Presence of Lupus Anticoagulant or Antiphospholipid Antibodies, Prevention of systemic embolism - Acute Myocardial Infarction (to prevent recurrent infarct). COMMENTS: INR X 10 DAYSCBC W/AUTO [id number] 04:42:00* Test Item Value Reference Range Interpretation Comments WHITE BLOOD CELL (test code = WBC) 6.40 x10 3/uL 4.5-11.0 N RED BLOOD CELL (test code = RBC) 3.84 x10 6/uL 4.00-5.60 L HEMOGLOBIN (test code = HGB) 11.6 g/dL 12.5-16.9 L HEMATOCRIT (test code = HCT) 36.4 % 37.5-50.7 L MEAN CELL VOLUME (test code = MCV) 94.8 fL 81.0-99.0 N MEAN CELL HGB (test code = MCH) 30.2 pg 27.0-33.0 N MEAN CELL HGB CONCETRATION (test code = MCHC) 31.9 g/dL 33.0-37. 0 L RED CELL DISTRIBUTION WIDTH CV (test code = RDW) 15.8 % 11.5- 14.5 H RED CELL DISTRIBUTION WIDTH SD (test code = RDW-SD) 54.4 fL 37 .0-54.0 H PLATELET COUNT (test code = PLT) 234 x10 3/uL 150-400 N MEAN PLATELET VOLUME (test code = MPV) 9.9 fL 7.0-9.0 H NEUTROPHIL % (test code = NT%) 53.6 % 56.0-77.0 L IMMATURE GRANULOCYTE % (test code = IG%) 0.3 % 0.0-2.0 N LYMPHOCYTE % (test code = LY%) 31.3 % 14.0-32.0 N MONOCYTE % (test code = MO%) 7.3 % 4.8-9.0 N EOSINOPHIL % (test code = EO%) 6.6 % 0.3-3.7 H BASOPHIL % (test code = BA%) 0.9 % 0.0-2.0 N NUCLEATED RBC % (test code = NRBC%) 0.0 % 0-0 N NEUTROPHIL # (test code = NT#) 3.43 x10 3/uL 2.0-7.6 N IMMATURE GRANULOCYTE # (test code = IG#) 0.02 x10 3/uL 0.00-0.03 N LYMPHOCYTE # (test code = LY#) 2.00 x10 3/uL 1.0-3.8 N MONOCYTE # (test code = MO#) 0.47 x10 3/uL 0.1-0.8 N EOSINOPHIL # (test code = EO#) 0.42 x10 3/uL 0.0-0.2 H BASOPHIL # (test code = BA#) 0.06 x10 3/uL 0.0-0.2 N NUCLEATED RBC # (test code = NRBC#) 0.00 x10 3/uL 0.0-0.1 N MANUAL DIFF REQUIRED (test code = MDIFF) NO COMPREHENSIVE METABOLIC [id number] 04:32:00* Test Item Value Reference Range Interpretation Comments SODIUM (test code = NA) 142 mEq/L 134-147 N POTASSIUM (test code = K) 3.6 mEq/L 3.4-5.0 N CHLORIDE (test code = CL) 110 mEq/L 100-108 H CARBON DIOXIDE (test code = CO2) 26 mEq/L 21-33 ANION GAP (test code = GAP) 10 0-20 N GLUCOSE (test code = GLU) 87 mg/dL 70-110 BLOOD UREA NITROGEN (test code = BUN) 13 mg/dL 7-18 GLOMERULAR FILTRATION RATE (test code = GFR) 94.8 70-80 H Units of measure = ml/min/1.73 m2 CREATININE (test code = CREAT) 0.8 mg/dL 0.6-1.3 TOTAL PROTEIN (test code = PROT) 7.2 g/dL 6.4-8.2 N ALBUMIN (test code = ALB) 3.10 g/dL 3.4-5.0 L CALCIUM (test code = CA) 9.1 mg/dL 8.0-10.5 N BILIRUBIN TOTAL (test code = BILT) 0.6 MG/DL <1.5 SGOT/AST (test code = AST) 20 IUnit/L 15-37 N SGPT/ALT (test code = ALT) 37 IUnit/L 15-65 N ALKALINE PHOSPHATASE TOTAL (test code = ALKP) 114 IUnit/L 20-125 N PROTHROMBIN [id number] 04:20:00* Test Item Value Reference Range Interpretation Comments PROTHROMBIN TIME PATIENT (test code = PTP) 31.8 SECONDS 9.3-12.9 H INTERNATIONAL NORMAL RATIO (test code = INR) 2.9 0.8-1.2 H TARGET INR BY INDICATION Indication INR1. Prophylaxis of venous thrombosis 2.0 - 3.0 (orthopedic surgery), Prophylaxis of venous thrombosis (other than high-risk surgery), Treatment of Deep Vein Thrombosis/Pulmonary Embolism, Prevention of systemic embolism - Tissue heart valves, Acute Myocardial Infarction (to prevent systemic embolism), Valvular heart disease, Atrial Fibrillation, Bileaflet mechanical valve in aortic position.2. Mechanical prosthetic valves (high risk), 2.5 - 3.5 Presence of Lupus Anticoagulant or Antiphospholipid Antibodies, Prevention of systemic embolism - Acute Myocardial Infarction (to prevent recurrent infarct). COMMENTS: INR X 10 DAYSCBC W/AUTO [id number] 04:18:00* Test Item Value Reference Range Interpretation Comments WHITE BLOOD CELL (test code = WBC) 6.29 x10 3/uL 4.5-11.0 RED BLOOD CELL (test code = RBC) 3.77 x10 6/uL 4.00-5.60 L HEMOGLOBIN (test code = HGB) 11.6 g/dL 12.5-16.9 L HEMATOCRIT (test code = HCT) 36.5 % 37.5-50.7 L MEAN CELL VOLUME (test code = MCV) 96.8 fL 81.0-99.0 MEAN CELL HGB (test code = MCH) 30.8 pg 27.0-33.0 N MEAN CELL HGB CONCETRATION (test code = MCHC) 31.8 g/dL 33.0-37. 0 L RED CELL DISTRIBUTION WIDTH CV (test code = RDW) 16.4 % 11.5- 14.5 H RED CELL DISTRIBUTION WIDTH SD (test code = RDW-SD) 58.6 fL 37 .0-54.0 H PLATELET COUNT (test code = PLT) 227 x10 3/uL 150-400 N MEAN PLATELET VOLUME (test code = MPV) 9.5 fL 7.0-9.0 H NEUTROPHIL % (test code = NT%) 49.8 % 56.0-77.0 L IMMATURE GRANULOCYTE % (test code = IG%) 0.2 % 0.0-2.0 N LYMPHOCYTE % (test code = LY%) 35.5 % 14.0-32.0 H MONOCYTE % (test code = MO%) 7.6 % 4.8-9.0 N EOSINOPHIL % (test code = EO%) 5.9 % 0.3-3.7 H BASOPHIL % (test code = BA%) 1.0 % 0.0-2.0 N NUCLEATED RBC % (test code = NRBC%) 0.0 % 0-0 N NEUTROPHIL # (test code = NT#) 3.14 x10 3/uL 2.0-7.6 N IMMATURE GRANULOCYTE # (test code = IG#) 0.01 x10 3/uL 0.00-0.03 N LYMPHOCYTE # (test code = LY#) 2.23 x10 3/uL 1.0-3.8 N MONOCYTE # (test code = MO#) 0.48 x10 3/uL 0.1-0.8 N EOSINOPHIL # (test code = EO#) 0.37 x10 3/uL 0.0-0.2 H BASOPHIL # (test code = BA#) 0.06 x10 3/uL 0.0-0.2 N NUCLEATED RBC # (test code = NRBC#) 0.00 x10 3/uL 0.0-0.1 N MANUAL DIFF REQUIRED (test code = MDIFF) NO PROTHROMBIN [id number] 14:21:00* Test Item Value Reference Range Interpretation Comments PROTHROMBIN TIME PATIENT (test code = PTP) 30.2 SECONDS 9.3-12.9 H INTERNATIONAL NORMAL RATIO (test code = INR) 2.7 0.8-1.2 H TARGET INR BY INDICATION Indication INR1. Prophylaxis of venous thrombosis 2.0 - 3.0 (orthopedic surgery), Prophylaxis of venous thrombosis (other than high-risk surgery), Treatment of Deep Vein Thrombosis/Pulmonary Embolism, Prevention of systemic embolism - Tissue heart valves, Acute Myocardial Infarction (to prevent systemic embolism), Valvular heart disease, Atrial Fibrillation, Bileaflet mechanical valve in aortic position.2. Mechanical prosthetic valves (high risk), 2.5 - 3.5 Presence of Lupus Anticoagulant or Antiphospholipid Antibodies, Prevention of systemic embolism - Acute Myocardial Infarction (to prevent recurrent infarct). COMMENTS: INR X 10 DAYS- MRI BRAIN WO/W [id number] 13:24:00 FAX: Berny Granda [phone] [place]: St: [facility] FAX: Gardenia Sánchez [phone] Name: JUANITO ARGUETA [facility] : 1945 Age/S: 74/M [address] [place] [address] Unit #: [id number] Loc: [place] [address] Phys: Gardenia Hancock MD Acct: [id number] Dis Date: Status: ADM IN PHONE #: [phone] Exam Date: 10/05/2019 1413 FAX #: [phone] Reason: new onset seizures EXAMS: CPT CODE: [id number] MRI BRAIN WO/W CONT 57447 MRI brain without and with contrast 10/05/2019 HIST ORY: New onset seizure. PROCEDURE: Multiplanar multisequence imagi ng of the brain was performed without and with contrast. 16 mL of gadolin ium were injected intravenously Comparison is made to CT per formed 10/04/2019 FINDINGS: There is mild atrophy. There are moder ate areas of increased FLAIR signal in the cerebral white matter. There i s encephalomalacia involving the left temporal lobe and left parietal lobe. Left lateral craniotomy defect is noted. There are areas of curv ilinear increased T1 signal within the left temporal lobe and left parieta l lobe. No midline shift or hydrocephalus is present. The visualized mas toid air cells are clear. There is no paranasal sinus air-fluid level. T he expected intracranial flow voids are present. Diffusion-weighted imagi ng demonstrates no acute ischemic event. No evidence for acute infarct is present. Blooming artifact in the left parietal lobe and left temporal l obe is noted. No abnormal enhancement is present on post contrast imaging . IMPRESSION: 1. 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 This may represent an epileptoge min focus. 2. No acute hemorrhage. No new infarct. 3. No abno rmal enhancement. 4. Baseline mild atrophy and moderate chronic microva scular ischemic changes. SL: [id number] at 1324 Reported and sig luis by: Drew Mansfield M.D. CC: Berny Palomino; Gardenia Chowdhury Technologist: Leonardo Golden, RT(R)(CT)(MR) Trnscrd Date/Time/By: 10/05/2019 (1324) : By: [email or web address] Orig Tonya nt D/T: S: 10/05/2019 (7643) PAGE 1 Signed Report URINALYSIS [id number] 23:26:00* Test Item Value Reference Range Interpretation Comments UA COLOR (test code = COLU) YELLOW YEL/STRAW UA APPEARANCE (test code = APPU) SL CLOUDY CLEAR UA GLUCOSE DIPSTICK (test code = DGLUU) NEGATIVE NEGATIVE UA BILIRUBIN DIPSTICK (test code = BILU) NEGATIVE NEGATIVE UA KETONE DIPSTICK (test code = KETU) TRACE NEGATIVE A UA SPECIFIC GRAVITY (test code = SGU) 1.015 1.005-1.030 N UA BLOOD DIPSTICK (test code = BRENDA) NEGATIVE NEGATIVE UA PH DIPSTICK (test code = NAFISA) 5.0 5.0-7.0 N UA PROTEIN DIPSTICK (test code = PROU) 1+ NEGATIVE A UA UROBILINIOGEN DIPSTICK (test code = URO) 0.2 mg/dL 0.2-1.0 UA NITRITE DIPSTICK (test code = SHANTI) NEGATIVE NEGATIVE UA LEUKOCYTE ESTERASE DIPSTICK (test code = LEUU) NEGATIVE NEGA TIVE UA RBC (test code = RBCU) 4-10 RBC/HPF 0-3 UA WBC NO REFLEX (test code = WBCUCL) 0-3 WBC/HPF 0-3 UA BACTERIA (test code = BACU) TRACE /HPF NONE SEEN UA SQUAMOUS CELLS (test code = SQU) NONE SEEN /HPF NONE SEEN UA MUCUS (test code = MUCU) TRACE /LPF NONE SEEN COMPREHENSIVE METABOLIC [id number] 22:57:00* Test Item Value Reference Range Interpretation Comments SODIUM (test code = NA) 140 mEq/L 134-147 N POTASSIUM (test code = K) 3.6 mEq/L 3.4-5.0 N CHLORIDE (test code = CL) 106 mEq/L 100-108 N CARBON DIOXIDE (test code = CO2) 13 mEq/L 21-33 L ANION GAP (test code = GAP) 25 0-20 H GLUCOSE (test code = GLU) 155 mg/dL 70-110 H BLOOD UREA NITROGEN (test code = BUN) 23 mg/dL 7-18 H GLOMERULAR FILTRATION RATE (test code = GFR) 45.9 70-80 L Units of measure = ml/min/1.73 m2 CREATININE (test code = CREAT) 1.5 mg/dL 0.6-1.3 H TOTAL PROTEIN (test code = PROT) 7.8 g/dL 6.4-8.2 N ALBUMIN (test code = ALB) 3.40 g/dL 3.4-5.0 N CALCIUM (test code = CA) 9.2 mg/dL 8.0-10.5 N BILIRUBIN TOTAL (test code = BILT) 0.4 MG/DL <1.5 N SGOT/AST (test code = AST) 24 IUnit/L 15-37 N SGPT/ALT (test code = ALT) 45 IUnit/L 15-65 N ALKALINE PHOSPHATASE TOTAL (test code = ALKP) 123 IUnit/L 20-125 N [id number] 22:57:00* Test Item Value Reference Range Interpretation Comments TROPONIN-I (test code = TROPI) < 0.015 ng/mL 0.000-0.045 N Negative: <= 0.045 Positive: >= 0.046 Correlation with serial results, other cardiac markers andclinical findings is necessary to determine the clinicalsignificance of this result. Results using different methodologies should not be comparedto one another as quantitative results may vary by method. - CT HEAD/BRAIN W/O [id number] 22:52:00 Name: BERNY ARGUETA [facility] : 1945 Age/S: 74 / M [address] [place] [address] Unit #: [id number] Loc: [place] [address] Phys: Gopal Cooper MD Acct: [id number] Dis Date: Status: PRE ER PHONE #: [phone] Exam Date: 10/04/20192226 FAX #: [phone] Reason: new onset seizure EXAMS: CPT CODE: [id number] CT HEAD/BRAIN W/O CONT 63470 Clinical Indication: New-onset seizures Comparison: None TECHNIQUE: CT images were obtained from the foramen magnum to the vertex without the use of intravenous contrast on a multidetector CT. Coronal and sagittal reconstructions were obtained. CT imaging performed at this location utilizes radiation dose optimization techniques which include one or more of the following: - Automated exposure control -Adjustment of the mA and/or kV according to patient size -Use of iterative reconstruction technique CT Radiation Dose DLP 472.1 mGy-cm FINDINGS: BRAIN PARENCHYMA: Old postsurgical changes of left frontoparietal and temporal craniotomy with underlying cystic encephalomalacia with surrounding gliosis in the left temporoparietal lobe. Mild c ex vacuo dilatation of the temporal and posterior horn of the left lateral ventricle. There is generalized brain parenchymal atrophy related to the patient's age. Moderate nonspecific periventricular white matter disease changes are noted. Atherosclerotic calcifications are present within the carotid siphons and distal vertebral arteries. There are no focal mass lesions on this noncontrast head CT. There is no mass effect, midline shift or edema. There are no intra-axial or extra-axial fluid collections, intraventricular or intraparenchymal hemorrhage. There is no noncontrast CT evidence of a subacute stroke. The pineal, sellar, brainstem, cerebellum and skull base regions appear u nremarkable. Bilateral pseudophakia. The paranasal sinuses are un remarkable. The mastoid air cells are clear. If there is fu rther concern for intracranial pathology or acute stroke, MRI of the brain may be performed for complete assessment. IMPRESSION: 1. Old postsurgical changes of left frontoparietal and temporal craniotomy with changes of underlying cystic encephalomalacia and surr ounding gliosis in the left temporoparietal lobe and associated volume l oss. 2. Moderate chronic microvascular ischemic changes with generalize d cerebral parenchymal atrophy. PAGE 1 Signed Report (CONTINUED) Name: BERNY ARGUETA [facility] : 1945 Age/S: 74 / M [address] [facility] Unit #: [id number] Loc: [place] [address] Phys: Gopal Cooper MD Acct: [id number] Dis Date: Status: PRE ER PHONE #: [phone] Exam Date: 10/04/2019 FAX #: [phone] Reason: new onset seizure EXAMS: CPT CODE: [id number] CT HEAD/BRAIN W/O CONT 45855 <Continued> SL: APATIL-H at 2252 Reported and signed by: Radha Singh M.D. CC: Gopal Cooper MD Technologist:Meenu Belser, RT(R) CTDI: DLP: Trnscb Date/Time: 10/04/2019 (136) [email or web address] Orig Print D/T: S: 10/04/2019 (5695) PAGE 2 Signed Report CBC W/AUTO [id number] 22:50:00* Test Item Value Reference Range Interpretation Comments WHITE BLOOD CELL (test code = WBC) 14.04 x10 3/uL 4.5-11.0 H RED BLOOD CELL (test code = RBC) 3.80 x10 6/uL 4.00-5.60 L HEMOGLOBIN (test code = HGB) 11.6 g/dL 12.5-16.9 L HEMATOCRIT (test code = HCT) 38.7 % 37.5-50.7 N MEAN CELL VOLUME (test code = MCV) 101.8 fL 81.0-99.0 H MEAN CELL HGB (test code = MCH) 30.5 pg 27.0-33.0 N MEAN CELL HGB CONCETRATION (test code = MCHC) 30.0 g/dL 33.0-37. 0 L RED CELL DISTRIBUTION WIDTH CV (test code = RDW) 16.3 % 11.5- 14.5 H RED CELL DISTRIBUTION WIDTH SD (test code = RDW-SD) 61.1 fL 37 .0-54.0 H PLATELET COUNT (test code = PLT) 282 x10 3/uL 150-400 N MEAN PLATELET VOLUME (test code = MPV) 10.1 fL 7.0-9.0 H NEUTROPHIL % (test code = NT%) 33.1 % 56.0-77.0 L IMMATURE GRANULOCYTE % (test code = IG%) 0.3 % 0.0-2.0 N LYMPHOCYTE % (test code = LY%) 53.1 % 14.0-32.0 H MONOCYTE % (test code = MO%) 8.4 % 4.8-9.0 N EOSINOPHIL % (test code = EO%) 4.3 % 0.3-3.7 H BASOPHIL % (test code = BA%) 0.8 % 0.0-2.0 N NUCLEATED RBC % (test code = NRBC%) 0.0 % 0-0 N NEUTROPHIL # (test code = NT#) 4.66 x10 3/uL 2.0-7.6 N IMMATURE GRANULOCYTE # (test code = IG#) 0.04 x10 3/uL 0.00-0.03 H LYMPHOCYTE # (test code = LY#) 7.45 x10 3/uL 1.0-3.8 H MONOCYTE # (test code = MO#) 1.18 x10 3/uL 0.1-0.8 H EOSINOPHIL # (test code = EO#) 0.60 x10 3/uL 0.0-0.2 H BASOPHIL # (test code = BA#) 0.11 x10 3/uL 0.0-0.2 N NUCLEATED RBC # (test code = NRBC#) 0.00 x10 3/uL 0.0-0.1 N MANUAL DIFF REQUIRED (test code = MDIFF) NO SLIDE REVIEWED, CONSISTENT WITH AUTO DIFF. COMPREHENSIVE METABOLIC [id number] 22:49:00* Test Item Value Reference Range Interpretation Comments SODIUM (test code = NA) mEq/L 134-147 POTASSIUM (test code = K) mEq/L 3.4-5.0 CHLORIDE (test code = CL) mEq/L 100-108 CARBON DIOXIDE (test code = CO2) mEq/L 21-33 ANION GAP (test code = GAP) 0-20 GLUCOSE (test code = GLU) mg/dL 70-110 BLOOD UREA NITROGEN (test code = BUN) mg/dL 7-18 GLOMERULAR FILTRATION RATE (test code = GFR) 70-80 CREATININE (test code = CREAT) mg/dL 0.6-1.3 TOTAL PROTEIN (test code = PROT) g/dL 6.4-8.2 ALBUMIN (test code = ALB) g/dL 3.4-5.0 CALCIUM (test code = CA) mg/dL 8.0-10.5 BILIRUBIN TOTAL (test code = BILT) MG/DL <1.5 SGOT/AST (test code = AST) IUnit/L 15-37 SGPT/ALT (test code = ALT) IUnit/L 15-65 ALKALINE PHOSPHATASE TOTAL (test code = ALKP) IUnit/L 20-125 [id number] 22:49:00* Test Item Value Reference Range Interpretation Comments TROPONIN-I (test code = TROPI) < 0.015 ng/mL 0.000-0.045 N Negative: <= 0.045 Positive: >= 0.046 Correlation with serial results, other cardiac markers andclinical findings is necessary to determine the clinicalsignificance of this result. Results using different methodologies should not be comparedto one another as quantitative results may vary by method. - XR CHEST 1 [id number] 22:41:00 FAX: Gopal Cooper MD [phone] [place]: St: PRE Name: BERNY URBINA [facility] : [birth year] Age/S: 74/M [address] [place] [address] Unit #: [id number] Loc: [address] [address] Phys: Gopal Cooper MD Acct: [id number] Dis Date: Status: PRE ER PHONE #: [phone] Exam Date: 10/04/20192240 FAX #: [phone] Reason: new onset seizure EXAMS: CPT CODE: [id number] XR CHEST 1 V 10577 Portable single view AP chest INDICATION: New onset seizure. Comparison: None. FINDINGS: The cardiomediastinal silhouette is enlarged. Lungs are mildly underinflated with bibasilar linear atelectasis. Lungs are otherwi se clear. Costophrenic angles are sharp. No suspicious osseous abnormality is seen. IMPRESSION: No evidence for acute cardiopulmonary dise ase. SL: SG-H Electronically S igned by Milvia Knapp on 10/04/2019 at 2241 Reported and signed by: Jose Knapp M.D. CC: Gopal Cooper MD Technologist: RT João(R) Trnscrd Date/Time/By: 10/04/2019 (2240) : By: [email or web address] Orig Print D/T: S: (5679) PAGE 1 Signed Repo rt PROTHROMBIN [id number] 22:40:00* Test Item Value Reference Range Interpretation Comments PROTHROMBIN TIME PATIENT (test code = PTP) 27.8 SECONDS 9.3-12.9 H INTERNATIONAL NORMAL RATIO (test code = INR) 2.5 0.8-1.2 H TARGET INR BY INDICATION Indication INR1. Prophylaxis of venous thrombosis 2.0 - 3.0 (orthopedic surgery), Prophylaxis of venous thrombosis (other than high-risk surgery), Treatment of Deep Vein Thrombosis/Pulmonary Embolism, Prevention of systemic embolism - Tissue heart valves, Acute Myocardial Infarction (to prevent systemic embolism), Valvular heart disease, Atrial Fibrillation, Bileaflet mechanical valve in aortic position.2. Mechanical prosthetic valves (high risk), 2.5 - 3.5 Presence of Lupus Anticoagulant or Antiphospholipid Antibodies, Prevention of systemic embolism - Acute Myocardial Infarction (to prevent recurrent infarct). CBC W/AUTO [id number] 22:32:00* Test Item Value Reference Range Interpretation Comments WHITE BLOOD CELL (test code = WBC) 14.04 x10 3/uL 4.5-11.0 H RED BLOOD CELL (test code = RBC) 3.80 x10 6/uL 4.00-5.60 L HEMOGLOBIN (test code = HGB) 11.6 g/dL 12.5-16.9 L HEMATOCRIT (test code = HCT) 38.7 % 37.5-50.7 N MEAN CELL VOLUME (test code = MCV) 101.8 fL 81.0-99.0 H MEAN CELL HGB (test code = MCH) 30.5 pg 27.0-33.0 N MEAN CELL HGB CONCETRATION (test code = MCHC) 30.0 g/dL 33.0-37. 0 L RED CELL DISTRIBUTION WIDTH CV (test code = RDW) 16.3 % 11.5- 14.5 H RED CELL DISTRIBUTION WIDTH SD (test code = RDW-SD) 61.1 fL 37 .0-54.0 H PLATELET COUNT (test code = PLT) 282 x10 3/uL 150-400 N MEAN PLATELET VOLUME (test code = MPV) 10.1 fL 7.0-9.0 H NEUTROPHIL % (test code = NT%) % 56.0-77.0 LYMPHOCYTE % (test code = LY%) % 14.0-32.0 NEUTROPHIL # (test code = NT#) x10 3/uL 2.0-7.6 LYMPHOCYTE # (test code = LY#) x10 3/uL 1.0-3.8 MANUAL DIFF REQUIRED (test code = IFF) Tissue [id number] 18:37:00* Test Item Value Reference Range Interpretation Comments Case Report (test code = 104) Surgical Pathology Repor t Case: [id number] Authorizing Provider: Carlos Mohan MD Collected: 06/21/2019 1056 Ordering Location: [place] [address] ICU Received: 06/21/2019 1103 Pathologist: Kelton Brewer MD Specimen: Soft Tissue, Other, left temporal hemorrhage DIAGNOSIS (test code = 3220) d3oycYRhDYKxv2txCDEejRIgVdJnZoTuXlUpRvqlgWCgZLtsfqLmQHiur7GuS1NpSbHdBYdmbwQpFGBx PnvcehxmJJQlULW7cdTxOHOtCYwkLPKpEIqcVn5xhHGqyMwtLyBhOTYub8rbirDVbteidEr9p8poNUWb GdA5oZTkYNafE9yqpqUqxORiFPLdDWr0pE35OBTyrC 0lfYZmROqkqrBoOwM0HAqnHPHqZpL9JIZifVAkNRZxM0zrSWSdBIpfMINrQDqoaUAuHKB2zMcbz9J9qH GpcNZwvAxoUbVcOdUzVNQGa0BvSIe8hRwaU1GuZGZdGiO0bBCvPZTnJVkmSQCkDMHearL5zV14JPyxnm F7wQHzx9Ylf46bn607uJ1zfRUeNGN9ZKYlZYUorVSt FOUbRZL4REIvwRCpL4w2IcVagSQgE2Y9XsQuySRzS1I5DfSkzXNaL8N7SpTbxLUoCXDvyEYnIc9iwQEj uBTqed9wxi10VBK7t0PjdZqcOLL9BJZ9SmEvZu9bcLRxZSZpXU5nWiVsvJVeBTElzd92qVwwNCfbbdCt vG1sClKxNKSywGLuQTGpPU5rtFMcVSJhsR2aymriZB YzRsTjunznSPKhoHwostNiBv9osQqyWBW3KPhdF5cpuB9nEvY1OWwyO9ccrD0uRAt0CNzddIA2MAHgzW 4pUQ5lflgqj9evJzIrIK9lhgtri6ccFtCyXF7gdjr3q7aiPjJxNW9mycnmu2tpJzGlITqpJUVxvqrgYO Kqe6DtfcyzGSRas8LlI9NwnFriF79rjSorN82kFCAy jVxwlO7bwBvnnO1eGbQoPkSbZUkaaTjefGIjzbmcUHkdqqStNRymtyhoHGCnCPifA3htZtNhQXFqnNci TCnmh9WhUCMfMZKzKvBrZjTLHU2dZXlOTnUbWGZPRC2WUVaiKQGCJO8FI6EHKNnuRA3SLZTNQUXWACLG [file] SDF0lO1yd4dms1UcGCqxQFF5SFXtx19tGNhyhhF0VKqkLe6eDoYsRKX5BCacKMV8fV== CPT Code(s) (test code = 3357) r3afcGYiQQYosNSaGpEiRIPdVDUwn7ffGNYztXDzByFaHxNyYtAdRwbnhBKfJXTmTbPid8uit075jMUi j2caUJUlSvT1hYNiFIJayARlG394HPQeZLktp4tqi9MrMHBdoQZsn9R4IWGUmrbseZx8uUioQ93vi1V5 FiomM7dsOSDwNETbG8ErJD2aZXXnWhe4WOP8BQD9RA QkRJTiP1VxRD5nUOWppYTfDCz2t7tujKnjZLJtQTL1p2fxYYujbaUdKG5cch0mkDk0y4kvnmSuSRNjQV JcpIAWXCJgF7DcuPqnKb6bwLj4rKpaCvhvJNG3Pfo1ZB8kdz64eph9kVgsKSSmnvysZxW0KAbjXTKpli grNKs7SXnzLLTpdUcqIKjvRQCloszoHEnnLIHgaDaj PEorXYXhFcfkXNgvLDBmOVY1RNxzb735UOT2LWsmn0cuz6dmvCLlPbg4GSYbIiJhJdmnZCjls4Eyj4pm BVGkiu7cCHK9sFKnnKmmn2A1cVFcKKVoyRDnljGiFYRpZsV7ZDnmJH7mob96PVHuGRU3qd5ssRIyqGpx eeSsvZVlTKtzI8BiJQSor094WKEtU6BsEAXla6P6ps QeYcBaDLKgmQU9tvH1EZZtXCr1cDDuwkZ1dlKzmJKkA6bzlY50PtLgtVDmU4ArvF76TkHneCUlF3AoiH 37OxLwsJSrD4ZkiV33SjExuAUmMDTjrDLnVa2ypVDaqMObo5MgvDPbMFcoQ22ne406XYChvzMxQ3jwbC QjcuibhNNzuwqmAQwzacI4NPYmKCHqQTalLYDdCNAm QhDdlZUhQwJkXmDhvRfcqPnoVWbsJeIfVARqTWniM5ysLiNeXsUyYPO2CKGwJLqcDFY6 CLINICAL HISTORY (test code = 3356) j0gayARzWJVvpLEdYwEbBOQkOOKtg9vtNNXriLOrYxPbXrAjLuSdVzkvaSIfLRQeImEuj5pcf513wZId f7xyTAHwUmU9iGMrHPYgyEXkQ821DKXbDJezj2ndz8OeOXFnkCPph2K4UQKThjuyhQs4iXkfH42sk1P3 RbrhO2tnDXPyGJtuINKkRBmkaXKdXIU5DMYlFLP1YD jmkaUhndQ0TSvmrKEcNeI7PHc6b6gahFcoLKWaSAG7q6alCJnivcQxME6ivf9doOe7f8ekiqIySLXjFO WrjWYZCADwM7DifAuhVn0fzIl2fRayIcryKFJ7Cun8YH4gvl49zul8cXndKWVwzstgIpO5LPogZHNfpk xsAKx0LEvvNRSkzQgnVAdmAANkdcivZMxzMCXwmCfu SKcfXSZqVwmlZOnhQQFbPCK5ABpmj848GHJ0CJhoi5khb9ruaTUeOvh7SFBuDsSvKfulPNvbk2Tae4qr SBEera8mJBM3lQPvxDosl9V5mVCvFTNcvOOdhjZdSVFdIwY5NJrtHY3gca99GFExZAU7wp9pkLSsjUmo sgDjeRXfEGlqF3IlGRNzm520SMCmS2NbMORzj7E5vg OxSvCkPTNvjSI9bgN2HWGdEIn9aOKhizW8nfKdcFFeM5gkoE38EqJpaSNzP9YkcU26AzKboHAyQ7ZepZ 78HeOspCMiX9ZjjC78SyVkvHPtKWHleTXwGc4tbHPisCZji6XgyYEyNYlmL93jk676BUGlfiCoV2efrA FpblxwbGFpblxmMFxmczIwXHFsXHBsYWluXGYwXGZz GbXsaHftlO5zOmKhKgHeBBJMyhUhFA3rZLHba8FfnQNcrELewh1fcHV4YVNdIBrpPGUuJBDdSCWznx5= SPECIMEN SOURCE (test code = 3377) m3nhlASaZNYzyQVeNrKqFCJlTAOmf2ghMRUdcAWvQmFePmThYjHwIhgipSSgOBAwEgJsp3bwj870aMPl w9ijZAEnJdQ2lFTeGERddUPiX775d8kad5jmclEvcJC1CKRsXZX8GJapoeUiymR7DYcwfUOjJcW4XKdj qxHwXHnzmlTdqjRaVxe8WIEuQ647CQP0kAaer0knPG G6ZSSiEQAcBqPlZm9dmLLfD947CXKdJIJUYZGscEs7ZKCqttThvxYsgUNSk243C286b7atEHLhwvFeqE uTzdjoy9yiK317QNGiiXCaimUlYcYzOEWacSTcjTU5BQHkBI4buvjnWgSpNM6lkwtlBpQqWB4sdcv2Xs UsUU9ekiwtQqYbZBdqTRZrkcvqRKYel7JnbbmuJH8a A7Lxl1U0zA6sfOKgJOQhpLHaUuJpEVIcfv9tkXJjASedb3QqDQY5qaU7uAGjeDRoNNJaIN96Bjnek1Rb NagqOIT6PWWjplNcs9Eez5enDxTqaoSkF8tlG0ShXETlELKzLDIvEeMeuhJav1Srs5ItzFIbeCm9b4ub KGApEDSjeDrgx7hcPSR6SBNnA8A6nCLrt9trYWkwJO YmaSB0rddqKGjsIRWxlzG3nogdIOflFMWmyUJ8xhppGEevPRPiMhL5dxvrQZazUMBqGAU6CZvsn050NS K3XXbxSdjcABvwZRDluwIfhaVmrJhdIFMpXHRnXEfbSFEdXEvbHAFrXSXzKfAsnDcbaRnhkC4pHqAjOe MpVCtgEF4lQLEkG3jnkTIhSLZbIRUjO4zsJrCvfB8l sFmwWMlfhhXlNUgpAnFscXVkbD4bGLpjmXHhr8JpbIJfYGXdmPGurL== GROSS DESCRIPTION (test code = 3366) v7ghePBfDVPziCOfMsYdQWPkRWNra0sqSTTnhYRgHzUaVqTgPjQgUtfwxKNoGDFxMjBzd1psq284nBOj b8qpCHAaEaB2aNUxAAZsuVRwN604YNUnLDmrc2msy5LuRKZksZIlm0L0OFZImivtjHy6iMsrT00yn6N4 LmxnS5xoEFFeJGvtJDTrSZttyNYgFAR8AYAcZNM6ZW ypkcTsjsA6QOsfkOQoOdR4BPw6d8rgvDuuDGSbQUW0r2yjBIsxhqTzRZ4yfu0rtSb5w1vsxcHhLHUaOS SdxBTUKBHgG5SawUcxPv2ztZt1xOayAugbXKM2Tbq3XQ1yfy32hdv3mDnnLIQcihzaDcE0FQnhVKTifh isMPf0WQjyIPZydQncLTldAORhyhisTDqcPQDhaCwl DEgwBDUsWahpUIaaUGMoXMY8QMdqx395BWI5RIjpu2ncf7cekGNiMwa2QOCaUcDjAfmhIZuhg5Tfv8kw ZLWbug6lICP3zCLcuRcwl8Z0pCXaQCPpgCVxqqZkOUUoZmK7XCreVT8xly78CMDdYMF1mb8pgRFttUco bgEqqOKkLZeoN5ObNZKuc449WPUrL8FhWJKoo2O3fp UpRqUkUPDurGM8ooN2BLJhXXu1lGWxdwJ7bdRfjIHmT2mpnP47JcMnbBVjL8SzkC24UuIkgIMpH1TfdZ 59XgHbaVWgU6ClzQ60KhXikFPdALWurDNrYi9vyPNmeUIea4MsfXMdYPtgD83at742GWQcszTxH8vogD FpblxwbGFpblxmMFxmczIwXHFsXHBsYWluXGYwXGZz YhIkkSopsW0zTwOaOqEsWLOYKRXbaHChLRAglhDxtKKgMMOihHDyESkalDrqwTkwBBTnaOogenNfheGo SI7hCDOjZ7Jnt1Cvz10vrrBgXlSsSOKvCTIwcSUdpMC1FE7rc5BhkXGlTR9priRgPMkbAmSkkrBtXQEo rCYuPVpeJP78YQSyAYCuO4MsL5W4ELMtUyJukYd4kO FgFFfdpMIsSWy4yIJeXIKxx1B9TCQrLtdvg3ZqUyKbF29hmzQsSaDBgIJtw8WjS6uwES6qtEQpk2CrlD JljPdyv1XniCzqfpMdVBJzORMsaaSani9earYwDHUjw98cRGPsXIOkMCHzbZfppTMkAmLLeCQgd7NqX4 jsNX4szLCfKP91iIFlfGnrp4OqqSm7rVRhVGihTWTjRHQ4JsLlVIXFQ4ThTZmfPWY1 MICROSCOPIC DESCRIPTION (test code = 3371) r6gpiFKeZYKihEQdLgWoPPYaYCNbo9lgCOHewKTnPsUwCyVlUcIyGeyslFFvUNRfUvCsm8ltd370lJOl z9biVKNqWuS7xXUiQOZvlGZgC055n1ies0xobwTqgAN8CFCqPBS1XXadqgAumbQ1UTnuhEDnHpW4WLep lmRoFMesihJdoqLlHwe9CVNdR054RIW8iRqyl6bsPQ K6IHVrGSHaMtDtGv8heYFhE776AYKpUDQUPHBacRz6RPNesrIuhbNqoKNGi787N871g4aePRFulwPjsG qDylrra3quH921SKQlgTPmexGeIkVlOARnzGPjfIM7MVEaOD5ppbnsWlExJY3itzbjErRjYL9twua0Ud IlUJ6cddxxPqZxSFqmPASvijdwCHMjc9KbmepvLH4n S1Hhr1J6hM5fiOXzSISrhCXkOqKnEXSerx9qcDGfHGjia4HpWHZ4frO3aRNowTZgDCGnML55Tbqos9Ax ZzeaHCD3WPVxbaMkc1Kmy7tvDtBmldFqT0pxX4RoFWPlLFQlVSHqWpTbtlOtc4Xmf6YatPSqtSb2z6rx QAGvAEBrcHerp8svVRT1PQDzR3C6bUSpg0jnXUgpRL MlrFB8wuyuFQdnUCLndtS1jbodYGijPNOgiQM0swwxEYkeVNJrRfM8lmgsKOfbRKOwJPN1FVdcb132NC I5CDkgRhyjVVlgQRYkuuPqanAelIxaOXSmJPBgAIrgJTWtJScmRHVuQAXoWoQwlIdcsIefaD0vQgTcEq PjXSgjAW5uAYYdB3ghnDSwZRDcVEXkI5cjEsXieT 0urZcwHQycieWaKOMtHHZpxjGmbx4tNR6bnVBehO== [facility] [id number] 18:37:00Surgical Pathology Report Case: [id number] Authorizing Provider: Carlos Mohan MD Collected: 06/21/2019 1056 Ordering Location: [place] [address] ICU Received: 06/21/2019 1103 Pathologist: Kelton Brewer MD Specimen: Soft Tissue, Other, left temporal hemorrhage BRAIN, LEFT TEMPORAL, CRANIOTOMY AND EVACUATION:- BLOOD CLOT-SMALL FRA GMENTS OF LEPTOMENINGES Signing Pathologist Direct Phone Line: [phone] an d postop diagnosis: Brain bleedLeft temporal hemorrhage Received fresh labeled w ith the patient's name, accession number and "left temporal hemorrhage" is a 4 x 3 x 1.5 cm aggregate of multiple, irregular clotted blood fragments. The specim en is serially sectioned and no gross lesions are identified. The specimen is en tirely submitted in A1-A5. CG/pl A. Performed.POC-Glucose [id number] 13:28:00* Test Item Value Reference Range Interpretation Comments POC-Glucose Meter (test code = 1538) 134 mg/dL 70-110 H : TESTED AT [facility] [address], [address]: Crayon Painter/Policyholder Information Clerk ID = [id number] for EARL [facility] Lab Interpretation (test code = 33531-2) [facility] [id number] 13:28:00* Test Item Value Reference Range Interpretation Comments POC-GLUCOSE METER (BEAKER) (test code = 1538) 134 mg/dL 70-110 H : TESTED AT [address], [address]: Crayon Painter/Policyholder Information Clerk ID = [id number] for ARLENE HAGAIL [id number] 06:54:00* Test Item Value Reference Range Interpretation Comments Magnesium (test code = 95955-4) 2.0 mg/dL 1.6-2.6 ANA (test code = ANA) Crayon Painter ID - PIKINJAL L Lab Interpretation (test code = 01819-9) [facility]54:[facility]* Test Item Value Reference Range Interpretation Comments Phosphorus (test code = 2777-1) 2.9 mg/dL 2.3-4.7 ANA (test code = AAN) Crayon Painter ID - PIAYA L Lab Interpretation (test code = 91329-0) [facility] 06:54:00* Test Item Value Reference Range Interpretation Comments PHOSPHORUS (BEAKER) (test code = 604) 2.9 mg/dL 2.3-4.7 Crayon Painter ID - PIAYA [id number] 06:54:00* Test Item Value Reference Range Interpretation Comments MAGNESIUM (BEAKER) (test code = 627) 2.0 mg/dL 1.6-2.6 Crayon Painter ID - PAPA LPOCT-GLUCOSE [id number] 06:01:00* Test Item Value Reference Range Interpretation Comments POC-GLUCOSE METER (BEAKER) (test code = 1538) 128 mg/dL 70-110 H : Notified RN/MD: TESTED AT [address], [address]: Crayon Painter/Policyholder Information Clerk ID = [id number] for LYNNE SHEPHERD CBC (HEMOGRAM ONLY)2019-06-27 05:42:00* Test Item Value Reference Range Interpretation Comments WHITE BLOOD CELL COUNT (BEAKER) (test code = 775) 8.6 K/ L 3.5- 10.5 RED BLOOD CELL COUNT (BEAKER) (test code = 761) 3.39 M/ L 4.63-6 .08 L HEMOGLOBIN (BEAKER) (test code = 410) 10.6 GM/DL 13.7-17.5 L HEMATOCRIT (BEAKER) (test code = 411) 32.7 % 40.1-51.0 L MEAN CORPUSCULAR VOLUME (BEAKER) (test code = 753) 96.5 fL 79. 0-92.2 H MEAN CORPUSCULAR HEMOGLOBIN (BEAKER) (test code = 751) 31.3 pg 25.7-32.2 MEAN CORPUSCULAR HEMOGLOBIN CONC (BEAKER) (test code = 752) 32.4 GM/DL 32.3-36.5 RED CELL DISTRIBUTION WIDTH (BEAKER) (test code = 412) 13.5 % 11.6-14.4 PLATELET COUNT (BEAKER) (test code = 756) 274 K/CU MM 150-450 MEAN PLATELET VOLUME (BEAKER) (test code = 754) 9.7 fL 9.4-12 .4 NUCLEATED RED BLOOD CELLS (BEAKER) (test code = 413) 0 /100 WBC 0 -0 POCT-GLUCOSE [id number] 00:08:00* Test Item Value Reference Range Interpretation Comments POC-GLUCOSE METER (BEAKER) (test code = 1538) 108 mg/dL 70-110 : Notified RN/MD: TESTED AT [facility] [address] [facility], [address]: Crayon Painter/Policyholder Information Clerk ID = [id number] for LINDAAISLINN MUELLERE RAD, ABDOMEN/KUB, 1 VIEW [id number] 21:46:00Reason for exam:->to check Corpak placmentShould this be performed at the bedside?->YesFINAL REPORT CLINICAL HISTORY: to check Corpak placment TECHNIQUE: RAD, ABDOMEN/KUB, 1 VIEW AP COMPARISON: Plain radiograph the abdomen dated 06/26/2019. FINDINGS: Interval retraction of the weighted tip feeding tube with tip overlying the expected location of the first portion the duodenum. Otherwise unchanged examination the interval. Nonspecific bowel gas pattern. Retained contrast material in the large bowel. Signed: Natalia [place] Verified Date/Time: 06/26/2019 21:46:50 abdomen / KUB 1 [id number] 21:46:00 Interface, External Ris In - 06/26/2019 9:49 PM CSTFINAL REPORT PATIENT ID: [id number] CLINICAL HISTORY: to check Corpak placment TECHNIQUE: RAD, ABDOMEN/KUB, 1 VIEW AP COMPARISON: Plain radiograph the abdomen dated 06/26/2019. FINDINGS: In terval retraction of the weighted tip feeding tube with tip overlying the expect ed location of the first portion the duodenum. Otherwise unchanged examination t he interval. Nonspecific bowel gas pattern. Retained contrast material in the la rge bowel. Signed: Natalia Mays Verified Date/Time: 06/26/2019 21:46:50 0 9:46 PM [facility] [id number] 21:31:00* Test Item Value Reference Range Interpretation Comments POC-GLUCOSE METER (BEAKER) (test code = 1538) 139 mg/dL 70-110 H : TESTED AT [address], [address]: Crayon Painter/Policyholder Information Clerk ID = [id number] for AKINSONU, YOUNG POCT-GLUCOSE [id number] 13:10:00* Test Item Value Reference Range Interpretation Comments POC-GLUCOSE METER (BEAKER) (test code = 1538) 113 mg/dL 70-110 H : TESTED AT [place] [id number] [facility], [address]: Crayon Painter/Policyholder Information Clerk ID = [id number] for AKINSONU, YOUNG POCT-GLUCOSE [id number] 07:09:00* Test Item Value Reference Range Interpretation Comments POC-GLUCOSE METER (BEAKER) (test code = 1538) 114 mg/dL 70-110 H : TESTED AT [address], [address]: Crayon Painter/Policyholder Information Clerk ID = [id number] for DONORMA WESTBROOKA [id number] 07:07:00* Test Item Value Reference Range Interpretation Comments PHOSPHORUS (BEAKER) (test code = 604) 3.8 mg/dL 2.3-4.7 Crayon Painter ID Tamy BURNS [id number] 07:07:00* Test Item Value Reference Range Interpretation Comments MAGNESIUM (BEAKER) (test code = 627) 1.9 mg/dL 1.6-2.6 Crayon Painter HUSEYIN BURNS MCBC (HEMOGRAM ONLY)2019-06-26 06:43:00* Test Item Value Reference Range Interpretation Comments WHITE BLOOD CELL COUNT (BEAKER) (test code = 775) 7.5 K/ L 3.5- 10.5 RED BLOOD CELL COUNT (BEAKER) (test code = 761) 3.10 M/ L 4.63-6 .08 L HEMOGLOBIN (BEAKER) (test code = 410) 9.7 GM/DL 13.7-17.5 L HEMATOCRIT (BEAKER) (test code = 411) 30.0 % 40.1-51.0 L MEAN CORPUSCULAR VOLUME (BEAKER) (test code = 753) 96.8 fL 79. 0-92.2 H MEAN CORPUSCULAR HEMOGLOBIN (BEAKER) (test code = 751) 31.3 pg 25.7-32.2 MEAN CORPUSCULAR HEMOGLOBIN CONC (BEAKER) (test code = 752) 32.3 GM/DL 32.3-36.5 RED CELL DISTRIBUTION WIDTH (BEAKER) (test code = 412) 14.0 % 11.6-14.4 PLATELET COUNT (BEAKER) (test code = 756) 256 K/CU MM 150-450 MEAN PLATELET VOLUME (BEAKER) (test code = 754) 9.9 fL 9.4-12 .4 NUCLEATED RED BLOOD CELLS (BEAKER) (test code = 413) 0 /100 WBC 0 -0 RAD, ABDOMEN/KUB, 1 VIEW [id number] 05:43:00Reason for exam:->to check placement of a corpakShould this be performed at the bedside?->YesFINAL REPORT RAD, ABDOMEN/KUB, 1 VIEW AP CLINICAL HISTORY: to check placement of a corpak TECHNIQUE: RAD, ABDOMEN/KUB, 1 VIEW AP COMPARISON: June 22, 2019 IMPRESSION:Duotube tip projects appropriately over the second portion of the duodenum. Contrast within the colon noted.The bowel gas pattern is nonspecific/nonobstructive. No portal venous gas or pneumatosis intestinalis. No free air. Signed: Wale Voss MDReport Verified Date/Time: 06/26/2019 05:43:05 0 5:43 AM POCT-GLUCOSE [id number] 22:25:00* Test Item Value Reference Range Interpretation Comments POC-GLUCOSE METER (BEAKER) (test code = 1538) 123 mg/dL 70-110 H : TESTED AT [facility] [address] [facility], [address]: Crayon Painter/Policyholder Information Clerk ID = [id number] for DOVE, CHEKARA FL, ESOPH, SWALLOW FUNCTION, WITH CINE OR [id number] 15:09:00Reason for exam:->evaluation for aspiration - discussed with LAG SCREWER, [facility] 06/25FINAL REPORT Modified barium swallow exam with speech pathology service CLINICAL HISTORY: Evaluation for aspiration - discussed with LAG SCREWER, [facility] 06/25 IMPRESSION: Please see the speech pathology service report for details. Barium contrast of multiple consistencies is given to the patient to swallow. Fluoroscopic observation is performed during swallowing. Aspiration was observed with administration of thin liquid. Deep penetration was observed with admini stration of nectar thick liquid. Fluoro time: 2.1 min Number of images: 1 Emma d: Arlene Nunes Verified Date/Time: 06/25/2019 15:09:11 Reading Loc ation: [address] esoph swallow funct with cine [id number] 15:09:00 Interface, External Ris In - 06/25/2019 3:11 PM CSTFINAL REPORT PATIENT ID: [id number] Modified barium swallow exam with speech pathology service CLINICAL HIS TORY: Evaluation for aspiration - discussed with LAG SCREWER, [facility] 06/25 IMPRESSION: Plea se see the speech pathology service report for details. Barium contrast of multi ple consistencies is given to the patient to swallow. Fluoroscopic observation i s performed during swallowing. Aspiration was observed with administration of th in liquid. Deep penetration was observed with administration of nectar thick liq uid. Fluoro time: 2.1 min Number of images: 1 Signed: Arlene Nunes Verified Date/Time: 06/25/2019 15:09:11 Reading Location: [facility] 4th Flr [address] [facility]-GLUCOSE [id number] 06:35:00* Test Item Value Reference Range Interpretation Comments POC-GLUCOSE METER (BEAKER) (test code = 1538) 149 mg/dL 70-110 H : TESTED AT [facility] [address] [facility], [address]: Crayon Painter/Policyholder Information Clerk ID = [id number] for APOORVA BILLINGS [id number] 05:33:00* Test Item Value Reference Range Interpretation Comments PHOSPHORUS (BEAKER) (test code = 604) 3.3 mg/dL 2.3-4.7 Crayon Painter ID - BRENNAN [id number] 05:33:00* Test Item Value Reference Range Interpretation Comments MAGNESIUM (BEAKER) (test code = 627) 1.8 mg/dL 1.6-2.6 Crayon Painter ID - BRENNAN WCBC (HEMOGRAM ONLY)2019-06-25 04:56:00* Test Item Value Reference Range Interpretation Comments WHITE BLOOD CELL COUNT (BEAKER) (test code = 775) 8.3 K/ L 3.5- 10.5 RED BLOOD CELL COUNT (BEAKER) (test code = 761) 3.12 M/ L 4.63-6 .08 L HEMOGLOBIN (BEAKER) (test code = 410) 10.2 GM/DL 13.7-17.5 L HEMATOCRIT (BEAKER) (test code = 411) 30.0 % 40.1-51.0 L MEAN CORPUSCULAR VOLUME (BEAKER) (test code = 753) 96.2 fL 79. 0-92.2 H MEAN CORPUSCULAR HEMOGLOBIN (BEAKER) (test code = 751) 32.7 pg 25.7-32.2 H MEAN CORPUSCULAR HEMOGLOBIN CONC (BEAKER) (test code = 752) 34.0 GM/DL 32.3-36.5 RED CELL DISTRIBUTION WIDTH (BEAKER) (test code = 412) 14.0 % 11.6-14.4 PLATELET COUNT (BEAKER) (test code = 756) 226 K/CU MM 150-450 MEAN PLATELET VOLUME (BEAKER) (test code = 754) 9.6 fL 9.4-12 .4 NUCLEATED RED BLOOD CELLS (BEAKER) (test code = 413) 0 /100 WBC 0 -0 POCT-GLUCOSE [id number] 01:03:00* Test Item Value Reference Range Interpretation Comments POC-GLUCOSE METER (BEAKER) (test code = 1538) 120 mg/dL 70-110 H : TESTED AT [address], [address]: Crayon Painter/Policyholder Information Clerk ID = [id number] for APOORVA BILLINGS POCT-GLUCOSE [id number] 17:48:00* Test Item Value Reference Range Interpretation Comments POC-GLUCOSE METER (BEAKER) (test code = 1538) 137 mg/dL 70-110 H : TESTED AT [address], [address]: Crayon Painter/Policyholder Information Clerk ID = [id number] for SHERRIE TORIBIOA POCT-GLUCOSE [id number] 12:44:00* Test Item Value Reference Range Interpretation Comments POC-GLUCOSE METER (BEAKER) (test code = 1538) 143 mg/dL 70-110 H : TESTED AT [address], [address]: Crayon Painter/Policyholder Information Clerk ID = [id number] for MALU, SHERRIEA POCT-GLUCOSE [id number] 06:28:00* Test Item Value Reference Range Interpretation Comments POC-GLUCOSE METER (BEAKER) (test code = 1538) 161 mg/dL 70-110 H : TESTED AT [address], [address]: Crayon Painter/Policyholder Information Clerk ID = [id number] for DRAKE GHOSH [id number] 06:17:00* Test Item Value Reference Range Interpretation Comments PHOSPHORUS (BEAKER) (test code = 604) 2.4 mg/dL 2.3-4.7 Crayon Painter ID - BRENNAN [id number] 06:17:00* Test Item Value Reference Range Interpretation Comments MAGNESIUM (BEAKER) (test code = 627) 1.9 mg/dL 1.6-2.6 Crayon Painter ID - BRENNAN WBASIC METABOLIC [id number] 06:17:00* Test Item Value Reference Range Interpretation Comments SODIUM (BEAKER) (test code = 381) 140 meq/L 136-145 POTASSIUM (BEAKER) (test code = 379) 3.9 meq/L 3.5-5.1 CHLORIDE (BEAKER) (test code = 382) 110 meq/L 98-107 H CO2 (BEAKER) (test code = 355) 24 meq/L 22-29 BLOOD UREA NITROGEN (BEAKER) (test code = 354) 25 mg/dL 7-21 H CREATININE (BEAKER) (test code = 358) 1.05 mg/dL 0.57-1.25 GLUCOSE RANDOM (BEAKER) (test code = 652) 155 mg/dL 70-105 H CALCIUM (BEAKER) (test code = 697) 8.7 mg/dL 8.4-10.2 EGFR (BEAKER) (test code = 1092) 69 mL/min/1.73 sq m ESTIMATED GFR IS NOT ACCURATE CREATININE CLEARANCE IN PREDICTING GLOMERULAR FILTRATION RATE. ESTIMATED GFR IS NOT APPLICABLE FOR DIALYSIS PATIENTS. Crayon Painter ID - BRENNAN WCBC (HEMOGRAM ONLY)2019-06-24 05:18:00* Test Item Value Reference Range Interpretation Comments WHITE BLOOD CELL COUNT (BEAKER) (test code = 775) 9.3 K/ L 3.5- 10.5 RED BLOOD CELL COUNT (BEAKER) (test code = 761) 3.02 M/ L 4.63-6 .08 L HEMOGLOBIN (BEAKER) (test code = 410) 9.9 GM/DL 13.7-17.5 L HEMATOCRIT (BEAKER) (test code = 411) 29.1 % 40.1-51.0 L MEAN CORPUSCULAR VOLUME (BEAKER) (test code = 753) 96.4 fL 79. 0-92.2 H MEAN CORPUSCULAR HEMOGLOBIN (BEAKER) (test code = 751) 32.8 pg 25.7-32.2 H MEAN CORPUSCULAR HEMOGLOBIN CONC (BEAKER) (test code = 752) 34.0 GM/DL 32.3-36.5 RED CELL DISTRIBUTION WIDTH (BEAKER) (test code = 412) 14.3 % 11.6-14.4 PLATELET COUNT (BEAKER) (test code = 756) 210 K/CU MM 150-450 MEAN PLATELET VOLUME (BEAKER) (test code = 754) 10.4 fL 9.4-12 .4 NUCLEATED RED BLOOD CELLS (BEAKER) (test code = 413) 0 /100 WBC 0 -0 POCT-GLUCOSE [id number] 23:34:00* Test Item Value Reference Range Interpretation Comments POC-GLUCOSE METER (BEAKER) (test code = 1538) 144 mg/dL 70-110 H : TESTED AT [facility] [address] [facility], [address]: Crayon Painter/Policyholder Information Clerk ID = [id number] for DRAKE GHOSH CT, BRAIN, WITHOUT [id number] 16:58:00FINAL REPORT CT, BRAIN, WITHOUT CONTRAST CLINICAL INDICATION: Stroke, follow up COMPARISON: June 21, 2019 TECHNIQUE: Noncontrast axial CT imaging of the brain and skull. DOSE REDUCTION: Dose modulation, iterative reconstruction, and/or weight-based adjustment of the mA/kV was utilized to reduce the radiation dose to as low as reasonably achievable. FINDINGS:Status post left frontoparietal craniotomy, presumably for evacuation of hematoma. A tiny extra- axial hematoma is noted subjacent to the craniotomy measuring up to 4 mm. There is interval decrease midline shift, formerly 8 mm and now 1 mm. Interval resolution of right ventricular entrapment. Mild effacement of the left lateral ventricle occipital horn persists Scattered subarachnoid blood products remain w ithin the infarcted parenchyma and basal ganglia. No hydrocephalus. Orbits are w ithin normal limits. Right-sided nasogastric tube. Scattered mucosal thickening of the ethmoid air cells. IMPRESSION: Decreased midline shift and resolution of right ventricular entrapment status post evacuation of left temporal and parieta l hematoma. If there is persistent clinical concern for intracranial pathology, MR examination is recommended for further characterization. Signed: Sa [facility] MDReport Verified Date/Time: 06/23/2019 16:58:57 Reading Location: [address] Neuro Reading Room , CHEST, 1 VIEW, NON [id number] 15:10:00Reason for exam:->cough, possible aspiration, h/o stroke this admission with corpakShould this be performed at the bedside?->YesFINAL REPORT CLINICAL HISTORY: cough, possible aspiration, h/o stroke this admission with corpak TECHNIQUE: 1 view of the chest. COMPARISON: 07/10/2018 IMPRESSION: There is a feeding tube below the diaphragm. There is mild prominence of the pulmonary vasculature. There is no lobar consolidation. There is blunting of the right costophrenic angle. The cardiomediastinal silhouette is magnified by technique. Signed: Waylon Esteves MDReport Verified Date/Time: 06/23/2019 15:10:54 Reading Location: [facility] Radiology Reading Room -GLUCOSE [id number] 13:12:00* Test Item Value Reference Range Interpretation Comments POC-GLUCOSE METER (BEAKER) (test code = 1538) 110 mg/dL 70-110 : TESTED AT [address], [address]: Crayon Painter/Policyholder Information Clerk ID = [id number] for YOUNG GARVEY Lipid [id number] 07:27:00* Test Item Value Reference Range Interpretation Comments Triglycerides (test code = 2571-8) 58 mg/dL Cholesterol (test code = 2093-3) 110 mg/dL HDL (test code = 2085-9) 43 mg/dL LDL Calculated (test code = 42559-0) 55 mg/dL ANA (test code = ANA) Triglyceride Reference Range : Low Risk <150 Borderline 150-199 High Risk 200-499 Very High Risk >=500 Cholesterol Reference Range: Low Risk <200 Borderline 200-239 High Risk >240 HDL Cholesterol Reference Range: Low Risk >=60 High Risk <40 LDL Cholesterol Reference Range: Optimal <100 Near Optimal 100-129 Borderline 130-159 High 160-189 Very High >=190 Crayon Painter ID - JOANN HUTCHINS [facility] [id number] 07:27:00* Test Item Value Reference Range Interpretation Comments PHOSPHORUS (BEAKER) (test code = 604) 2.0 mg/dL 2.3-4.7 L Crayon Painter ID - [id number] 07:27:00* Test Item Value Reference Range Interpretation Comments MAGNESIUM (BEAKER) (test code = 627) 2.0 mg/dL 1.6-2.6 Crayon Painter ID - LABASIC METABOLIC [id number] 07:27:00* Test Item Value Reference Range Interpretation Comments SODIUM (BEAKER) (test code = 381) 140 meq/L 136-145 POTASSIUM (BEAKER) (test code = 379) 4.0 meq/L 3.5-5.1 CHLORIDE (BEAKER) (test code = 382) 111 meq/L 98-107 H CO2 (BEAKER) (test code = 355) 24 meq/L 22-29 BLOOD UREA NITROGEN (BEAKER) (test code = 354) 25 mg/dL 7-21 H CREATININE (BEAKER) (test code = 358) 1.09 mg/dL 0.57-1.25 GLUCOSE RANDOM (BEAKER) (test code = 652) 155 mg/dL 70-105 H CALCIUM (BEAKER) (test code = 697) 8.3 mg/dL 8.4-10.2 L EGFR (BEAKER) (test code = 1092) 66 mL/min/1.73 sq m ESTIMATED GFR IS NOT ACCURATE CREATININE CLEARANCE IN PREDICTING GLOMERULAR FILTRATION RATE. ESTIMATED GFR IS NOT APPLICABLE FOR DIALYSIS PATIENTS. Crayon Painter ID - LALIPID [id number] 07:27:00* Test Item Value Reference Range Interpretation Comments TRIGLYCERIDES (BEAKER) (test code = 540) 58 mg/dL CHOLESTEROL (BEAKER) (test code = 631) 110 mg/dL HDL CHOLESTEROL (BEAKER) (test code = 976) 43 mg/dL LDL CHOLESTEROL CALCULATED (BEAKER) (test code = 633) 55 mg/dL Triglyceride Reference Range: Low Risk <150 Borderline 150-199 High Risk 200-499 Very High Risk >=500Cholesterol Reference Range: Low Risk <200 Borderline 200-239 High Risk >240HDL Cholesterol Reference Range: Low Risk >=60 High Risk <40LDL Cholesterol Reference Range: Optimal <100 Near Optimal 100-129 Borderline 130-159 High 160-189 Very High >=190 Crayon Painter ID - LACBC (HEMOGRAM ONLY)2019-06-23 06:36:00* Test Item Value Reference Range Interpretation Comments WHITE BLOOD CELL COUNT (BEAKER) (test code = 775) 9.0 K/ L 3.5- 10.5 RED BLOOD CELL COUNT (BEAKER) (test code = 761) 2.99 M/ L 4.63-6 .08 L HEMOGLOBIN (BEAKER) (test code = 410) 9.5 GM/DL 13.7-17.5 L HEMATOCRIT (BEAKER) (test code = 411) 29.7 % 40.1-51.0 L MEAN CORPUSCULAR VOLUME (BEAKER) (test code = 753) 99.3 fL 79. 0-92.2 H MEAN CORPUSCULAR HEMOGLOBIN (BEAKER) (test code = 751) 31.8 pg 25.7-32.2 MEAN CORPUSCULAR HEMOGLOBIN CONC (BEAKER) (test code = 752) 32.0 GM/DL 32.3-36.5 L RED CELL DISTRIBUTION WIDTH (BEAKER) (test code = 412) 14.5 % 11.6-14.4 H PLATELET COUNT (BEAKER) (test code = 756) 198 K/CU MM 150-450 MEAN PLATELET VOLUME (BEAKER) (test code = 754) 9.9 fL 9.4-12 .4 NUCLEATED RED BLOOD CELLS (BEAKER) (test code = 413) 0 /100 WBC 0 -0 POCT-GLUCOSE [id number] 06:18:00* Test Item Value Reference Range Interpretation Comments POC-GLUCOSE METER (BEAKER) (test code = 1538) 140 mg/dL 70-110 H : TESTED AT [address], [address]: Crayon Painter/Policyholder Information Clerk ID = [id number] for AUGIE BAILEETIANNAANDRESMaximiliano POCT-GLUCOSE [id number] 00:39:00* Test Item Value Reference Range Interpretation Comments POC-GLUCOSE METER (BEAKER) (test code = 1538) 133 mg/dL 70-110 H : TESTED AT [address], [address]: Crayon Painter/Policyholder Information Clerk ID = [id number] for AUGIE HILDAMaximiliano Prepare Leuko-Red [id number] 23:54:00* Test Item Value Reference Range Interpretation Comments Unit ABO (test code = 9004264) O Pos UNIT NUMBER (test code = 934-0) [id number] Status (test code = 7846832) TX_TIMEINCHART Blood Bank Product (test code = 2263) PLATELETS PRODUCT CODE (test code = 933-2) [id number] [facility] 19:20:00* Test Item Value Reference Range Interpretation Comments PHOSPHORUS (BEAKER) (test code = 604) 1.4 mg/dL 2.3-4.7 LL Crayon Painter ID - DB8 hours after PO replacement [id number] 19:04:00* Test Item Value Reference Range Interpretation Comments Potassium (test code = 2823-3) 4.0 meq/L 3.5-5.1 ANA (test code = ANA) Crayon Painter ID - DB8 hours after PO replaceme nt completed Lab Interpretation (test code = 81708-7) Normal [facility] 19:04:00* Test Item Value Reference Range Interpretation Comments POTASSIUM (BEAKER) (test code = 379) 4.0 meq/L 3.5-5.1 Crayon Painter ID - DB8 hours after PO replacement [id number] 19:04:00* Test Item Value Reference Range Interpretation Comments MAGNESIUM (BEAKER) (test code = 627) 2.1 mg/dL 1.6-2.6 Crayon Painter ID - DB8 hours after PO replacement completedPOCT-GLUCOSE METER 2019-06-22 18:41:00* Test Item Value Reference Range Interpretation Comments POC-GLUCOSE METER (BEAKER) (test code = 1538) 131 mg/dL 70-110 H : TESTED AT [place] [id number] [facility], [address]: Crayon Painter/Policyholder Information Clerk ID = [id number] for GilbertonSherita 2D Echo W/Doppler(CW/PW/Color)2019-06-22 14:48:55Ejection FractionSLEH ECHO HEARTLAB MKCKESSON CPACSInterface, External Ris In - 06/22/2019 2:49 PM CSTTransthoracic Echocardiography Report (TTE) Demographics Patient Name JUANITO ARGUETA Date of Study 06/22/2019 BERNY Gender Male Visit Number [id number] Race Unknown Room Number 7519 Number Date of 1945 Referring 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 The left ventricle is chamber siz e (by PSLAX dimension) is normal (male - LVIDd 4.2-5.8cm) . Mild septal hypertro phy is present. The following segment(s) appear hypokinetic: apical septum . The other segments contract normally. Estimated LVEF by qualitative assessment is n ormal (>60%) . There is minimal aortic stenosis. [...] limits. Right Atrium RA size is normal. A trial Septum IV saline contrast injection was negative for a PFO (patent foramen ovale) at rest and post Valsalva . Aortic Valv e Mild AoV cusp thickening. Mild AoV cusp calci fication. There is minimal aortic stenosis. AoV area at rest by continuity equation is in the range of 2.0 cm2. AoV area by planimtery is in the ran ge of 2.0 cm2. Mitral Valve Mild MV leaflet thickening. Tricuspid Va lve TV structure is normal. Estimated peak systoli c PA pressure is 30-35 mmHg . Pulmonic Valve Normal PV structure and fu nction by limited views and Doppler. Aorta Aortic root size (Sinus of Valsalva diameter) is mild ly dilated. 3.7 cm Pericardium No significant pericardial effusion i s visualized. IVC/SVC/PA/PV/Pleural The estimated RA pressure by IVC dynamics 5-10mmHg . Chambers/Structures Left Atrium LA Volume: 48 .69 ml LA Area: 17.86 cm^2 LA Vol. Index: 24 ml/m^2 Left Ve ntricle LVIDd: 4.21 cm LVEDV:79.09 ml LVIDs: 2.86 cm LVESV:23.44 ml LV Septum Diastolic: 1.36 cm LVEF 2D Cube: 68.6 % LV PW Diastolic: 1.09 cm LV FS: 32.1 % LVOT Diameter: 2.14 cm LVEF: 70.4 % Dop pler/Quantitative Measurements Mitral Valve MV Peak E-Wave: 0.88 m/s MV Peak A-Wave: 0.94 m/s E/A Ratio: 0.93 Peak Gradient: 3.11 mmHg Deceleration Time: 296.1 msec MV Davi. Peak: Aortic Valve Peak Velo city: 3.02 m/s Mean Velocity: 1.9 m/s Peak Gradient: 36.39 mmHg Mean Gradient: 17.43 mmHg AV Area (continuity): 2.02 cm^2 AV VTI : 52.6 cm AV DVI: 0.56 LVOT Peak Velocity: 1.6 m/s Peak Gradient: 10.18 mmHg Mean Velocity: 1 m/s Mean Gradient: 5.[address]: 2.14 cm LVOT VTI: 29.51 cm LVOT Area: 3.6 cm^2 LVO T SV:106.09 ml LVOT CO: 9.44 l/min LVOT CI: 4.63 l/min/m^2 [facility] 1 VIEW [id number] 13:02:00Reason for exam:->feeding tube placementShould this be performed at the bedside?->YesFINAL REPORT CLINICAL HISTORY: feeding tube placement MOOK HNIQUE: Supine abdomen IMPRESSION: The tip of the feeding tube is in the duodenu m. The visualized bowel gas pattern is nonspecific. Signed: Waylon Esteves MDRepo rt Verified Date/Time: 06/22/2019 13:02:38 Reading Location: [facility] Reading Room Electronically signed by: WAYLON ESTEVES M.D. on 2019 01:02 PM ECG 12 [id number] 06:48:29Interface, External Ris In - 06/22/2019 6:48 AM CSTVentricular Rate 67 BPMAtrial Rate 67 BPMP-R Interval 178 msQRS Duration 88 msQ-T Interval 370 msQTC Calculation(Bazett) 390 msP [place] 36 degreesR [place] 9 degreesT [place] 22 degreesNormal sinus rhythmInferior infarct (cited on or before 17-OCT-2005)Cannot rule out Anterior infarct , age undeterminedAbnormal ECGWhen compared with ECG of 10-JUL-2018 18:05,Nonspecific T wave abnormality now evident in Inferior leadsQT has shortenedConfirmed by MD ETHEL, PEE ([id number]) on 06/22/2019 6:48:24 [facility] CBC (HEMOGRAM ONLY)2019-06-22 05:08:00* Test Item Value Reference Range Interpretation Comments WHITE BLOOD CELL COUNT (BEAKER) (test code = 775) 12.2 K/ L 3.5- 10.5 H RED BLOOD CELL COUNT (BEAKER) (test code = 761) 3.16 M/ L 4.63-6 .08 L HEMOGLOBIN (BEAKER) (test code = 410) 10.1 GM/DL 13.7-17.5 L Discordant MCV results compared to previous results; clinical correlation required. HEMATOCRIT (BEAKER) (test code = 411) 30.2 % 40.1-51.0 L MEAN CORPUSCULAR VOLUME (BEAKER) (test code = 753) 95.6 fL 79. 0-92.2 H MEAN CORPUSCULAR HEMOGLOBIN (BEAKER) (test code = 751) 32.0 pg 25.7-32.2 MEAN CORPUSCULAR HEMOGLOBIN CONC (BEAKER) (test code = 752) 33.4 GM/DL 32.3-36.5 RED CELL DISTRIBUTION WIDTH (BEAKER) (test code = 412) 14.0 % 11.6-14.4 PLATELET COUNT (BEAKER) (test code = 756) 224 K/CU MM 150-450 MEAN PLATELET VOLUME (BEAKER) (test code = 754) 10.0 fL 9.4-12 .4 NUCLEATED RED BLOOD CELLS (BEAKER) (test code = 413) 0 /100 WBC 0 -0 [id number] 05:05:00* Test Item Value Reference Range Interpretation Comments PHOSPHORUS (BEAKER) (test code = 604) 1.9 mg/dL 2.3-4.7 L Crayon Painter ID - GRANT [id number] 05:05:00* Test Item Value Reference Range Interpretation Comments MAGNESIUM (BEAKER) (test code = 627) 1.5 mg/dL 1.6-2.6 L Crayon Painter ID - GRANT MBASIC METABOLIC [id number] 05:05:00* Test Item Value Reference Range Interpretation Comments SODIUM (BEAKER) (test code = 381) 137 meq/L 136-145 POTASSIUM (BEAKER) (test code = 379) 3.7 meq/L 3.5-5.1 CHLORIDE (BEAKER) (test code = 382) 108 meq/L 98-107 H CO2 (BEAKER) (test code = 355) 22 meq/L 22-29 BLOOD UREA NITROGEN (BEAKER) (test code = 354) 23 mg/dL 7-21 H CREATININE (BEAKER) (test code = 358) 1.13 mg/dL 0.57-1.25 GLUCOSE RANDOM (BEAKER) (test code = 652) 139 mg/dL 70-105 H CALCIUM (BEAKER) (test code = 697) 8.0 mg/dL 8.4-10.2 L EGFR (BEAKER) (test code = 1092) 64 mL/min/1.73 sq m ESTIMATED GFR IS NOT ACCURATE CREATININE CLEARANCE IN PREDICTING GLOMERULAR FILTRATION RATE. ESTIMATED GFR IS NOT APPLICABLE FOR DIALYSIS PATIENTS. Crayon Painter ID - GRANT MLIPID [id number] 05:05:00* Test Item Value Reference Range Interpretation Comments TRIGLYCERIDES (BEAKER) (test code = 540) 68 mg/dL CHOLESTEROL (BEAKER) (test code = 631) 120 mg/dL HDL CHOLESTEROL (BEAKER) (test code = 976) 38 mg/dL LDL CHOLESTEROL CALCULATED (CLAY) (test code = 633) 68 mg/dL Triglyceride Reference Range: Low Risk <150 Borderline 150-199 High Risk 200-499 Very High Risk >=500Cholesterol Reference Range: Low Risk <200 Borderline 200-239 High Risk >240HDL Cholesterol Reference Range: Low Risk >=60 High Risk <40LDL Cholesterol Reference Range: Optimal <100 Near Optimal 100-129 Borderline 130-159 High 160-189 Very High >=190 Crayon Painter ID - GRANT MHemoglobin [id number] 12:28:00* Test Item Value Reference Range Interpretation Comments Hemoglobin A1C (test code = 4548-4) 6.8 % 4.3-6.1 H Lab Interpretation (test code = 13639-1) Abnormal [facility]HEMOGLOBIN [id number] 12:28:00* Test Item Value Reference Range Interpretation Comments HEMOGLOBIN A1C (CLAY) (test code = 368) 6.8 % 4.3-6.1 H POCT-P2Y12 PLATELET [id number] 09:03:00* Test Item Value Reference Range Interpretation Comments POC-P2Y12 Plt Agg (test code = 2303) 119 PRU NAA (test code = ANA) RANGE INFORMATION: PRU refer ence range is 194-418. Post Drug Results: Lower PRU levels are associated with expected antiplatelet effect. Values may be below the stated reference range above. The post-drug PRU values reported in the VerifyNow P2Y12 package insert are [id number]. [facility]PO[facility] PLATELET [id number] 09:03:00 * Test Item Value Reference Range Interpretation Comments POC-P2Y12 PLATELET AGG (CLAY) (test code = 2303) 119 PRU RANGE INFORMATION: PRU reference range is 194-418. Post Drug Results: Lower PRU levels are associated with expected antiplatelet effect. Values may be below the stated reference range above. The post-drug PRU values reported in the VerifyNo w P2Y12 package insert are [id number].Hepatic function [id number] 08:38:00* Test Item Value Reference Range Interpretation Comments Protein, Total (test code = 2885-2) 7.1 6.0- 8.3 gm/dL Specimen slightly hemolyzed Albumin (test code = 17790-8) 3.7 g/dL 3.5-5 Specimen slightly hemolyzed Total Bilirubin (test code = 1975-2) 0.4 mg/dL 0.2-1.2 Specimen slightly hemolyzed Bilirubin, Direct (test code = 1967-7) 0.2 mg/dL 0.1-0.5 Specimen slightly hemolyzed Alkaline Phosphatase (test code = 6768-6) 82 U/L 40-150 AST (test code = 1920-8) 36 U/L 5-34 H Spe cimen slightly hemolyzed ALT (test code = 1742-6) 54 U/L 6-55 Spe cimen slightly hemolyzed ANA (test code = ANA) Crayon Painter ID - GRANT M Lab Interpretation (test code = 49039-3) [facility]normal [id number]:38[facility]* Test Item Value Reference Range Interpretation Comments MAGNESIUM (BEAKER) (test code = 627) 1.6 mg/dL 1.6-2.6 Specimen slightly hemolyzed Crayon Painter ID - GRANT MBASIC METABOLIC [id number] 08:38:00* Test Item Value Reference Range Interpretation Comments SODIUM (BEAKER) (test code = 381) 135 meq/L 136-145 L POTASSIUM (BEAKER) (test code = 379) 4.0 meq/L 3.5-5.1 Specimen slightly hemolyzed CHLORIDE (BEAKER) (test code = 382) 107 meq/L 98-107 CO2 (BEAKER) (test code = 355) 20 meq/L 22-29 L BLOOD UREA NITROGEN (BEAKER) (test code = 354) 19 mg/dL 7-21 CREATININE (BEAKER) (test code = 358) 1.06 mg/dL 0.57-1.25 Specimen slightly hemolyzed GLUCOSE RANDOM (BEAKER) (test code = 652) 140 mg/dL 70-105 H CALCIUM (BEAKER) (test code = 697) 8.4 mg/dL 8.4-10.2 EGFR (BEAKER) (test code = 1092) 68 mL/min/1.73 sq m ESTIMATED GFR IS NOT ACCURATE CREATININE CLEARANCE IN PREDICTING GLOMERULAR FILTRATION RATE. ESTIMATED GFR IS NOT APPLICABLE FOR DIALYSIS PATIENTS. Crayon Painter ID - GRANT MLIPID [id number] 08:38:00* Test Item Value Reference Range Interpretation Comments TRIGLYCERIDES (BEAKER) (test code = 540) 99 mg/dL Specimen slightly hemolyzed CHOLESTEROL (BEAKER) (test code = 631) 134 mg/dL Specimen slightly hemolyzed HDL CHOLESTEROL (BEAKER) (test code = 976) 36 mg/dL LDL CHOLESTEROL CALCULATED (BEAKER) (test code = 633) 78 mg/dL Triglyceride Reference Range: Low Risk <150 Borderline 150-199 High Risk 200-499 Very High Risk >=500Cholesterol Reference Range: Low Risk <200 Borderline 200-239 High Risk >240HDL Cholesterol Reference Range: Low Risk >=60 High Risk <40LDL Cholesterol Reference Range: Optimal <100 Near Optimal 100-129 Borderline 130-159 High 160-189 Very High >=190 Crayon Painter ID - GRANT MHEPATIC FUNCTION [id number] 08:38:00* Test Item Value Reference Range Interpretation Comments TOTAL PROTEIN (BEAKER) (test code = 770) 7.1 gm/dL 6.0-8.3 Specimen slightly hemolyzed ALBUMIN (BEAKER) (test code = 1145) 3.7 g/dL 3.5-5.0 Specimen slightly hemolyzed BILIRUBIN TOTAL (BEAKER) (test code = 377) 0.4 mg/dL 0.2-1.2 Specimen slightly hemolyzed BILIRUBIN DIRECT (BEAKER) (test code = 706) 0.2 mg/dL 0.1-0.5 Specimen slightly hemolyzed ALKALINE PHOSPHATASE (BEAKER) (test code = 346) 82 U/L 40-150 AST (SGOT) (BEAKER) (test code = 353) 36 U/L 5-34 H Specimen slightly hemolyzed ALT (SGPT) (BEAKER) (test code = 347) 54 U/L 6-55 Specimen slightly hemolyzed Crayon Painter ID - GRANT MCT, BRAIN, WITHOUT [id number] 07:31:00FINAL REPORT CT, BRAIN, WITHOUT CONTRAST CLINICAL INDICATION: Stroke, follow up COMPARISON: Approximately 6 hours prior TECHNIQUE: Noncontrast axial CT imaging of the brain and skull. DOSE REDUCTION: Dose modulation, iterative reconstruction, and/or weight-based adjustment of the mA/kV was utilized to reduce the radiation dose to as low as reasonably achievable. FINDINGS:When accounting for differences in slice selection, there is no significant change in the size or mass effect of the left parenchymal hemorrhage no underlying v ascular anomaly was identified in the CT angiogram. There is intraventricular ex tension of hemorrhage with questionable mild tentorial subdural blood. Mass effe ct and midline shift are also unchanged. IMPRESSION: Grossly stable intracrani al appearance when compared to approximately six hours prior. Signed: Bertha lewis JR, Monique James Verified Date/Time: 06/21/2019 07:31:23 Reading Locatio n: [facility] B1 C013V Neuro Reading Room -GLUCOSE [id number] 06:56:00* Test Item Value Reference Range Interpretation Comments POC-GLUCOSE METER (BEAKER) (test code = 1538) 166 mg/dL 70-110 H : TESTED AT [facility] [address] [place], [address]: Crayon Painter/Policyholder Information Clerk ID = [id number] for DEANNA INDIRA QUIANA, [id number] 03:17:00* Test Item Value Reference Range Interpretation Comments ABO Grouping (test code = 2588) A Rh Factor (test code = 2589) POS [facility] W/PLT COUNT & AUTO [id number] 02:19:00* Test Item Value Reference Range Interpretation Comments WHITE BLOOD CELL COUNT (BEAKER) (test code = 775) 12.5 K/ L 3.5- 10.5 H RED BLOOD CELL COUNT (BEAKER) (test code = 761) 4.05 M/ L 4.63-6 .08 L HEMOGLOBIN (BEAKER) (test code = 410) 13.1 GM/DL 13.7-17.5 L HEMATOCRIT (BEAKER) (test code = 411) 38.7 % 40.1-51.0 L MEAN CORPUSCULAR VOLUME (BEAKER) (test code = 753) 95.6 fL 79. 0-92.2 H MEAN CORPUSCULAR HEMOGLOBIN (BEAKER) (test code = 751) 32.3 pg 25.7-32.2 H MEAN CORPUSCULAR HEMOGLOBIN CONC (BEAKER) (test code = 752) 33.9 GM/DL 32.3-36.5 RED CELL DISTRIBUTION WIDTH (BEAKER) (test code = 412) 13.4 % 11.6-14.4 PLATELET COUNT (BEAKER) (test code = 756) 245 K/CU MM 150-450 MEAN PLATELET VOLUME (BEAKER) (test code = 754) 10.0 fL 9.4-12 .4 NUCLEATED RED BLOOD CELLS (BEAKER) (test code = 413) 0 /100 WBC 0 -0 NEUTROPHILS RELATIVE PERCENT (BEAKER) (test code = 429) 82 % LYMPHOCYTES RELATIVE PERCENT (BEAKER) (test code = 430) 11 % MONOCYTES RELATIVE PERCENT (BEAKER) (test code = 431) 6 % EOSINOPHILS RELATIVE PERCENT (BEAKER) (test code = 432) 0 % BASOPHILS RELATIVE PERCENT (BEAKER) (test code = 437) 0 % NEUTROPHILS ABSOLUTE COUNT (BEAKER) (test code = 670) 10.29 K/ L 1.78-5.38 H LYMPHOCYTES ABSOLUTE COUNT (BEAKER) (test code = 414) 1.36 K/ L 1.32-3.57 MONOCYTES ABSOLUTE COUNT (BEAKER) (test code = 415) 0.70 K/ L 0. 30-0.82 EOSINOPHILS ABSOLUTE COUNT (BEAKER) (test code = 416) 0.05 K/ L 0.04-0.54 BASOPHILS ABSOLUTE COUNT (BEAKER) (test code = 417) 0.05 K/ L 0. 01-0.08 IMMATURE GRANULOCYTES-RELATIVE PERCENT (BEAKER) (test code = 2801) 1 % 0-1 Type and screen, [id number] 02:09:00* Test Item Value Reference Range Interpretation Comments ABO/RH AUTOMATED (BEAKER) (test code = 2260) A POSITIVE Ab Scrn (test code = 890-4) NEGATIVE [facility] [id number] 01:46:00* Test Item Value Reference Range Interpretation Comments POC-GLUCOSE METER (BEAKER) (test code = 1538) 150 mg/dL 70-110 H : TESTED AT [facility] [address] [place], [address]: Crayon Painter/Policyholder Information Clerk ID = [id number] for INDIRA HUERTA CT, CTANGIO [id number] 00:01:00FINAL REPORT EXAM: CT, CTANGIO BRAIN, CT, CAROTID, [...] technique. COMPARISON: CTA from four hours prior. FINDINGS:CT HEAD: Parenchyma: There is new acute intraparenchymal hemorrhage centered at the posterior left temporal lobe consistent with hemorrhagic conversion of the posterior left MCA territory infarction with measurements of approximately 7.5 x 4.1 x 5.2 cm (80 cc). There is associated effacement of the left lateral ventricle with trace 0.2 shift of midline structures from left to right inc reased compared to prior. No evidence of intraventricular extension of hemorrhag e. No evidence of active extravasation when correlated to CTA. Extra-axial Colle ction: None Ventricular System: No hydrocephalus. Paranasal Sinuses: Predomin antly clear Tympanomastoid Cavities: Normal Other: Atherosclerotic intracrania l calcifications are present. CTA HEAD: Anterior Circulation:Right intracranial internal carotid artery (ICA): Moderate atherosclerotic narrowing of the cavern ous and supraclinoid segments.Right anterior cerebral artery (HELENA): NormalRight middle cerebral artery (MCA): Normal Left intracranial internal carotid artery ( ICA): Mild atherosclerotic narrowing of the cavernous and supraclinoid segments. Left anterior cerebral artery (HELENA): NormalLeft middle cerebral artery (MCA): No rmal Anterior communicating artery (AComm): PresentPosterior communicating arter ies (PComm): Left PComm present. Right PComm not well visualized. Posterior Circ ulation:Right posterior cerebral artery (VIDEO LIBRARY ASSISTANT): NormalLeft posterior cerebral art cecilia (VIDEO LIBRARY ASSISTANT): Hypoplastic P1 segment with the remainder of the left VIDEO LIBRARY ASSISTANT supplied by the left posterior communicating artery. Right vertebral artery (VA): NormalLef t vertebral artery (VA): NormalBasilar artery (BA): Normal Other: Normal Dural V enous Sinuses: Normal CTA NECK:Aortic arch and proximal great vessels: Atheros clerotic changes without significant narrowing. Right carotid arterial system: Mild (<50%) internal carotid artery narrowing from atherosclerosis of the bifurcation. Left carotid arterial system: Mild (<50%) internal carotid artery narrowing within the ICA stent secondary to posterior mural thrombus not changed compared to recent prior. Right vertebral artery: Severe atherosclerotic narrowing at the origin with patency distally.Left vertebral artery: Severe atherosclerotic narrowing at the origin Where applicable, evaluation of internal carotid artery (ICA) stenosis was performed using NASC ET-like criteria, where the site of greatest stenosis is compared to the diamete r of the ICA distal to the stenosis at a point where the ICA schmid become parall el. Neck Soft Tissues: Unremarkable Osseous Structures: No acute osseous abnorm ality Included Lung Apices: Centrilobular emphysema. IMPRESSION: 1. Left MCA ter ritory infarction with interval large hemorrhagic conversion. Trace shift of mid line structures from left to right increased compared to prior.2. No short-term interval change on CTA of the head and neck. No acute interval vascular abnormal ity. Critical findings were relayed to the neurology resident at 11:36 PM 020. Signed: Scot Sotomayor MDReport Verified Date/Time: 06/21/2019 00:01:37 , CAROTID, [id number] 00:01:00FINAL REPORT EXAM: CT, CTANGIO BRAIN, CT, CAROTID, ANGIO CLINICAL INDICATION: Intracranial hemorrhage suspected. Worsening mental status. TECHNIQUE: Helical CT of the head without IV contrast. Postcontrast CTA of the head and CTA of the neck with IV contrast. Multiplanar reconstructed images. 3D reconstructions with MIP images were performed. This exam was performed according to our departmental dose- optimization program, which includes automated exposure control, adjustment of the mA and/or kV according to patient size and/or use of iterative reconstruction technique. COMPARISON: CTA from four hours prior. FINDINGS:CT HEAD: Parenchyma: There is new acute intraparenchymal hemorrhage centered at the posterior left temporal lobe consistent with hemorrhagic conversion of the posterior left MCA territory infarction with measurements of approximately 7.5 x 4.1 x 5.2 cm (80 cc). There is associated effacement of the left lateral ventricle with trace 0.2 shift of midline structures from left to right inc reased compared to prior. No evidence of intraventricular extension of hemorrhag e. No evidence of active extravasation when correlated to CTA. Extra-axial Colle ction: None Ventricular System: No hydrocephalus. Paranasal Sinuses: Predomin antly clear Tympanomastoid Cavities: Normal Other: Atherosclerotic intracrania l calcifications are present. CTA HEAD: Anterior Circulation:Right intracranial internal carotid artery (ICA): Moderate atherosclerotic narrowing of the cavern ous and supraclinoid segments.Right anterior cerebral artery (HELENA): NormalRight middle cerebral artery (MCA): Normal Left intracranial internal carotid artery ( ICA): Mild atherosclerotic narrowing of the cavernous and supraclinoid segments. Left anterior cerebral artery (HELENA): NormalLeft middle cerebral artery (MCA): No rmal Anterior communicating artery (AComm): PresentPosterior communicating arter ies (PComm): Left PComm present. Right PComm not well visualized. Posterior Circ ulation:Right posterior cerebral artery (VIDEO LIBRARY ASSISTANT): NormalLeft posterior cerebral art cecilia (VIDEO LIBRARY ASSISTANT): Hypoplastic P1 segment with the remainder of the left VIDEO LIBRARY ASSISTANT supplied by the left posterior communicating artery. Right vertebral artery (VA): NormalLef t vertebral artery (VA): NormalBasilar artery (BA): Normal Other: Normal Dural V enous Sinuses: Normal CTA NECK:Aortic arch and proximal great vessels: Atheros clerotic changes without significant narrowing. Right carotid arterial system: Mild (<50%) internal carotid artery narrowing from atherosclerosis of the bifurcation. Left carotid arterial system: Mild (<50%) internal carotid artery narrowing within the ICA stent secondary to posterior mural thrombus not changed compared to recent prior. Right vertebral artery: Severe atherosclerotic narrowing at the origin with patency distally.Left vertebral artery: Severe atherosclerotic narrowing at the origin Where applicable, evaluation of internal carotid artery (ICA) stenosis was performed using NASC ET-like criteria, where the site of greatest stenosis is compared to the diamete r of the ICA distal to the stenosis at a point where the ICA schmid become parall el. Neck Soft Tissues: Unremarkable Osseous Structures: No acute osseous abnorm ality Included Lung Apices: Centrilobular emphysema. IMPRESSION: 1. Left MCA ter ritory infarction with interval large hemorrhagic conversion. Trace shift of mid line structures from left to right increased compared to prior.2. No short-term interval change on CTA of the head and neck. No acute interval vascular abnormal ity. Critical findings were relayed to the neurology resident at 11:36 PM 020. Signed: Scot Sotomayorort Verified Date/Time: 06/21/2019 00:01:37 brain 2019-06-21 00:01:00Interface, External Ris In - 06/21/2019 12:03 AM CSTFINAL REPORT EXAM: CT, CTANGIO BRAIN, CT, CAROTID, [...] technique. COMPARISON: CTA from four hours prior. FINDINGS:CT HEAD: Parenchyma: There is new acute intraparenchymal [...] intracranial calcifications are present. CTA HEAD: Anterior Circulation:Right intracranial internal carotid artery (ICA): Moderate atherosclerotic narrowing of the cavernous and supraclinoid segment s.Right anterior cerebral artery (HELENA): NormalRight middle cerebral artery (MCA) : Normal Left intracranial internal carotid artery (ICA): Mild atherosclerotic n arrowing of the cavernous and supraclinoid segments.Left anterior cerebral arter y (HELENA): NormalLeft middle cerebral artery (MCA): Normal Anterior communicating artery (AComm): PresentPosterior communicating arteries (PComm): Left PComm pres ent. Right PComm not well visualized. Posterior Circulation:Right posterior cere bral artery (VIDEO LIBRARY ASSISTANT): NormalLeft posterior cerebral artery (VIDEO LIBRARY ASSISTANT): Hypoplastic P1 se gment with the remainder of the left VIDEO LIBRARY ASSISTANT supplied by the left posterior communic ating artery. Right vertebral artery (VA): NormalLeft vertebral artery (VA): Nor malBasilar artery (BA): Normal Other: Normal Dural Venous Sinuses: Normal CTA NECK:Aortic arch and proximal great vessels: Atherosclerotic changes without sig nificant narrowing. Right carotid arterial system: Mild (<50%) internal carotid artery narrowing from atherosclerosis of the bifurcation. Left carotid arterial system: Mild (<50%) internal carotid artery narrowing within the ICA stent secondary to posterior mural thrombus not changed compared to recent prior. Right vertebral artery: Severe atherosclerotic narrowing at the origin with patency distally.Left vertebral artery: Severe atherosclerotic narrowing at the [...] IMPRESSION: 1. Left MCA territory infarction with interval large hemorrhagic conversion. Trace shift of midline structures from left to right increased compared to prior.2. No short-term interval change on CTA of the head and neck. No acute interval vascular abnormality. Critical findings were relayed to the neurology resident at 11:36 PM 06/20/2019. Signed: Scot Sotomayor MDReport Verified Date/Time: 06/21/2019 00:01:37 [facility] [id number] 00:01:00Interface, External Ris In - 06/21/2019 12:03 AM CSTFINAL REPORT EXAM: CT, CTANGIO BRAIN, CT, CAROTID, ANGIO CLINICAL INDICATION: Intracranial hemorrhage suspected. Worsening mental status. TECHNIQUE: Helical CT of the head without IV contrast. Postcontrast CTA of the head and CTA of the neck with IV contrast. Multiplanar reconstructed images. 3D reconstructions with MIP images were performed. This exam was performed according to our departmental dose- optimization program, which includes automated exposure control, adjustment of the mA and/or kV according to patient size and/or use of iterative reconstruc tion technique. COMPARISON: CTA from four hours prior. FINDINGS:CT HEAD: Parench yma: There is new acute intraparenchymal hemorrhage centered at the posterior le ft temporal lobe consistent with hemorrhagic conversion of the posterior left MC A territory infarction with measurements of approximately 7.5 x 4.1 x 5.2 cm (80 cc). There is associated effacement of the left lateral ventricle with trace 0. 2 shift of midline structures from left to right increased compared to prior. No evidence of intraventricular extension of hemorrhage. No evidence of active ext ravasation when correlated to CTA. Extra-axial Collection: None Ventricular Sys tem: No hydrocephalus. Paranasal Sinuses: Predominantly clear Tympanomastoid C avities: Normal Other: Atherosclerotic intracranial calcifications are present . CTA HEAD: Anterior Circulation:Right intracranial internal carotid artery (IC A): Moderate atherosclerotic narrowing of the cavernous and supraclinoid segment s.Right anterior cerebral artery (HELENA): NormalRight middle cerebral artery (MCA) : Normal Left intracranial internal carotid artery (ICA): Mild atherosclerotic n arrowing of the cavernous and supraclinoid segments.Left anterior cerebral arter y (HELENA): NormalLeft middle cerebral artery (MCA): Normal Anterior communicating artery (AComm): PresentPosterior communicating arteries (PComm): Left PComm pres ent. Right PComm not well visualized. Posterior Circulation:Right posterior cere bral artery (VIDEO LIBRARY ASSISTANT): NormalLeft posterior cerebral artery (VIDEO LIBRARY ASSISTANT): Hypoplastic P1 se gment with the remainder of the left VIDEO LIBRARY ASSISTANT supplied by the left posterior communic ating artery. Right vertebral artery (VA): NormalLeft vertebral artery (VA): Nor malBasilar artery (BA): Normal Other: Normal Dural Venous Sinuses: Normal CTA NECK:Aortic arch and proximal great vessels: Atherosclerotic changes without sig nificant narrowing. Right carotid arterial system: Mild (<50%) internal carotid artery narrowing from atherosclerosis of the bifurcation. Left carotid arterial system: Mild (<50%) internal carotid artery narrowing within the ICA stent secondary to posterior mural thrombus not changed compared to recent prior. Right vertebral artery: Severe atherosclerotic narrowing at the origin with patency distally.Left vertebral artery: Severe atherosclerotic narrowing at the [...] IMPRESSION: 1. Left MCA territory infarction with interval large hemorrhagic conversion. Trace shift of midline structures from left to right increased compared to prior.2. No short-term interval change on CTA of the head and neck. No acute interval vascular abnormality. Critical findings were relayed to the neurology resident at 11:36 PM 06/20/2019. Signed: Scot Sotomayor Verified Date/Time: 06/21/2019 00:01:37 [facility] [id number] 23:07:00* Test Item Value Reference Range Interpretation Comments POC-GLUCOSE METER (BEAKER) (test code = 1538) 139 mg/dL 70-110 H : TESTED AT [facility] [address] [facility], [address]: Crayon Painter/Policyholder Information Clerk ID = [id number] for MARCO ANTONIO MCQUEEN MR, BRAIN, WITHOUT [id number] 22:53:00FINAL REPORT EXAM: MR, BRAIN, WITHOUT CONTRAST CLINICAL INDICATION: TIA. Neurologic deficit. TECHNIQUE: Sagittal and coronal T1-w and axial T2-FLAIR, GRE, fat- saturated T2-w, and diffusion-w images of the brain with ADC maps. COMPARISON: None. FINDINGS:Parenchyma: There is a late acute to subacute [...] Sinuses: Predominantly clear Tympanomastoid Cavities: Normal IMPRESSION: L ate acute to subacute infarction in the left superior temporal gyrus with petech ial hemorrhage. Adjacent sulci with FLAIR nonsuppression suggestive of either ve nous congestion or small subarachnoid hemorrhage. Background of mild chronic whi te matter ischemic changes. Signed: Scot Sotomayorort Verified Date/Time: 0 06/20/2019 22:53:06 Electronically signed by: SCOT SOTOMAYOR MD on 020 10:53 PM MR brain without IV [id number] 22:53:00Interface, External Ris In - 06/20/2019 10:56 PM CSTFINAL REPORT EXAM: MR, BRAIN, WITHOUT CONTRAST CLINICAL INDICATION: TIA. Neurologic deficit. TECHNIQUE: Sagittal and coronal T1-w and axial T2-FLAIR, GRE, fat-saturated T2- w, and diffusion-w images of the brain with ADC maps. COMPARISON: None. FINDINGS:Parenchyma: There is a late acute to subacute infarction with mild res tricted diffusion in the left superior temporal gyrus of the posterior left MCA territory (putative Wernicke territory). Associated T2/FLAIR signal. Petechial h emorrhage is present. Mild associated edema and mass effect without shift of mid line structures. Scattered foci of T2 hyperintensity are present in the cerebral white matter that are nonspecific but compatible with mild chronic micr ovascular ischemic changes. Extra-axial Collection: FLAIR nonsuppression and t he sulci adjacent to the infarction. Ventricular System: No hydrocephalus Major Intracranial Flow Voids: Normal Osseous Structures: Expected marrow signal. Inc luded Orbits: Prior bilateral lens surgery Paranasal Sinuses: Predominantly carey ar Tympanomastoid Cavities: Normal IMPRESSION: Late acute to subacute infarc tion in the left superior temporal gyrus with petechial hemorrhage. Adjacent sul ci with FLAIR nonsuppression suggestive of either venous congestion or small sub arachnoid hemorrhage. Background of mild chronic white matter ischemic changes. Signed: Scot Sotomayor Verified Date/Time: 06/20/2019 22:53:06 El ectronically signed by: SCOT SOTOMAYOR MD on 06/20/2019 10:53 PM [facility], CAROTID, [id number] 19:22:00Reason for exam:->NEUROLOGIC PROBLEMWhat is the patient's sedation requirement?->No SedationFINAL REPORT EXAM: CT, CT Angio, Brain. CT Carotid Angio CLINICAL HISTORY: Neuro deficit, acute, stroke suspected. NEUROLOGIC PROBLEM COMPARISON: None. TECHNIQUE: CT angiogram of the head and neck was performed with intravenous contrast. 3-D reformatted images were obtained. This exam was perfo rmed according to our departmental dose optimization program which includes auto mated exposure control, adjustment of the mA and/or kV according to patient's si ze and/or use of iterative reconstructive technique. FINDINGS: CTA head: There are atherosclerotic calcifications of the bilateral carotid siphons and left int radural vertebral artery. There is good flow related enhancement of the bilater al anterior, middle and posterior cerebral arteries and within the basilar arter y. The intracranial and skull base internal carotid arteries as well as the vert ebral arteries demonstrate normal flow-related enhancement. There is no vessel o cclusion or flow-limiting stenosis. There is no vascular aneurysm. CTA neck: Th e visualized aortic arch and great vessel origins are unremarkable except for a bovine arch and calcific atherosclerosis. There is a left common carotid/proxima l cervical ICA stent. There is good flow related enhancement of the bilateral co mmon and internal carotid arteries. There is mild short segment stenosis of the proximal left cervical ICA from its origin due to eccentric mural plaque measuri ng approximately 38% by NASCET criteria. There are atheromatous changes of the r ight carotid bulb with calcified and noncalcified plaque. There are atherosclero tic calcifications of the bilateral vertebral arteries. There is severe stenosis of the right vertebral artery origin due to calcified and noncalcified mural pl aque. There is moderate stenosis of the left vertebral artery origin due to calc ified and noncalcified mural plaque. There is mild kinking of the left vertebral artery at the left C2 neural foramina. There is no vessel occlusion or hemodyn amically significant stenosis by NASCET criteria. There is no vascular aneurysm or arterial dissection. There is mild centrilobular emphysema. There are degene rative changes of the visualized spine. IMPRESSION: CTA head: No vessel occlusi on or flow-limiting stenosis. CTA neck: Left common carotid/proximal cervical IC A stent. Mild short segment stenosis of the proximal left cervical ICA from its origin due to mural plaque. No vessel occlusion or hemodynamically significant s tenosis by NASCET criteria in the extracranial carotid circulation. Severe steno sis of the right and moderate stenosis of the left vertebral artery origins. Sig luis: Shayan Cormier MDReport Verified Date/Time: 06/20/2019 19:22:17 Electro nically signed by: SHAYAN CORMIER MD on 06/20/2019 07:[address], CTANGIO [id number] 19:22:00FINAL REPORT EXAM: CT, CT Angio, Brain. CT Carotid Angio CLINICAL HISTORY: Neuro deficit, acute, stroke suspected. NEUROLOGIC PROBLEM COMPARISON: None. TECHNIQUE: CT angiogram of the head and neck was performed with intravenous contrast. 3-D reformatted images were obtained. This exam was performed according to our departmental dose optimization program which includes automated exposure control, adjustment of the mA and/or kV according to patient's size and/or use of iterative reconstructive technique. FINDINGS: CTA head: There are atherosclerotic calcifications of the bilateral carotid siphons and left intradural vertebral artery. There is good flow related enhancement of the bilateral anterior, middle and posterior cerebral arteries and within the basilar artery. The intracranial and skull base internal carotid arteries as well as the vertebral arteries demonstrate normal flow-related enhancement. There is no vessel o cclusion or flow-limiting stenosis. There is no vascular aneurysm. CTA neck: Th e visualized aortic arch and great vessel origins are unremarkable except for a bovine arch and calcific atherosclerosis. There is a left common carotid/proxima l cervical ICA stent. There is good flow related enhancement of the bilateral co mmon and internal carotid arteries. There is mild short segment stenosis of the proximal left cervical ICA from its origin due to eccentric mural plaque measuri ng approximately 38% by NASCET criteria. There are atheromatous changes of the r ight carotid bulb with calcified and noncalcified plaque. There are atherosclero tic calcifications of the bilateral vertebral arteries. There is severe stenosis of the right vertebral artery origin due to calcified and noncalcified mural pl aque. There is moderate stenosis of the left vertebral artery origin due to calc ified and noncalcified mural plaque. There is mild kinking of the left vertebral artery at the left C2 neural foramina. There is no vessel occlusion or hemodyn amically significant stenosis by NASCET criteria. There is no vascular aneurysm or arterial dissection. There is mild centrilobular emphysema. There are degene rative changes of the visualized spine. IMPRESSION: CTA head: No vessel occlusi on or flow-limiting stenosis. CTA neck: Left common carotid/proximal cervical IC A stent. Mild short segment stenosis of the proximal left cervical ICA from its origin due to mural plaque. No vessel occlusion or hemodynamically significant s tenosis by NASCET criteria in the extracranial carotid circulation. Severe steno sis of the right and moderate stenosis of the left vertebral artery origins. Sig luis: Shayan Cormier MDReport Verified Date/Time: 06/20/2019 19:22:17 Electro nically signed by: SHAYAN CORMIER MD on 06/20/2019 07:22 PM TROPONIN I 2019-06-20 19:13:00* Test Item Value Reference Range Interpretation Comments TROPONIN I (BEAKER) (test code = 397) < ng/mL 0.00-0.03 Troponin I (TnI) levels must be interpreted in the context of the presenting sym ptoms and the clinical findings. Elevated TnI levels indicate myocardial damage, but are not specific for ischemic heart disease. Elevated TnI levels are seen i n patients with other cardiac conditions (including myocarditis and congestive h eart failure), and slight TnI elevations occur in patients with other conditions , including sepsis, renal failure, acidosis, acute neurological disease, and per sistent tachyarrhythmia.Crayon Painter ID Tamy BLANCA FB-type Natriuretic Factor (BNP) 2019-06-20 19:12:00* Test Item Value Reference Range Interpretation Comments BNP (test code = 78923-5) 50 pg/mL 0-100 ANA (test code = ANA) Crayon Painter ID Tamy BLANCA F Lab Interpretation (test code = 06783-0) Normal [facility] (BNP)2019-06-20 19:12:00 * Test Item Value Reference Range Interpretation Comments B-TYPE NATRIURETIC PEPTIDE (BEAKER) (test code = 700) 50 pg/mL 0-100 Crayon Painter ID Tamy BLANCA [id number] 19:03:00* Test Item Value Reference Range Interpretation Comments MAGNESIUM (BEAKER) (test code = 627) 1.7 mg/dL 1.6-2.6 Crayon Painter ID Tamy BLANCA FBASIC METABOLIC [id number] 19:03:00* Test Item Value Reference Range Interpretation Comments SODIUM (BEAKER) (test code = 381) 137 meq/L 136-145 POTASSIUM (BEAKER) (test code = 379) 3.8 meq/L 3.5-5.1 CHLORIDE (BEAKER) (test code = 382) 107 meq/L 98-107 CO2 (BEAKER) (test code = 355) 24 meq/L 22-29 BLOOD UREA NITROGEN (BEAKER) (test code = 354) 20 mg/dL 7-21 CREATININE (BEAKER) (test code = 358) 1.17 mg/dL 0.57-1.25 GLUCOSE RANDOM (BEAKER) (test code = 652) 116 mg/dL 70-105 H CALCIUM (BEAKER) (test code = 697) 9.1 mg/dL 8.4-10.2 EGFR (BEAKER) (test code = 1092) 61 mL/min/1.73 sq m ESTIMATED GFR IS NOT ACCURATE CREATININE CLEARANCE IN PREDICTING GLOMERULAR FILTRATION RATE. ESTIMATED GFR IS NOT APPLICABLE FOR DIALYSIS PATIENTS. Crayon Painter HUSEYIN - RIANNA FCBC W/PLT COUNT & AUTO [id number] 18:51:00* Test Item Value Reference Range Interpretation Comments WHITE BLOOD CELL COUNT (BEAKER) (test code = 775) 7.1 K/ L 3.5- 10.5 RED BLOOD CELL COUNT (BEAKER) (test code = 761) 4.26 M/ L 4.63-6 .08 L HEMOGLOBIN (BEAKER) (test code = 410) 13.7 GM/DL 13.7-17.5 HEMATOCRIT (BEAKER) (test code = 411) 40.4 % 40.1-51.0 MEAN CORPUSCULAR VOLUME (BEAKER) (test code = 753) 94.8 fL 79. 0-92.2 H MEAN CORPUSCULAR HEMOGLOBIN (BEAKER) (test code = 751) 32.2 pg 25.7-32.2 MEAN CORPUSCULAR HEMOGLOBIN CONC (BEAKER) (test code = 752) 33.9 GM/DL 32.3-36.5 RED CELL DISTRIBUTION WIDTH (BEAKER) (test code = 412) 13.4 % 11.6-14.4 PLATELET COUNT (BEAKER) (test code = 756) 264 K/CU MM 150-450 MEAN PLATELET VOLUME (BEAKER) (test code = 754) 9.7 fL 9.4-12 .4 NUCLEATED RED BLOOD CELLS (BEAKER) (test code = 413) 0 /100 WBC 0 -0 NEUTROPHILS RELATIVE PERCENT (BEAKER) (test code = 429) 54 % LYMPHOCYTES RELATIVE PERCENT (BEAKER) (test code = 430) 31 % MONOCYTES RELATIVE PERCENT (BEAKER) (test code = 431) 11 % EOSINOPHILS RELATIVE PERCENT (BEAKER) (test code = 432) 3 % BASOPHILS RELATIVE PERCENT (BEAKER) (test code = 437) 1 % NEUTROPHILS ABSOLUTE COUNT (BEAKER) (test code = 670) 3.83 K/ L 1.78-5.38 LYMPHOCYTES ABSOLUTE COUNT (BEAKER) (test code = 414) 2.16 K/ L 1.32-3.57 MONOCYTES ABSOLUTE COUNT (BEAKER) (test code = 415) 0.76 K/ L 0. 30-0.82 EOSINOPHILS ABSOLUTE COUNT (BEAKER) (test code = 416) 0.21 K/ L 0.04-0.54 BASOPHILS ABSOLUTE COUNT (BEAKER) (test code = 417) 0.07 K/ L 0. 01-0.08 IMMATURE GRANULOCYTES-RELATIVE PERCENT (BEAKER) (test code = 2801) 0 % 0-1 [id number] 18:47:00* Test Item Value Reference Range Interpretation Comments Protime (test code = 5902-2) 13.3 11.9- 14.2 seconds INR (test code = 6301-6) 1.0 <=5.9 PTT (test code = 49619-1) 27.6 22.5- 36.0 seconds ANA (test code = ANA) Effective 11/04/2018: PT Refe rence Range ChangeNew: 11.9- 14.2 Previous: 11.7-14.7 RECOMMENDED COUMADIN/WARFARIN INR THERAPY RANGESSTANDARD DOSE: 2.0-3.0 Includes: PROPHYLAXIS for venous thrombosis, sys temic embolization; TREATMENT for venous thrombosis and/or pulmonary embolus.HIGH RISK: Target INR is 2.5-3.5 for patients wiht mechanical heart valves. Lab Interpretation (test code = 72383-9) Normal [facility]PT/[id number] 18:47:00* Test Item Value Reference Range Interpretation Comments PROTIME (BEAKER) (test code = 759) 13.3 seconds 11.9-14.2 INR (BEAKER) (test code = 370) 1.0 <=5.9 PARTIAL THROMBOPLASTIN TIME (BEAKER) (test code = 760) 27.6 seconds 22.5-36.0 Effective 11/04/2018: PT Reference Range ChangeNew: 11.9-14.2 Previous: 11.7-14. 7RECOMMENDED COUMADIN/WARFARIN INR THERAPY RANGESSTANDARD DOSE: 2.0-3.0 Include s: PROPHYLAXIS for venous thrombosis, systemic embolization; TREATMENT for venou s thrombosis and/or pulmonary embolus.HIGH RISK: Target INR is 2.5-3.5 for patie nts wiht mechanical heart valves.POCT-GLUCOSE [id number] 18:31:00* Test Item Value Reference Range Interpretation Comments POC-GLUCOSE METER ([employer]) (test code = 1538) 125 mg/dL 70-110 H : TESTED AT [facility] [address] [facility], [address]: Crayon Painter/Policyholder Information Clerk ID = [id number] for MAHI MANNING CT, BRAIN/STROKE [id number] 18:17:00Reason for exam:->r/o cvaWhat is the patient's sedation requirement?->No SedationFINAL REPORT CT, BRAIN/STROKE PROTOCOL CLINICAL INDICATION: Neuro deficit(s), subacuter/o cva COMPARISON: None TECHNIQUE: Noncontrast axial CT imaging of the brain and skull. DOSE REDUCTION: Dose modulation, iterative reconstruction, and/or weight-based adjustment of the mA/kV was utilized to reduce the radiation dose to as low as reasonably achievable. FINDINGS:No intracranial hemorrhage, midline shift or mass effect. Midline structures are normally developed. Mild chronic microvascular ischemic changes of the periventricular and subcortical white matter are present. No hydrocephalus. Orbits are within normal limits. No obstructive paranasal sinus disease. IMPRESSION: No acute intracranial findings Findings discussed with ED staff by Dr. Rivas If there is persistent clinical concern for intracranial pathology, MR examination is recommended for further characterization. Signed: Mimi Rivas MDReptip Verified Date/Time: 06/20/2019 18:17:13 Reading Location: [facility] C0[facility] Neuro Reading Room El ectronically signed by: MIMI RIVAS MD on 06/20/2019 06:[address] brain/stroke [id number] 18:17:00Interface, External Ris In - 06/20/2019 6:[address], BRAIN/STROKE PROTOCOL CLINICAL INDICATION: Neuro deficit(s), subacuter/o cva COMPARISON: None TECHNIQUE: Noncontrast axial CT imaging of the brain and skull. DOSE REDUCTION: Dose modulation, iterative reconstruction, and/or weight-based adjustment of the mA/kV was utilized to reduce the radiation dose to as low as reasonably achievable. FINDINGS:No intracranial hemorrhage, midline shift or mass effect. Midline structures are normally developed. Mild chronic joycelyn rovascular ischemic changes of the periventricular and subcortical white matter are present. No hydrocephalus. Orbits are within normal limits. No obstructive p aranasal sinus disease. IMPRESSION: No acute intracranial findings Findings dis cussed with ED staff by Dr. Rivas If there is persistent clinical concern for intracranial pathology, MR examination is recommended for further characterizat ion. Signed: Mimi Rivas MDReport Verified Date/Time: 06/20/2019 18:17:13 R sapphire Location: [address] Neuro Reading Room [facility] [id number] 05:31:00* Test Item Value Reference Range Interpretation Comments MAGNESIUM (BEAKER) (test code = 627) 1.9 mg/dL 1.6-2.6 Specimen slightly hemolyzed BASIC METABOLIC [id number] 05:31:00* Test Item Value Reference Range Interpretation Comments SODIUM (BEAKER) (test code = 381) 135 meq/L 136-145 L POTASSIUM (BEAKER) (test code = 379) 4.2 meq/L 3.5-5.1 Specimen slightly hemolyzed CHLORIDE (BEAKER) (test code = 382) 105 meq/L 98-107 CO2 (BEAKER) (test code = 355) 22 meq/L 22-29 BLOOD UREA NITROGEN (BEAKER) (test code = 354) 20 mg/dL 7-21 CREATININE (BEAKER) (test code = 358) 1.01 mg/dL 0.57-1.25 Specimen slightly hemolyzed GLUCOSE RANDOM (BEAKER) (test code = 652) 100 mg/dL 70-105 CALCIUM (BEAKER) (test code = 697) 9.2 mg/dL 8.4-10.2 EGFR (BEAKER) (test code = 1092) 73 mL/min/1.73 sq m ESTIMATED GFR IS NOT ACCURATE CREATININE CLEARANCE IN PREDICTING GLOMERULAR FILTRATION RATE. ESTIMATED GFR IS NOT APPLICABLE FOR DIALYSIS PATIENTS. CBC (HEMOGRAM ONLY)2018-07-16 05:04:00* Test Item Value Reference Range Interpretation Comments WHITE BLOOD CELL COUNT (BEAKER) (test code = 775) 8.5 K/ L 3.5- 10.5 RED BLOOD CELL COUNT (BEAKER) (test code = 761) 4.03 M/ L 4.63-6 .08 L HEMOGLOBIN (BEAKER) (test code = 410) 13.0 GM/DL 13.7-17.5 L HEMATOCRIT (BEAKER) (test code = 411) 38.9 % 40.1-51.0 L MEAN CORPUSCULAR VOLUME (BEAKER) (test code = 753) 96.5 fL 79. 0-92.2 H MEAN CORPUSCULAR HEMOGLOBIN (BEAKER) (test code = 751) 32.3 pg 25.7-32.2 H MEAN CORPUSCULAR HEMOGLOBIN CONC (BEAKER) (test code = 752) 33.4 GM/DL 32.3-36.5 RED CELL DISTRIBUTION WIDTH (BEAKER) (test code = 412) 13.7 % 11.6-14.4 PLATELET COUNT (BEAKER) (test code = 756) 236 K/CU MM 150-450 MEAN PLATELET VOLUME (BEAKER) (test code = 754) 9.8 fL 9.4-12 .4 NUCLEATED RED BLOOD CELLS (BEAKER) (test code = 413) 0 /100 WBC 0 -0 PLATELET AGGREGATION: FUNCTION [id number] 16:11:00* Test Item Value Reference Range Interpretation Comments WEAK ADP RESULT(BEAKER) (test code = 2135) 73 % 60-91 PLATELET FUNCTION SCREEN INTERP (BEAKER) (test code = 2173) 60-100% indicates normal platelet function [id number] (BEAKER) (test code = 2622) Kelsea Miguel MD (electronic signature) PLATELET COUNT AGG (BEAKER) (test code = 2656) 214 K/CU MM 150-450 Platelet Function Screen results may be falsely low with platelet counts< 100,000/cu mm.[id number] 10:33:00* Test Item Value Reference Range Interpretation Comments ACTIVATED CLOTTING TIME (BEAKER) (test code = 441) 274 sec TESTED AT [facility] [address] [facility] [address] POCT-GLUCOSE [id number] 08:28:00* Test Item Value Reference Range Interpretation Comments POC-GLUCOSE METER (BEAKER) (test code = 1538) 106 mg/dL 70-110 TESTED AT [facility] [address] [facility] [address] [id number] 04:56:00* Test Item Value Reference Range Interpretation Comments PARTIAL THROMBOPLASTIN TIME (BEAKER) (test code = 760) 99.5 seconds 22.5-36.0 H [id number] 04:48:00* Test Item Value Reference Range Interpretation Comments MAGNESIUM (BEAKER) (test code = 627) 1.9 mg/dL 1.6-2.6 BASIC METABOLIC [id number] 04:48:00* Test Item Value Reference Range Interpretation Comments SODIUM (BEAKER) (test code = 381) 138 meq/L 136-145 POTASSIUM (BEAKER) (test code = 379) 4.5 meq/L 3.5-5.1 CHLORIDE (BEAKER) (test code = 382) 105 meq/L 98-107 CO2 (BEAKER) (test code = 355) 25 meq/L 22-29 BLOOD UREA NITROGEN (BEAKER) (test code = 354) 23 mg/dL 7-21 H CREATININE (BEAKER) (test code = 358) 1.27 mg/dL 0.57-1.25 H GLUCOSE RANDOM (BEAKER) (test code = 652) 108 mg/dL 70-105 H CALCIUM (BEAKER) (test code = 697) 9.3 mg/dL 8.4-10.2 EGFR (BEAKER) (test code = 1092) 56 mL/min/1.73 sq m ESTIMATED GFR IS NOT ACCURATE CREATININE CLEARANCE IN PREDICTING GLOMERULAR FILTRATION RATE. ESTIMATED GFR IS NOT APPLICABLE FOR DIALYSIS PATIENTS. CBC W/PLT COUNT & AUTO [id number] 04:38:00* Test Item Value Reference Range Interpretation Comments WHITE BLOOD CELL COUNT (BEAKER) (test code = 775) 8.3 K/ L 3.5- 10.5 RED BLOOD CELL COUNT (BEAKER) (test code = 761) 4.27 M/ L 4.63-6 .08 L HEMOGLOBIN (BEAKER) (test code = 410) 13.9 GM/DL 13.7-17.5 HEMATOCRIT (BEAKER) (test code = 411) 41.3 % 40.1-51.0 MEAN CORPUSCULAR VOLUME (BEAKER) (test code = 753) 96.7 fL 79. 0-92.2 H MEAN CORPUSCULAR HEMOGLOBIN (BEAKER) (test code = 751) 32.6 pg 25.7-32.2 H MEAN CORPUSCULAR HEMOGLOBIN CONC (BEAKER) (test code = 752) 33.7 GM/DL 32.3-36.5 RED CELL DISTRIBUTION WIDTH (BEAKER) (test code = 412) 13.8 % 11.6-14.4 PLATELET COUNT (BEAKER) (test code = 756) 256 K/CU MM 150-450 MEAN PLATELET VOLUME (BEAKER) (test code = 754) 9.8 fL 9.4-12 .4 NUCLEATED RED BLOOD CELLS (BEAKER) (test code = 413) 0 /100 WBC 0 -0 NEUTROPHILS RELATIVE PERCENT (BEAKER) (test code = 429) 54 % LYMPHOCYTES RELATIVE PERCENT (BEAKER) (test code = 430) 30 % MONOCYTES RELATIVE PERCENT (BEAKER) (test code = 431) 10 % EOSINOPHILS RELATIVE PERCENT (BEAKER) (test code = 432) 5 % BASOPHILS RELATIVE PERCENT (BEAKER) (test code = 437) 1 % NEUTROPHILS ABSOLUTE COUNT (BEAKER) (test code = 670) 4.47 K/ L 1.78-5.38 LYMPHOCYTES ABSOLUTE COUNT (BEAKER) (test code = 414) 2.50 K/ L 1.32-3.57 MONOCYTES ABSOLUTE COUNT (BEAKER) (test code = 415) 0.85 K/ L 0. 30-0.82 H EOSINOPHILS ABSOLUTE COUNT (BEAKER) (test code = 416) 0.38 K/ L 0.04-0.54 BASOPHILS ABSOLUTE COUNT (BEAKER) (test code = 417) 0.09 K/ L 0. 01-0.08 H IMMATURE GRANULOCYTES-RELATIVE PERCENT (BEAKER) (test code = 2801) 0 % 0-1 [id number] 22:42:00* Test Item Value Reference Range Interpretation Comments PARTIAL THROMBOPLASTIN TIME (BEAKER) (test code = 760) 76.7 seconds 22.5-36.0 H [id number] 17:28:00* Test Item Value Reference Range Interpretation Comments PARTIAL THROMBOPLASTIN TIME (BEAKER) (test code = 760) 89.3 seconds 22.5-36.0 H [id number] 10:43:00* Test Item Value Reference Range Interpretation Comments PARTIAL THROMBOPLASTIN TIME (BEAKER) (test code = 760) 61.5 seconds 22.5-36.0 H [id number] 04:41:00* Test Item Value Reference Range Interpretation Comments MAGNESIUM (BEAKER) (test code = 627) 2.2 mg/dL 1.6-2.6 Specimen slightly hemolyzed BASIC METABOLIC [id number] 04:41:00* Test Item Value Reference Range Interpretation Comments SODIUM (BEAKER) (test code = 381) 137 meq/L 136-145 POTASSIUM (BEAKER) (test code = 379) 4.4 meq/L 3.5-5.1 Specimen slightly hemolyzed CHLORIDE (BEAKER) (test code = 382) 104 meq/L 98-107 CO2 (BEAKER) (test code = 355) 23 meq/L 22-29 BLOOD UREA NITROGEN (BEAKER) (test code = 354) 24 mg/dL 7-21 H CREATININE (BEAKER) (test code = 358) 1.23 mg/dL 0.57-1.25 Specimen slightly hemolyzed GLUCOSE RANDOM (BEAKER) (test code = 652) 108 mg/dL 70-105 H CALCIUM (BEAKER) (test code = 697) 9.6 mg/dL 8.4-10.2 EGFR (BEAKER) (test code = 1092) 58 mL/min/1.73 sq m ESTIMATED GFR IS NOT ACCURATE CREATININE CLEARANCE IN PREDICTING GLOMERULAR FILTRATION RATE. ESTIMATED GFR IS NOT APPLICABLE FOR DIALYSIS PATIENTS. [id number] 04:28:00* Test Item Value Reference Range Interpretation Comments PARTIAL THROMBOPLASTIN TIME (BEAKER) (test code = 760) 63.2 seconds 22.5-36.0 H CBC W/PLT COUNT & AUTO [id number] 04:16:00* Test Item Value Reference Range Interpretation Comments WHITE BLOOD CELL COUNT (BEAKER) (test code = 775) 8.0 K/ L 3.5- 10.5 RED BLOOD CELL COUNT (BEAKER) (test code = 761) 4.41 M/ L 4.63-6 .08 L HEMOGLOBIN (BEAKER) (test code = 410) 14.1 GM/DL 13.7-17.5 HEMATOCRIT (BEAKER) (test code = 411) 42.4 % 40.1-51.0 MEAN CORPUSCULAR VOLUME (BEAKER) (test code = 753) 96.1 fL 79. 0-92.2 H MEAN CORPUSCULAR HEMOGLOBIN (BEAKER) (test code = 751) 32.0 pg 25.7-32.2 MEAN CORPUSCULAR HEMOGLOBIN CONC (BEAKER) (test code = 752) 33.3 GM/DL 32.3-36.5 RED CELL DISTRIBUTION WIDTH (BEAKER) (test code = 412) 13.7 % 11.6-14.4 PLATELET COUNT (BEAKER) (test code = 756) 247 K/CU MM 150-450 MEAN PLATELET VOLUME (BEAKER) (test code = 754) 9.9 fL 9.4-12 .4 NUCLEATED RED BLOOD CELLS (BEAKER) (test code = 413) 0 /100 WBC 0 -0 NEUTROPHILS RELATIVE PERCENT (BEAKER) (test code = 429) 52 % LYMPHOCYTES RELATIVE PERCENT (BEAKER) (test code = 430) 31 % MONOCYTES RELATIVE PERCENT (BEAKER) (test code = 431) 11 % EOSINOPHILS RELATIVE PERCENT (BEAKER) (test code = 432) 5 % BASOPHILS RELATIVE PERCENT (BEAKER) (test code = 437) 1 % NEUTROPHILS ABSOLUTE COUNT (BEAKER) (test code = 670) 4.20 K/ L 1.78-5.38 LYMPHOCYTES ABSOLUTE COUNT (BEAKER) (test code = 414) 2.47 K/ L 1.32-3.57 MONOCYTES ABSOLUTE COUNT (BEAKER) (test code = 415) 0.86 K/ L 0. 30-0.82 H EOSINOPHILS ABSOLUTE COUNT (BEAKER) (test code = 416) 0.37 K/ L 0.04-0.54 BASOPHILS ABSOLUTE COUNT (BEAKER) (test code = 417) 0.10 K/ L 0. 01-0.08 H IMMATURE GRANULOCYTES-RELATIVE PERCENT (BEAKER) (test code = 2801) 0 % 0-1 [id number] 01:06:00* Test Item Value Reference Range Interpretation Comments PARTIAL THROMBOPLASTIN TIME (BEAKER) (test code = 760) 50.1 seconds 22.5-36.0 H [id number] 17:51:00* Test Item Value Reference Range Interpretation Comments PARTIAL THROMBOPLASTIN TIME (BEAKER) (test code = 760) 64.3 seconds 22.5-36.0 H [id number] 10:36:00* Test Item Value Reference Range Interpretation Comments PARTIAL THROMBOPLASTIN TIME (BEAKER) (test code = 760) 112.9 sec onds 22.5-36.0 H [id number] 07:44:00* Test Item Value Reference Range Interpretation Comments PARTIAL THROMBOPLASTIN TIME (BEAKER) (test code = 760) 131.7 sec onds 22.5-36.0 H [id number] 05:47:00* Test Item Value Reference Range Interpretation Comments PARTIAL THROMBOPLASTIN TIME (BEAKER) (test code = 760) 109.9 sec onds 22.5-36.0 H [id number] 05:07:00* Test Item Value Reference Range Interpretation Comments MAGNESIUM (BEAKER) (test code = 627) 2.1 mg/dL 1.6-2.6 BASIC METABOLIC [id number] 05:07:00* Test Item Value Reference Range Interpretation Comments SODIUM (BEAKER) (test code = 381) 136 meq/L 136-145 POTASSIUM (BEAKER) (test code = 379) 4.2 meq/L 3.5-5.1 CHLORIDE (BEAKER) (test code = 382) 103 meq/L 98-107 CO2 (BEAKER) (test code = 355) 23 meq/L 22-29 BLOOD UREA NITROGEN (BEAKER) (test code = 354) 23 mg/dL 7-21 H CREATININE (BEAKER) (test code = 358) 1.16 mg/dL 0.57-1.25 GLUCOSE RANDOM (BEAKER) (test code = 652) 107 mg/dL 70-105 H CALCIUM (BEAKER) (test code = 697) 9.6 mg/dL 8.4-10.2 EGFR (BEAKER) (test code = 1092) 62 mL/min/1.73 sq m ESTIMATED GFR IS NOT ACCURATE CREATININE CLEARANCE IN PREDICTING GLOMERULAR FILTRATION RATE. ESTIMATED GFR IS NOT APPLICABLE FOR DIALYSIS PATIENTS. CBC W/PLT COUNT & AUTO [id number] 04:56:00* Test Item Value Reference Range Interpretation Comments WHITE BLOOD CELL COUNT (BEAKER) (test code = 775) 9.0 K/ L 3.5- 10.5 RED BLOOD CELL COUNT (BEAKER) (test code = 761) 4.38 M/ L 4.63-6 .08 L HEMOGLOBIN (BEAKER) (test code = 410) 13.9 GM/DL 13.7-17.5 HEMATOCRIT (BEAKER) (test code = 411) 41.9 % 40.1-51.0 MEAN CORPUSCULAR VOLUME (BEAKER) (test code = 753) 95.7 fL 79. 0-92.2 H MEAN CORPUSCULAR HEMOGLOBIN (BEAKER) (test code = 751) 31.7 pg 25.7-32.2 MEAN CORPUSCULAR HEMOGLOBIN CONC (BEAKER) (test code = 752) 33.2 GM/DL 32.3-36.5 RED CELL DISTRIBUTION WIDTH (BEAKER) (test code = 412) 13.7 % 11.6-14.4 PLATELET COUNT (BEAKER) (test code = 756) 252 K/CU MM 150-450 MEAN PLATELET VOLUME (BEAKER) (test code = 754) 9.8 fL 9.4-12 .4 NUCLEATED RED BLOOD CELLS (BEAKER) (test code = 413) 0 /100 WBC 0 -0 NEUTROPHILS RELATIVE PERCENT (BEAKER) (test code = 429) 57 % LYMPHOCYTES RELATIVE PERCENT (BEAKER) (test code = 430) 28 % MONOCYTES RELATIVE PERCENT (BEAKER) (test code = 431) 10 % EOSINOPHILS RELATIVE PERCENT (BEAKER) (test code = 432) 4 % BASOPHILS RELATIVE PERCENT (BEAKER) (test code = 437) 1 % NEUTROPHILS ABSOLUTE COUNT (BEAKER) (test code = 670) 5.10 K/ L 1.78-5.38 LYMPHOCYTES ABSOLUTE COUNT (BEAKER) (test code = 414) 2.52 K/ L 1.32-3.57 MONOCYTES ABSOLUTE COUNT (BEAKER) (test code = 415) 0.88 K/ L 0. 30-0.82 H EOSINOPHILS ABSOLUTE COUNT (BEAKER) (test code = 416) 0.37 K/ L 0.04-0.54 BASOPHILS ABSOLUTE COUNT (BEAKER) (test code = 417) 0.10 K/ L 0. 01-0.08 H IMMATURE GRANULOCYTES-RELATIVE PERCENT (BEAKER) (test code = 2801) 0 % 0-1 URINALYSIS W/ [id number] 13:54:00* Test Item Value Reference Range Interpretation Comments COLOR (BEAKER) (test code = 470) Colorless CLARITY (BEAKER) (test code = 469) Clear SPECIFIC GRAVITY UA (BEAKER) (test code = 468) 1.003 1.001-1 .035 PH UA (BEAKER) (test code = 467) 6.5 5.0-8.0 PROTEIN UA (BEAKER) (test code = 464) Negative Negative GLUCOSE UA (BEAKER) (test code = 365) Negative Negative KETONES UA (BEAKER) (test code = 371) Negative Negative BILIRUBIN UA (BEAKER) (test code = 462) Negative Negative BLOOD UA (BEAKER) (test code = 461) Negative Negative NITRITE UA (BEAKER) (test code = 465) Negative Negative LEUKOCYTE ESTERASE UA (BEAKER) (test code = 466) Negative Negat jackie UROBILINOGEN UA (BEAKER) (test code = 463) 0.2 mg/dL 0.2-1.0 RBC UA (BEAKER) (test code = 519) 0 /HPF WBC UA (BEAKER) (test code = 520) 1 /HPF SOURCE(BEAKER) (test code = 2795) Urine, Voided CREATININE, RANDOM [id number] 13:35:00* Test Item Value Reference Range Interpretation Comments CREATININE URINE (BEAKER) (test code = 375) 22.1 mg/dL Reference Range: No NormalsSODIUM, RANDOM [id number] 13:35:00* Test Item Value Reference Range Interpretation Comments SODIUM URINE (BEAKER) (test code = 243) 37 meq/L Reference Range: No [id number] 06:11:00* Test Item Value Reference Range Interpretation Comments MAGNESIUM (BEAKER) (test code = 627) 1.8 mg/dL 1.6-2.6 BASIC METABOLIC [id number] 06:11:00* Test Item Value Reference Range Interpretation Comments SODIUM (BEAKER) (test code = 381) 138 meq/L 136-145 POTASSIUM (BEAKER) (test code = 379) 4.2 meq/L 3.5-5.1 CHLORIDE (BEAKER) (test code = 382) 105 meq/L 98-107 CO2 (BEAKER) (test code = 355) 24 meq/L 22-29 BLOOD UREA NITROGEN (BEAKER) (test code = 354) 24 mg/dL 7-21 H CREATININE (BEAKER) (test code = 358) 1.27 mg/dL 0.57-1.25 H GLUCOSE RANDOM (BEAKER) (test code = 652) 103 mg/dL 70-105 CALCIUM (BEAKER) (test code = 697) 9.6 mg/dL 8.4-10.2 EGFR (BEAKER) (test code = 1092) 56 mL/min/1.73 sq m ESTIMATED GFR IS NOT ACCURATE CREATININE CLEARANCE IN PREDICTING GLOMERULAR FILTRATION RATE. ESTIMATED GFR IS NOT APPLICABLE FOR DIALYSIS PATIENTS. [id number] 06:05:00* Test Item Value Reference Range Interpretation Comments PARTIAL THROMBOPLASTIN TIME (BEAKER) (test code = 760) 90.9 seconds 22.5-36.0 H CBC W/PLT COUNT & AUTO [id number] 04:26:00* Test Item Value Reference Range Interpretation Comments WHITE BLOOD CELL COUNT (BEAKER) (test code = 775) 8.9 K/ L 3.5- 10.5 RED BLOOD CELL COUNT (BEAKER) (test code = 761) 3.96 M/ L 4.63-6 .08 L HEMOGLOBIN (BEAKER) (test code = 410) 12.7 GM/DL 13.7-17.5 L HEMATOCRIT (BEAKER) (test code = 411) 38.9 % 40.1-51.0 L MEAN CORPUSCULAR VOLUME (BEAKER) (test code = 753) 98.2 fL 79. 0-92.2 H MEAN CORPUSCULAR HEMOGLOBIN (BEAKER) (test code = 751) 32.1 pg 25.7-32.2 MEAN CORPUSCULAR HEMOGLOBIN CONC (BEAKER) (test code = 752) 32.6 GM/DL 32.3-36.5 RED CELL DISTRIBUTION WIDTH (BEAKER) (test code = 412) 13.8 % 11.6-14.4 PLATELET COUNT (BEAKER) (test code = 756) 250 K/CU MM 150-450 MEAN PLATELET VOLUME (BEAKER) (test code = 754) 10.3 fL 9.4-12 .4 NUCLEATED RED BLOOD CELLS (BEAKER) (test code = 413) 0 /100 WBC 0 -0 NEUTROPHILS RELATIVE PERCENT (BEAKER) (test code = 429) 55 % LYMPHOCYTES RELATIVE PERCENT (BEAKER) (test code = 430) 30 % MONOCYTES RELATIVE PERCENT (BEAKER) (test code = 431) 10 % EOSINOPHILS RELATIVE PERCENT (BEAKER) (test code = 432) 4 % BASOPHILS RELATIVE PERCENT (BEAKER) (test code = 437) 1 % NEUTROPHILS ABSOLUTE COUNT (BEAKER) (test code = 670) 4.90 K/ L 1.78-5.38 LYMPHOCYTES ABSOLUTE COUNT (BEAKER) (test code = 414) 2.61 K/ L 1.32-3.57 MONOCYTES ABSOLUTE COUNT (BEAKER) (test code = 415) 0.87 K/ L 0. 30-0.82 H EOSINOPHILS ABSOLUTE COUNT (BEAKER) (test code = 416) 0.36 K/ L 0.04-0.54 BASOPHILS ABSOLUTE COUNT (BEAKER) (test code = 417) 0.09 K/ L 0. 01-0.08 H IMMATURE GRANULOCYTES-RELATIVE PERCENT (BEAKER) (test code = 2801) 0 % 0-1 [id number] 00:19:00* Test Item Value Reference Range Interpretation Comments PARTIAL THROMBOPLASTIN TIME (BEAKER) (test code = 760) 75.7 seconds 22.5-36.0 H [id number] 18:31:00* Test Item Value Reference Range Interpretation Comments PARTIAL THROMBOPLASTIN TIME (BEAKER) (test code = 760) 79.7 seconds 22.5-36.0 H TROPONIN [id number] 14:07:00* Test Item Value Reference Range Interpretation Comments TROPONIN I (BEAKER) (test code = 397) 4.78 ng/mL 0.00-0.03 HH Troponin I (TnI) levels must be interpreted in the context of the presenting sym ptoms and the clinical findings. Elevated TnI levels indicate myocardial damage, but are not specific for ischemic heart disease. Elevated TnI levels are seen i n patients with other cardiac conditions (including myocarditis and congestive h eart failure), and slight TnI elevations occur in patients with other conditions , including sepsis, renal failure, acidosis, acute neurological disease, and per sistent tachyarrhythmia.[id number] 08:52:00* Test Item Value Reference Range Interpretation Comments PARTIAL THROMBOPLASTIN TIME (BEAKER) (test code = 760) 60.3 seconds 22.5-36.0 H TROPONIN [id number] 07:49:00* Test Item Value Reference Range Interpretation Comments TROPONIN I (BEAKER) (test code = 397) 5.40 ng/mL 0.00-0.03 HH Troponin I (TnI) levels must be interpreted in the context of the presenting sym ptoms and the clinical findings. Elevated TnI levels indicate myocardial damage, but are not specific for ischemic heart disease. Elevated TnI levels are seen i n patients with other cardiac conditions (including myocarditis and congestive h eart failure), and slight TnI elevations occur in patients with other conditions , including sepsis, renal failure, acidosis, acute neurological disease, and per sistent tachyarrhythmia.[id number] 07:33:00* Test Item Value Reference Range Interpretation Comments MAGNESIUM (BEAKER) (test code = 627) 2.2 mg/dL 1.6-2.6 BASIC METABOLIC [id number] 07:33:00* Test Item Value Reference Range Interpretation Comments SODIUM (BEAKER) (test code = 381) 139 meq/L 136-145 POTASSIUM (BEAKER) (test code = 379) 4.2 meq/L 3.5-5.1 CHLORIDE (BEAKER) (test code = 382) 104 meq/L 98-107 CO2 (BEAKER) (test code = 355) 27 meq/L 22-29 BLOOD UREA NITROGEN (BEAKER) (test code = 354) 17 mg/dL 7-21 CREATININE (BEAKER) (test code = 358) 1.06 mg/dL 0.57-1.25 GLUCOSE RANDOM (BEAKER) (test code = 652) 89 mg/dL 70-105 CALCIUM (BEAKER) (test code = 697) 9.6 mg/dL 8.4-10.2 EGFR (BEAKER) (test code = 1092) 69 mL/min/1.73 sq m ESTIMATED GFR IS NOT ACCURATE CREATININE CLEARANCE IN PREDICTING GLOMERULAR FILTRATION RATE. ESTIMATED GFR IS NOT APPLICABLE FOR DIALYSIS PATIENTS. CBC W/PLT COUNT & AUTO [id number] 07:09:00* Test Item Value Reference Range Interpretation Comments WHITE BLOOD CELL COUNT (BEAKER) (test code = 775) 8.8 K/ L 3.5- 10.5 RED BLOOD CELL COUNT (BEAKER) (test code = 761) 4.05 M/ L 4.63-6 .08 L HEMOGLOBIN (BEAKER) (test code = 410) 13.1 GM/DL 13.7-17.5 L HEMATOCRIT (BEAKER) (test code = 411) 38.6 % 40.1-51.0 L MEAN CORPUSCULAR VOLUME (BEAKER) (test code = 753) 95.3 fL 79. 0-92.2 H MEAN CORPUSCULAR HEMOGLOBIN (BEAKER) (test code = 751) 32.3 pg 25.7-32.2 H MEAN CORPUSCULAR HEMOGLOBIN CONC (BEAKER) (test code = 752) 33.9 GM/DL 32.3-36.5 RED CELL DISTRIBUTION WIDTH (BEAKER) (test code = 412) 13.9 % 11.6-14.4 PLATELET COUNT (BEAKER) (test code = 756) 230 K/CU MM 150-450 MEAN PLATELET VOLUME (BEAKER) (test code = 754) 10.1 fL 9.4-12 .4 NUCLEATED RED BLOOD CELLS (BEAKER) (test code = 413) 0 /100 WBC 0 -0 NEUTROPHILS RELATIVE PERCENT (BEAKER) (test code = 429) 59 % LYMPHOCYTES RELATIVE PERCENT (BEAKER) (test code = 430) 26 % MONOCYTES RELATIVE PERCENT (BEAKER) (test code = 431) 10 % EOSINOPHILS RELATIVE PERCENT (BEAKER) (test code = 432) 3 % BASOPHILS RELATIVE PERCENT (BEAKER) (test code = 437) 1 % NEUTROPHILS ABSOLUTE COUNT (BEAKER) (test code = 670) 5.19 K/ L 1.78-5.38 LYMPHOCYTES ABSOLUTE COUNT (BEAKER) (test code = 414) 2.30 K/ L 1.32-3.57 MONOCYTES ABSOLUTE COUNT (BEAKER) (test code = 415) 0.88 K/ L 0. 30-0.82 H EOSINOPHILS ABSOLUTE COUNT (BEAKER) (test code = 416) 0.27 K/ L 0.04-0.54 BASOPHILS ABSOLUTE COUNT (BEAKER) (test code = 417) 0.09 K/ L 0. 01-0.08 H IMMATURE GRANULOCYTES-RELATIVE PERCENT (BEAKER) (test code = 2801) 0 % 0-1 [id number] 01:52:00* Test Item Value Reference Range Interpretation Comments PARTIAL THROMBOPLASTIN TIME (BEAKER) (test code = 760) 53.6 seconds 22.5-36.0 H RAD, CHEST, 1 VIEW, NON [id number] 18:22:00Reason for exam:->CHEST PAINFINAL REPORT Portable chest. MEDICAL HISTORY: Chest pain. COMPARISON STUDY: October 19, 2005. FINDINGS: The cardiac size is enlarged. There is bibasilar atelectasis or consolidation with a low inspiratory volume. No pleur al effusion or pneumothorax is seen. Degenerative changes are seen. IMPRESSION: Poor inspiration. Bibasilar atelectasis or consolidation. Signed: Char [place] Verified Date/Time: 07/10/2018 18:22:36 Reading Location: [address] Consult Reading Room Electronically signed by: ARLENE NUNES M.D. on 0 07/10/2018 06:22 PM TROPONIN [id number] 17:53:00* Test Item Value Reference Range Interpretation Comments TROPONIN I (BEAKER) (test code = 397) 0.28 ng/mL 0.00-0.03 HH Troponin I (TnI) levels must be interpreted in the context of the presenting sym ptoms and the clinical findings. Elevated TnI levels indicate myocardial damage, but are not specific for ischemic heart disease. Elevated TnI levels are seen i n patients with other cardiac conditions (including myocarditis and congestive h eart failure), and slight TnI elevations occur in patients with other conditions , including sepsis, renal failure, acidosis, acute neurological disease, and per sistent tachyarrhythmia.B-TYPE NATRIURETIC FACTOR (BNP)2018-07-10 17:43:00* Test Item Value Reference Range Interpretation Comments B-TYPE NATRIURETIC PEPTIDE (BEAKER) (test code = 700) 41 pg/mL 0-100 [id number] 17:34:00* Test Item Value Reference Range Interpretation Comments MAGNESIUM (BEAKER) (test code = 627) 1.9 mg/dL 1.6-2.6 BASIC METABOLIC [id number] 17:34:00* Test Item Value Reference Range Interpretation Comments SODIUM (BEAKER) (test code = 381) 141 meq/L 136-145 POTASSIUM (BEAKER) (test code = 379) 4.1 meq/L 3.5-5.1 CHLORIDE (BEAKER) (test code = 382) 104 meq/L 98-107 CO2 (BEAKER) (test code = 355) 27 meq/L 22-29 BLOOD UREA NITROGEN (BEAKER) (test code = 354) 21 mg/dL 7-21 CREATININE (BEAKER) (test code = 358) 1.24 mg/dL 0.57-1.25 GLUCOSE RANDOM (BEAKER) (test code = 652) 104 mg/dL 70-105 CALCIUM (BEAKER) (test code = 697) 10.1 mg/dL 8.4-10.2 EGFR (BEAKER) (test code = 1092) 57 mL/min/1.73 sq m ESTIMATED GFR IS NOT ACCURATE CREATININE CLEARANCE IN PREDICTING GLOMERULAR FILTRATION RATE. ESTIMATED GFR IS NOT APPLICABLE FOR DIALYSIS PATIENTS. [id number] 17:30:00* Test Item Value Reference Range Interpretation Comments PROTIME (BEAKER) (test code = 759) 13.2 seconds 11.7-14.7 INR (BEAKER) (test code = 370) 1.0 <=5.9 PARTIAL THROMBOPLASTIN TIME (BEAKER) (test code = 760) 28.1 seconds 22.5-36.0 RECOMMENDED COUMADIN/WARFARIN INR THERAPY RANGESSTANDARD DOSE: 2.0 - 3.0 Inclu abdirizak: PROPHYLAXIS for venous thrombosis, systemic embolization; TREATMENT for rahel ous thrombosis and/or pulmonary embolus.HIGH RISK: Target INR is 2.5-3.5 for pat ients with mechanical heart valves.CBC W/PLT COUNT & AUTO [id number] 17:22:00* Test Item Value Reference Range Interpretation Comments WHITE BLOOD CELL COUNT (BEAKER) (test code = 775) 10.1 K/ L 3.5- 10.5 RED BLOOD CELL COUNT (BEAKER) (test code = 761) 4.40 M/ L 4.63-6 .08 L HEMOGLOBIN (BEAKER) (test code = 410) 14.2 GM/DL 13.7-17.5 HEMATOCRIT (BEAKER) (test code = 411) 42.7 % 40.1-51.0 MEAN CORPUSCULAR VOLUME (BEAKER) (test code = 753) 97.0 fL 79. 0-92.2 H MEAN CORPUSCULAR HEMOGLOBIN (BEAKER) (test code = 751) 32.3 pg 25.7-32.2 H MEAN CORPUSCULAR HEMOGLOBIN CONC (BEAKER) (test code = 752) 33.3 GM/DL 32.3-36.5 RED CELL DISTRIBUTION WIDTH (BEAKER) (test code = 412) 13.8 % 11.6-14.4 PLATELET COUNT (BEAKER) (test code = 756) 256 K/CU MM 150-450 MEAN PLATELET VOLUME (BEAKER) (test code = 754) 9.6 fL 9.4-12 .4 NUCLEATED RED BLOOD CELLS (BEAKER) (test code = 413) 0 /100 WBC 0 -0 NEUTROPHILS RELATIVE PERCENT (BEAKER) (test code = 429) 79 % LYMPHOCYTES RELATIVE PERCENT (BEAKER) (test code = 430) 13 % MONOCYTES RELATIVE PERCENT (BEAKER) (test code = 431) 7 % EOSINOPHILS RELATIVE PERCENT (BEAKER) (test code = 432) 1 % BASOPHILS RELATIVE PERCENT (BEAKER) (test code = 437) 1 % NEUTROPHILS ABSOLUTE COUNT (BEAKER) (test code = 670) 7.94 K/ L 1.78-5.38 H LYMPHOCYTES ABSOLUTE COUNT (BEAKER) (test code = 414) 1.27 K/ L 1.32-3.57 L MONOCYTES ABSOLUTE COUNT (BEAKER) (test code = 415) 0.68 K/ L 0. 30-0.82 EOSINOPHILS ABSOLUTE COUNT (BEAKER) (test code = 416) 0.08 K/ L 0.04-0.54 BASOPHILS ABSOLUTE COUNT (BEAKER) (test code = 417) 0.08 K/ L 0. 01-0.08 IMMATURE GRANULOCYTES-RELATIVE PERCENT (BEAKER) (test code = 2801) 0 % 0-1 CTA NECK [id number] 15:53:00CLINICAL INDICATION: I65.22 Occlusion and stenosis of left carotid arteryMODALITY: [facility] [address] (Iterative dose reduction technique is used).TECHNIQUE: Images of the neck and head are initially obtained without contrast. Helical imaging of the neck and brain is performed with IV contrast. 90 mls optiray are administered IV. CT angiographic technique is used. 2D and 3D physician-assisted reconstruction are accomplished.Computed Tomography Dose Index: 88.8 mGy.IMPRESSION:1. There is moderate circumferential non ulcerating atheromatous plaque at the level of the right carotid bulb leading to approximately 30% - 40% luminal stenosis of the bulb, extending minimally into the proximal left ICA.2. There is a left carotid artery stent extending from the distal left CCA through the carotid bulb into the proximal 2 cm of the left ICA. No significant stenosis is seen in the CCA portion of the stent. At the level of the left carotid bulb and proximal ICA there is approximately 50% - 70% circumferential luminal stenosis of the stent/bulb and proximal ICA. However, antegrade flow into the non-stented left internal carotid artery and intracranial flow in the left ICA system is widely patent and normal.3. Mild patchy non ulcerating atheromatous plaque is seen in vertebral arteries and basilar artery without significant stenosis.Comment: Results were communicated to on 02/17/2018 at approximately 06:00 p.m.FINDINGS:COMPARISON: NoneNeck General Comments:No regional mass, lymphadenopathy or active process identified in the neck .Great vessels originate in normal fashion from the aorta. There is no evidence of vascular cedric gin stenosis.No evidence of vertebral or carotid dissection.Bilateral common car otid arteries are patent without stenosis or luminal irregularity.Right carotid bulb/right ICA: There is circumferential non ulcerating atheromatous plaque at t he level of the right carotid bulb, extending slightly into the proximal right I CA with luminal narrowing of approximately 40%. Distal antegrade flow into the m ajority of the right ICA is normal.Left carotid bulb/left ICA : There is a stent present in the distal left CCA, extending to the left carotid bulb into the pro ximal (approximate) 2 cm of the left ICA. The stent is widely patent throughout the CCA. At the level of the left carotid bulb, extending into the proximal ICA portion of the stent, there is luminal narrowing due to combination of atheromat ous disease and apparent stent narrowing of approximately 50 % - 70%. However, a ntegrade flow into the left internal carotid artery does not appear impeded. The re is no post stenotic dilatation. There is widely patent left cervical ICA dist al to the stent with normal antegrade flow into the intracranial circulation.[place] tebral arteries: Bilateral vertebral arteries are patent. Minimal patchy atherom atous plaque is seen in the vertebral arteries and basilar artery without signif icant stenosis.External carotid arteries are patent.PQRS 436: [id number] (For officia l use only.)MRA NECK W/O (CAROTID)2018-02-13 13:23:46CLINICAL INDICATION: H53.2 AbmdeileZ78.0 Palsy (spasm) of conjugate gazeI99.8 Other disorder of circulatory systemMODALITY: [employer] 1.5 [place] 18 channel MRITECHNIQUE: Two dimensional and three dimensional time of flight techniques are utilized. 2D and MIP reconstructions are performed.IMPRESSION:1. High-grade stenosis of the left carotid artery from the mid common carotid artery through the carotid bulb. However, there is flow in the distal cervical internal carotid artery to the level of the skull base. CT angiography of the neck is suggested for further evaluation.2. Mild stenosis of the right carotid bulb due to apparent non ulcerating plaque, approximately 20% - 30%.3. Vertebral arteries are patent in the neck.Comment: If the patient is a surgical candidate for a candidate for a vascular stent, CT angiography of the neck may be useful for further evaluation. Conventional catheter angiography may also be useful. FINDINGS:COMPARISON: NoneThe right common carotid artery is patent. There is mild plaque at the level of the right carotid bulb leading to approximately 30% - 40% luminal narrowing. The right cervical ICA is patent to the level of the skull base.The proximal left common carotid artery is patent. There is significant stenosis in the mid and distal left common carotid artery which appears almost entirely occluded fr om the mid common carotid artery, through the left carotid bulb, extending into the proximal 2 cm - 3 cm of the proximal left cervical ICA. However, normal flow is established in the mid and distal left ICA, extending to the skull base.Bila teral vertebral arteries are patent throughout the neck.Carotid stenosis measure ment - PQRS 195: 3100F Left CCA, bulb and proximal ICA stenosis is depicte d above. 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 2D and 3 D reconstructions are accomplished.IMPRESSION:No significant intracranial vascular stenosis is identified. No significant abnormalities on MR angiography of the brain and [place].FINDINGS:COMPARISON: MRA of the neck and MRI of the brain performed on the same date, 02/13/2018.The bilateral distal cervical, petrous, cavernous and supraclinoid internal carotid arteries are patent. The anterior communicating artery is patent. The visualized anterior cerebral and middle cerebral arteries are patent. The middle cerebral arteries are followed to the perisylvian regions and are patent bilaterally. No significant intracranial vascular stenosis is identified.The right posterior communicating artery is patent. There is a origin of the left posterior cerebral artery. The bilateral vertebral arteries are patent without luminal abnormalities. The basilar artery is normal. There is no evidence of basilar artery stenosis. The visualized posterior circulation is normal.There is no evidence of aneurysm or vascular malformation.There is no significant intracranial atheromatous disease, luminal stenosis or vascular filling defect.There is no evidence of intracranial large vessel vasculitic process.There are no intracranial or skull base vascular dissections.
--- NOTE | 2020-04-16 15:38 | Emergency Department Note ---
History of Present Illnes History of Present Illness Chief Complaint: Genitourinary History of Present Illness This is a 74 year old male arrives to the ED with suprapubic tender ness due to inability to urinate for the past several hours. . Chief Complaint Comment PATIENT IN FROM HOME WITH COMPLAINTS OF BEING UNABLE TO URINATE SINCE 0200. PER , DR SAUNDERS SENT THEM TO THE ER FOR EVALUATION. PATIENT TACHYPNEIC, MAX ASSIST TO TRANSFER FROM PREVIOUS STROKE, APPEARS IN NO DISTRESS, DENIES PAIN Historian: Patient, Family Member Arrival Mode: Car Onset (how long ago): hour(s) Severity: mild Onset quality: gradual Duration (how long): hour(s) Timing of current episode: constant Progression: worsening Past Medical/Family History Physician Review I have reviewed the patient's past medical and family history. Any updates have been documented here. Past Medical History Recent Fever: No Clinical Suspicion of Infectio: No New/Unexplained Change in Ment: No Review of Systems Review of Systems Constitutional: Reports no symptoms EENTM: Reports no symptoms Cardiovascular: Reports no symptoms Respiratory: Reports no symptoms Gastrointestinal: Reports no symptoms Genitourinary: Reports as per HPI, Reports other (urinary retention) Musculoskeletal: Reports no symptoms Integumentary: Reports no symptoms Neurological: Reports no symptoms Psychological: Reports no symptoms Endocrine: Reports no symptoms Hematological/Lymphatic: Reports no symptoms Physical Exam Related Data Allergies: Coded Allergies: No Known Allergies (Unverified , 04/16/20) Triage Vital Signs Vital Signs Date Time Temp Pulse Resp B/P (MAP) Pulse Ox O2 Delivery O2 Flow Rate FiO2 04/16/20 14:46 98.5 88 30 100/80 99 Room Air Vital signs reviewed: Yes Physical Exam CONSTITUTIONAL Constitutional: Present well-developed, Present well-nourished HENT HENT: Present normocephalic, Present atraumatic, Present oropharynx clear/moist, Present nose normal HENT L/R: Present left ext ear normal, Present right ext ear normal EYES Eyes: Reports PERRL, Reports conjunctivae normal NECK Neck: Present ROM normal PULMONARY Pulmonary: Present effort normal, Present breath sounds normal CARDIOVASCULAR Cardiovascular: Present regular rhythm, Present heart sounds normal, Present capillary refill normal, Present normal rate GASTROINTESTINAL Abdominal: Present soft, Present bowel sounds normal, Present tender GENITOURINARY Genitourinary: Present exam deferred SKIN Skin: Present warm, Present dry MUSCULOSKELETAL Musculoskeletal: Present ROM normal NEUROLOGICAL Neurological: Present alert, Present oriented x 3, Present no gross motor or sensory deficits PSYCHOLOGICAL Psychological: Present mood/affect normal, Present judgement normal Results Laboratory Lab results reviewed: Yes Imaging Imaging results reviewed: Yes Assessment & Plan Medical Decision Making MDM 75-year-old male arrives to the ED with complaints of urinary retention. Amezcua catheter placed after consultation with patient's urologist Dr. Saunders. Labwork done to ensure no acute renal failure, urinalysis and urine culture sent. Patient placed on antibiotics several request of urologist. Patient has outpatient urology follow-up. Assessment & Plan Final Impression: (1) Urinary retention Depart Disposition: HOME, SELF-CARE Last Vital Signs Date Time Temp Pulse Resp B/P (MAP) Pulse Ox O2 Delivery O2 Flow Rate FiO2 04/16/20 14:46 98.5 88 30 100/80 99 Room Air Home Meds Active Scripts Cephalexin Monohydrate (KEFLEX) 500 Mg Capsule, 500 MG PO Q6HR, #40 Prov:ASHLYN URRUTIA DO 04/16/20 ASHLYN URRUTIA DO Apr 16, 2020 15:38
--- NOTE | 2020-04-16 15:45 | NUR ---
DR. URRUTIA AT BEDSIDE EVALUATING PATIENT AND SPEAKING WITH
[2020-04-16 16:08] LABS: BASOPHILS % 0.4 % (0.0-1.0); HEMATOCRIT 36.8 % (38.2-49.6); LYMPHOCYTES % 12.7 % (18.0-39.1); MEAN CORPUSCULAR HEMOGLOBIN 30.9 pg (28-32); MEAN CORPUSCULAR HGB CONC 32.6 g/dL (31-35); MEAN CORPUSCULAR VOLUME 94.8 fL (81-99); MONOCYTES # (AUTO) 0.7 (0.2-0.8); MONOCYTES % 8.1 % (4.4-11.3); NEUTROPHILS # (AUTO) 6.3 (2.1-6.9); NEUTROPHILS % 78.3 % (38.7-80.0); PLATELET COUNT 172 x10e3/uL (140-360); RED BLOOD COUNT 3.88 x10e6/uL (4.3-5.7); RED CELL DISTRIBUTION WIDTH 14.9 % (11.7-14.4)
[2020-04-16 16:08] LABS: CLARITY,URINE HAZY (CLEAR); COLOR,URINE YELLOW (YELLOW); KETONES,URINE NEGATIVE (NEGATIVE); LEUKOCYTE ESTERASE ,URINE SMALL (NEGATIVE); NITRITE,URINE NEGATIVE (NEGATIVE); PROTEIN,URINE DIPSTICK 1+ (NEGATIVE); URINE UROBILINOGEN 0.2 mg/dL (0.2 - 1)
[2020-04-16 16:09] LABS: BILIRUBIN,URINE SMALL (NEGATIVE)
[2020-04-16 16:16] LABS: AMORPHOUS SEDIMENT,URINE FEW (FEW); BACTERIA,URINE MODERATE /HPF; EPITHELIAL CELLS,URINE FEW /LPF; MUCUS,URINE FEW (RARE); RBC,URINE 0-5 /HPF (0-5)
[2020-04-16 16:21] LABS: ALBUMIN 3.3 g/dL (3.5-5.0); ALBUMIN/GLOBULIN RATIO 0.9 (0.8-2.0); ANION GAP 23.4 mmol/L (8-16); CALCIUM 8.8 mg/dL (8.4-10.2); CREATININE, SERUM 1.51 mg/dL (0.72-1.25); POTASSIUM 5.4 mmol/L (3.5-5.1)
[2020-04-16 16:27] LABS: PLATELET MORPHOLOGY COMMENT NORMAL
[2020-04-16 16:28] LABS: PLATELET ESTIMATE ADEQUATE
--- NOTE | 2020-04-16 17:14 | NUR ---
CROUCH BAG CHANGED TO LEG BAG WITH RETUN DEMO
[2020-04-16] MEDS ORDERED: KEFLEX500 MG PO (17:21)
== END 2020-04-16 17:30 | disposition home or self-care (01) ==
LOC: ER 15:06
DX: R33.9 Retention of urine, unspecified (principal); I25.10 Atherosclerotic heart disease of native coronary artery without angina pectoris; E78.5 Hyperlipidemia, unspecified; G40.909 Epilepsy, unspecified, not intractable, without status epilepticus; K21.9 Gastro-esophageal reflux disease without esophagitis; F32.9 Major depressive disorder, single episode, unspecified; I69.351 Hemiplegia and hemiparesis following cerebral infarction affecting right dominant side
CPT/HCPCS: 36415; 51700; 80053; 81001; 85025; 87086; 87186; 99284